=== PATIENT | female | born 1960 | race Caucasian/White ===

== ENCOUNTER 2017-12-10 09:51 | Outpatient (CLI) | payer MEDICAID ==
[~2017-12-10] VITALS: Ht 162.6 cm; Wt 101.4 kg
--- NOTE | ~2017-12-10 | OP ---
PATIENT NAME: OBI RODRÍGUEZ MEDICAL RECORD: [id number] :58 LOCATION:D.CAT ADMISSION DATE: SURGEON: AIDEN CASTILLO MD DATE OF OPERATION: 12/10/2017 PROCEDURE: DC cardioversion. INDICATION: Atrial fibrillation. PROCEDURE IN DETAIL: IV conscious sedation was performed per anesthesia. Continuous heart rate, O2 saturation, blood pressure monitoring all undertaken, all of which remained stable. She received 1 shock at 275 joules restoring sinus rhythm. OVERALL IMPRESSION: Successful DC cardioversion from atrial fibrillation to sinus rhythm. TRANSINT:[id number] Voice Confirmation ID: [id number] DOCUMENT ID: [id number] AIDEN CASTILLO MD at 1056 CC: [id number] DICTATION DATE: 12/10/17 1319 ENDODONTICS DENTIST: 12/10/17 1327 DEP CLI 12/10/[address] [address]
--- NOTE | ~2017-12-10 | HEMODYNAMI ---
PATIENT:OBI RODRÍGUEZ MEDICAL RECORD: [id number] : 58 LOCATION:DCHRISTAL ADMISSION DATE: 12/10/17 Generatedon:12/10/201713:22 Patient name: OBI RODRÍGUEZ Patient #: [id number] SSN: : 1960 Date of study: 12/10/2017 Page: Of Hemodynamic Procedure Report Patient Data Patient Demographics Procedure consent was obtained First Name: OBI Gender: Female Last Name: MARCOS : 1960 Middle Initial: OLIVIER Age: 57 year(s) Patient #: [id number] Race: Unknown Additional ID: [id number] Contact details [address]: [address] [place] [address] State: [place] City: [place] Zip code: [address] Past Medical History Allergies Allergen Reaction Date Comments Reported Codeine 12/10/2017 Amoxicillin 12/10/2017 Admission Admission Data Admission Date: 12/10/2017 Admission Time: 9:51 Procedure Procedure Types Cath Procedure Diagnostic Procedure Cardioversion External Procedure Description Procedure Date Procedure Date: 12/10/2017 Procedure Start Time: 13:14 Procedure End Time: 13:21 Procedure Staff Name Function Rocky Orr MD Performing Physician Keerthi Barcenas RT Monitor Florentino Fernandez RN Nurse Raymond Jang CRNA Additional personnel Procedure Medications Medication Administration Route Dosage 0.9% NaCl I.V. 100 ml/hr Oxygen etCO2 Nasal cannula 3 l/min Refer to Anesthesia Notes for Sedation Medications Hemodynamics Rest Pre Cath Intra NCS Post Cath Vital Signs Time Heart Resp SPO2 etCO2 NIBP (mmHg) Rhythm Pain Sedation Rate (ipm) (%) (mmHg) Status Level (bpm) 13:13:23 131 17 100 35 210/139(192) NSR 0 (11) 10(A) , No pain 13:18:41 91 23 93 38.8 165/99(135) NSR 0 (11) 8(A) , No pain 13:20:23 91 19 94 40.3 161/94(140) NSR 0 (11) 10(A) , No pain Medications Time Medication Route Dose Verified Delivered Reason Notes Effective ness by by 13:12:58 0.9% NaCl I.V. 100 Florentino Florentino Per ml/hr Jim Fernadnez physician RN RN 13:13:10 Oxygen etCO2 3 Florentino Florentino Per Nasal l/min Jim Fernandez physician cannula RN RN 13:13:21 Refer to Florentino Florentino for Anesthesia Jim Fernandez sedation Notes for RN RN Sedation Medications Procedure Log Time Note 12:59:40 Keerthi Counts RT(R) sent for patient. Start room use. 12:59:41 Time tracking: Regular hours 12:59:44 Plan of Care:Hemodynamics will remain stable., Cardiac rhythm will remain stable., Comfort level will be maintained., Respiratory function will remain adequate., Patient/ family verbilizes understanding of procedure., Procedure tolerated without complication., Recovers from procedure without complications.. 13:05:24 Patient received from Pre/Post Procedure Room to CCL 1 Alert and oriented. Tansferred to table in Supine position. 13:10:30 Warm blankets applied, and lian hugger turned on for patient comfort. 13:10:30 Correct patient and procedure confirmed by team. 13:10:31 Signed procedure consent form obtained from patient. 13:10:33 Vital chart was started 13:10:34 ECG and BP/O2 sat monitors applied to patient. 13:11:07 Rhythm: atrial fibrillation 13:11:08 Full Disclosure recording started 13:11:18 H&P Date Dictated: 12/02/2017 Within 30 days and on chart., H&P Addendum completed by physician on day of procedure. (MUST COMPLETE FOR ALL OUTPATIENTS). 13:11:19 Pre-procedure instructions explained to patient. 13:11:20 Pre-op teaching completed and patient verbalized understanding. 13:11:22 Family in waiting room. 13:11:23 Patient NPO since Midnight. 13:11:32 Patient allergic to Codeine 13:11:36 Patient allergic to Amoxicillin 13:11:55 Is patient on blood thinner?Yes 13:11:57 ACC The patient was administered the following blood thiners within the last 24 hours: Xarelto 13:12:00 Patient diabetic? No. 13:12:03 Previous problem with sedation/anesthesia? No ? 13:12:04 Snore? Yes 13:12:05 Sleep apnea? No 13:12:05 Deviated septum? No 13:12:06 Opens mouth fully? Yes 13:12:07 Sticks out tongue? Yes 13:12:09 Airway obstruction? No ? 13:12:18 Dentures? No No Teeth 13:12:35 IV patent on arrival in left forearm with 0.9% NaCl at [facility]. 13:12:38 Lab results completed and on chart. 13:12:41 Alarms reviewed by RLibra N. 13:12:42 Final Timeout: patient, procedure, and site verified with staff and physician. All members of the team are in agreement. 13:12:47 Physical assessment completed. ASA score P 2 - A patient with mild systemic disease as per Rocky Orr MD. 13:12:50 Sedation plan: TIVA Medication:Propofol 13:12:58 0.9% NaCl 100 ml/hr I.V. was administered by Florentino Fernandez RN; Per physician; 13:13:10 Oxygen 3 l/min etCO2 Nasal cannula was administered by Florentino Fernandez RN; Per physician; 13:13:18 Raymond Jang CRNA present and monitoring patient for TIVA. 13:13:19 Quick combo pads placed on patients chest and back. 13:13:21 Refer to Anesthesia Notes for Sedation Medications was administered by Florentino Fernandez RN; for sedation; 13:14:39 Procedure started. 13:15:43 Defibrillator synced and charged to 275 Joules. 13:15:45 Shock delivered. 13:15:54 Patient cardioverted to sinus rhythm . 13:16:01 Procedure ended.(Physican Out) 13:17:06 Post procedure rhythm: sinus rhythm 13:17:12 Post procedure instruction explained to patient.Patient verbalizes understanding. 13:17:12 Patient needs reinforcement of post procedure teaching. 13:17:21 Procedure and supply charges have been captured, reviewed, submitted and are correct. 13:17:26 See physician's report for complete and final results. 13:17:39 Quick Combo opened to sterile field. 13:20:45 Vital chart was stopped 13:20:47 Report given to Pre/Post Procedure Room. 13:20:49 Patient transfered to Pre/Post Procedure Room with Stretcher. 13:21:02 Procedure ended. 13:21:02 Full Disclosure recording stopped 13:21:04 End room use (Document Last) Device Usage Item Manufacture Quantity Catalog Hospital Part Current Minimal Lot# / Name Number Charge Number Stock Dianne teran# Code Cloudmeter 1 [id number] Combo Signature Audit Peel Stage Time Signature Unsigned Intra-Procedure 12/10/2017 Keerthi 1:22:27 PM Counts RT(R) Signatures Monitor : Keerthi Signature : Counts RT Date : Time : [address] [address]
[2017-12-10] MEDS ORDERED: FUROSEMIDE20 MG PO (11:12)
[2017-12-10] MEDS ORDERED: XARELTO20 MG PO (11:12)
[2017-12-10 11:13] VITALS: BP 186/133; Ht 162.6 cm; Wt 101.4 kg
[2017-12-10] MEDS ORDERED: ZANTAC300 MG PO (11:13)
[2017-12-10] MEDS ORDERED: PROPAFENONE HC150 MG PO (11:13)
[2017-12-10] MEDS ORDERED: LISINOPRIL10 MG PO (11:13)
[2017-12-10 11:19] LABS: BASOPHILS 0.5 % (0-2); HEMATOCRIT 44.1 % (36.0-48.0); HEMOGLOBIN 15.4 g/dL (12-16); IMMATURE GRANULOCYTES 0.2 % (0-5); LYMPHOCYTES 30.7 % (15-50); MCH 33.7 pg (26.0-34.0); MCHC 34.9 g/dL (31.0-37.0); MCV 96.5 fL (80.0-100.0); MEAN PLATELET VOLUME 11.4 fL (7.4-10.4); MONOCYTES 11.5 % (2-11); NEUTROPHILS 55.1 % (40-80); PLATELET COUNT 108 10x3/uL (130-400); RBC 4.57 10x6/uL (4.00-5.40); RDW 13.4 % (11.5-14.5); WBC 5.9 10x3/uL (4.8-10.8)
[2017-12-10 11:34] LABS: ANION GAP 12.3 mmol/L (8-16); CARBON DIOXIDE 28.9 mmol/L (21.0-32.0); CREATININE - SERUM 1.1 mg/dL (0.6-1.3); POTASSIUM - SERUM 4.2 mmol/L (3.5-5.1)
[2017-12-10 11:36] LABS: INR 1.89 (0.85-1.17); PROTIME 21.1 SECONDS (11.6-15.0)
== END 2017-12-10 14:48 | disposition home or self-care (01) ==
LOC: D.CATH 09:51
PROVIDERS: Internal Medicine Interventional Cardiology
DX: I48.91 Unspecified atrial fibrillation (principal); Z01.812 Encounter for preprocedural laboratory examination

== ENCOUNTER 2019-06-25 03:45 | Inpatient (IN) | payer MEDICAID ==
[~2019-06-25] VITALS: Ht 162.6 cm; Wt 109.0 kg
[~2019-06-25 03:45] MED LIST: FUROSEMIDE20 MG PO; LISINOPRIL10 MG PO; PROPAFENONE HC150 MG PO; XARELTO20 MG PO; ZANTAC300 MG PO
[2019-06-25] MEDS ORDERED: REXULTI1 MG PO (03:54)
[2019-06-25] MEDS ORDERED: CARDIZEM60 MG PO (03:55)
[2019-06-25] MEDS ORDERED: AMBIEN10 MG PO (03:55)
[2019-06-25] MEDS ORDERED: BETAPACE 120 M120 MG PO (03:55)
[2019-06-25 04:11] LABS: BASOPHILS 0.3 % (0-2); EOSINOPHILS 0.3 % (0-7); HEMATOCRIT 43.2 % (36.0-48.0); HEMOGLOBIN 14.7 g/dL (12-16); IMMATURE GRANULOCYTES 0.3 % (0-5); MCH 33.3 pg (26.0-34.0); MEAN PLATELET VOLUME 11.5 fL (7.4-10.4); MONOCYTES 7.9 % (2-11); NEUTROPHILS 74.2 % (40-80); PLATELET COUNT 162 10x3/uL (130-400); RBC 4.41 10x6/uL (4.00-5.40); WBC 11.8 10x3/uL (4.8-10.8)
[2019-06-25 04:23] LABS: APTT 28.5 SECONDS (22.8-39.4); CALC OSMOLALITY 260 mosm/kg (275-300); CALCIUM 9.1 mg/dL (8.5-10.1); CARBON DIOXIDE 27.4 mmol/L (21.0-32.0); CHLORIDE - SERUM 95 mmol/L (98-107); CREATININE - SERUM 1.1 mg/dL (0.6-1.3); GLUCOSE 117 mg/dL (74-106); INR 1.28 (0.85-1.17); POTASSIUM - SERUM 3.8 mmol/L (3.5-5.1); PROTIME 15.4 SECONDS (11.6-15.0); SODIUM 129 mmol/L (136-145); UREA NITROGEN 16 mg/dL (7-18); eGFR NON AFRICAN AMERICAN 54 mL/min (90-120)
[2019-06-25 04:24] LABS: D-DIMER-QUANTITATIVE 1.69 ug/mLFEU (0.20-0.54)
[2019-06-25 04:51] LABS: ALKALINE PHOSPHATASE 69 U/L (46-116); ALT (SGPT) 7 U/L (10-68); BILIRUBIN - TOTAL 1.36 mg/dL (0.2-1.3); CKMB 0.2 U/L (0.0-3.6); CREATINE KINASE 31 UL (21-215); PROTEIN - SERUM 9.2 g/dL (6.4-8.2); TROPONIN-I < 0.017 ng/mL (0.000-0.060); URIC ACID 9.7 mg/dL (2.6-7.2)
--- NOTE | 2019-06-25 05:16 | NUR ---
PT LEFT ED VIA STRETCHER FOR CT.
--- NOTE | 2019-06-25 05:41 | NUR ---
PT REMAINS IN RADIOLOGY FOR US.
--- NOTE | 2019-06-25 05:53 | NUR ---
PT RETURNED FROM RADIOLOGY VIA STRETCHER.
--- NOTE | 2019-06-25 06:30 | NUR ---
PT ASSISTED WITH BEDPAN. APPROX 100ML DARK YELLOW URINE NOTED.
--- NOTE | 2019-06-25 06:49 | NUR ---
RN CALLED AND UPDATED PT SPOUSE, PONCHO, PER PT REQUEST, ON PLAN OF CARE.
[2019-06-25 12:12] VITALS: BP 143/71; BMI 39.5
[2019-06-25 12:38] VITALS: BP 146/89
[2019-06-25 16:09] VITALS: BP 109/70
[2019-06-25 21:09] VITALS: BP 113/57
[2019-06-26 00:53] VITALS: BP 99/55
--- NOTE | 2019-06-26 05:41 | NUR ---
PT ANXIOUS AND CRYING. STATES PAIN TOO GREAT, CAN'T GET ANY SLEEP AND NEEDS SOMETHING "MORE". TRIED TO CALM PT DOWN. ELEVATED FEET ON PILLOWS. GAVE DEMEROL 50 MG AND ATIVAN 1 MG IV PUSH. PT STARTING TO RELAX. NO OTHER NEEDS. WILL CONTINUE TO MONITOR.
[2019-06-26 06:50] LABS: BASOPHILS 0.2 % (0-2); EOSINOPHILS 1.4 % (0-7); LYMPHOCYTES 21.5 % (15-50); MCHC 32.9 g/dL (31.0-37.0); MEAN PLATELET VOLUME 11.2 fL (7.4-10.4); MONOCYTES 8.5 % (2-11); NEUTROPHILS 68.4 % (40-80); RDW 13.3 % (11.5-14.5)
[2019-06-26 06:56] LABS: HEMOGLOBIN 11.5 g/dL (12-16); MCV 100.3 fL (80.0-100.0); PLATELET COUNT 117 10x3/uL (130-400); RBC 3.49 10x6/uL (4.00-5.40); WBC 6.2 10x3/uL (4.8-10.8)
[2019-06-26 07:34] LABS: ANION GAP 10.1 mmol/L (8-16); CALCIUM 8.2 mg/dL (8.5-10.1); CARBON DIOXIDE 29.4 mmol/L (21.0-32.0); CREATININE - SERUM 1.3 mg/dL (0.6-1.3); PHOSPHOROUS 3.2 mg/dL (2.5-4.9); POTASSIUM - SERUM 3.5 mmol/L (3.5-5.1)
--- NOTE | 2019-06-26 07:38 | NUR ---
PT RESTING IN BED. NO SIGNS OF DISTRESS. IV TO RIGHT WRIST PATENT NO REDNESS OR TENDERNESS. RIGHT FOOT SWOLLEN. ON TELEMETRY 80 SR. DENIES ANY FURTHER NEED AT THIS TIME. CALL LIGHT IN REACH. BED LOW POSITION. NO FAMILY AT BEDSIDE.
[2019-06-26 08:01] VITALS: BP 124/74
[2019-06-26 12:41] LABS: % SATURATION 11 % (15-55); IRON 22 ug/dl (35-150); TOTAL IRON BIND CAPACITY 195 ug/dl (260-445); UNSAT IRON BIND CAPACITY 173 ug/dl (150-375)
[2019-06-26 13:20] VITALS: BP 99/64
--- NOTE | 2019-06-26 13:46 | NUR ---
I have reviewed this patient and I concur with the Shift Assessment completed by the Licensed Practical Nurse today this shift.
[2019-06-26 16:47] VITALS: BP 126/68
[2019-06-26 20:50] VITALS: BP 146/50
--- NOTE | 2019-06-27 00:27 | NUR ---
REC'D DURING WALKING ROUNDS LYING ON RIGHT SIDE EYES CLOSED RESP; DEEP AND EVEN WILL CONTINUE TO MONITOR FOR ANY CHGES. AND FOLLOW CURRENT PLAN OF CARE
[2019-06-27 01:04] VITALS: BP 114/61
--- NOTE | 2019-06-27 03:57 | NUR ---
I have reviewed this patient and I concur with the Shift Assessment completed by the Licensed Practical Nurse today this shift.
[2019-06-27 04:42] VITALS: BP 135/72
[2019-06-27 06:08] LABS: BASOPHILS 0.1 % (0-2); HEMATOCRIT 35.1 % (36.0-48.0); HEMOGLOBIN 11.4 g/dL (12-16); IMMATURE GRANULOCYTES 0.1 % (0-5); LYMPHOCYTES 16.2 % (15-50); MCHC 32.5 g/dL (31.0-37.0); MCV 101.7 fL (80.0-100.0); MEAN PLATELET VOLUME 11.6 fL (7.4-10.4); MONOCYTES 10.6 % (2-11); PLATELET COUNT 120 10x3/uL (130-400); RBC 3.45 10x6/uL (4.00-5.40); RDW 13.4 % (11.5-14.5); WBC 6.9 10x3/uL (4.8-10.8)
[2019-06-27 06:44] LABS: ALBUMIN 2.5 g/dL (3.4-5.0); ANION GAP 9.5 mmol/L (8-16); BILIRUBIN - TOTAL 1.06 mg/dL (0.2-1.3); CALCIUM 8.5 mg/dL (8.5-10.1); CARBON DIOXIDE 28.4 mmol/L (21.0-32.0); CREATININE - SERUM 1.1 mg/dL (0.6-1.3); POTASSIUM - SERUM 3.9 mmol/L (3.5-5.1); PROTEIN - SERUM 7.2 g/dL (6.4-8.2)
--- NOTE | 2019-06-27 07:00 | NUR ---
PATIENT RECIEVED FROM PREVIOUS SHIFT. RESTING IN BED WITH EYES CLOSED. AROUSED EASILY, AWAKE ORIENTED, MILD REDNESS TO RIGHT FOOT WITH 2+ EDEMA NOTED. CL IN REACH
[2019-06-27 08:27] VITALS: BP 135/80
[2019-06-27 12:34] VITALS: BP 101/63
--- NOTE | 2019-06-27 14:06 | NUR ---
RIGHT FOOT PAIN NOT RELIEVED WITH TYLENOL. ORDER OBTAINED TO GIVE NORCO, WILL CONT TO MONITOR
[2019-06-27 16:06] LABS: APPEARANCE CLEAR (CLEAR); BILIRUBIN NEGATIVE (NEGATIVE); COLOR DK YELLOW (YELLOW); GLUCOSE NEGATIVE (NEGATIVE); KETONE NEGATIVE (NEGATIVE); NITRITE NEGATIVE (NEGATIVE); PROTEIN NEGATIVE (NEGATIVE); SPECIFIC GRAVITY 1.015 (1.005-1.020)
[2019-06-27 17:19] VITALS: BP 103/53
--- NOTE | 2019-06-27 20:00 | NUR ---
ALERT RESTING IN BED FLAT ON BACK, STATES BACK FEELS BETTER THIS WAY, RESP UNLABORED O2 IN USE AT 2L N/C, EDEMA NOTED TO BILATERAL FEET AND ANKLES, RIGHT WORSE WITH REDNESS NOTED, SEE SHIFT ASSESSMENT CALL LIGHT IN REACH
[2019-06-27 20:34] VITALS: BP 123/65
--- NOTE | 2019-06-28 00:15 | NUR ---
CALLED TO ROOM BY PT SITTING UP ON SIDE OF BED STATES I CANT BREATH,AND IM NAUSEATED O2 SAT CHECKED AT 87% ON 2 L, ENCOURAGED TO BREATH IN THROUGH NOSE AND OUT THROUGH MOUTH O2 CONTINUES AT 2 L N/C, O2 SAT REMAINING AT 86-89%, O2 INCREASED TO 3 L O2 SAT UP TO 90-91 %, RT NOTIFIED, NOW LYING BACK IN BED, REFUSED TO HAVE HOB ELEVATED, STATES FEELING BETTER
--- NOTE | 2019-06-28 00:45 | NUR ---
AGAIN CALLED TO ROOM APEARS SHORT OF BREATH WITH AUDIABLE WHEEZING NOTED, O2 SAT PER RT AT 88% INCREASED O2 TO 4L, Hunter PAUL ANP NOTIFIED OF ABOVE ORDERS RECIEVED, RT NOTIFIED OF ORDER FOR RT TX
[2019-06-28 01:19] VITALS: BP 130/74
[2019-06-28 05:03] VITALS: BP 143/88
[2019-06-28 05:55] LABS: BASOPHILS 0.2 % (0-2); EOSINOPHILS 0.5 % (0-7); HEMATOCRIT 32.7 % (36.0-48.0); HEMOGLOBIN 10.7 g/dL (12-16); IMMATURE GRANULOCYTES 0.3 % (0-5); LYMPHOCYTES 7.5 % (15-50); MCH 33.4 pg (26.0-34.0); MCHC 32.7 g/dL (31.0-37.0); MCV 102.2 fL (80.0-100.0); MEAN PLATELET VOLUME 12.1 fL (7.4-10.4); MONOCYTES 9.5 % (2-11); PLATELET COUNT 139 10x3/uL (130-400); RDW 13.2 % (11.5-14.5)
[2019-06-28 06:14] LABS: ALBUMIN 2.5 g/dL (3.4-5.0); ANION GAP 9.5 mmol/L (8-16); BILIRUBIN - TOTAL 0.9 mg/dL (0.2-1.3); CALCIUM 8.2 mg/dL (8.5-10.1); CARBON DIOXIDE 27.3 mmol/L (21.0-32.0); CREATININE - SERUM 1.1 mg/dL (0.6-1.3); POTASSIUM - SERUM 3.8 mmol/L (3.5-5.1); PROTEIN - SERUM 7.3 g/dL (6.4-8.2); VANCOMYCIN - TROUGH 17.8 ug/mL (10.0-20.0)
--- NOTE | 2019-06-28 07:25 | NUR ---
ALERT AND ORIENTED, RESTING IN BED. NO C/O PAIN. NO S/S OF ACUTE DISTRESS NOTED. IV OUT. RIGHT FOOT CELLULITIS, REDNESS AND SWELLING PRESENT. TELEMETRY 100 CONTROLLED AFIB. ON 4L O2, NC. PATIENT DENIES ANY NEEDS A THIS TIME. CALL LIGHT IN REACH. WILL CONTINUE TO MONITOR.
[2019-06-28 09:21] VITALS: BP 119/51
--- NOTE | 2019-06-28 11:31 | NUR ---
I have reviewed this patient and I concur with the Shift Assessment completed by the Licensed Practical Nurse today this shift.
--- NOTE | 2019-06-28 11:33 | NUR ---
Rehab Note- Acute Inpatient Rehab prescreen order received. The patient has [employer] Insurance and will require a PreAuth prior to an inpatient acute rehab stay. Has a pending OT Eval that will need to be done for PreAuth process. Will begin PreAuth process. Will follow at this time. Thank you for this referral! Teri Del Rio RN Clinical Liaison, [facility] Rehab
[2019-06-28 12:40] VITALS: BP 113/56
--- NOTE | 2019-06-28 12:41 | NUR ---
Rehab Note- SPoke with Mary Anne schafer/ July to verify benefits, spoke with Luz Elena with the care management team to initiate a PreAuth. Faxed clinicals to [phone]. Will await determination from Maiice. Will continue to follow at this time. Thank you for this referral! Teri Del Rio RN Clinical Liaison, [facility] Rehab
--- NOTE | 2019-06-28 13:01 | MORECARE ---
CASE MANAGEMENT DISCHARGE SUMMARY PATIENT: OBI RODRÍGUEZ UNIT: [id number] ADM DATE: 06/25/19 AGE: 59 : 58 SEX: F [facility] AUTHOR: CHIQUITA ISLAS PHYSICIAN: REFERRING PHYSICIAN: MIC ORR MD DATE OF SERVICE: 06/28/19 Discharge Plan Patient Name: OBI RODRÍGUEZ Facility: [facility]:[place] : 1960 Planned Disposition: Inpatient Rehab Anticipated Discharge Date: Discharge Date: Expected LOS: Initial Reviewer: [email or web address] Initial Review Date: 06/28/2019 Generated: 06/28/19 2:00 pm Patient Name: OBI RODRÍGUEZ Page [id number] at 1301 All edits/amendments must be made on the electronic document DICTATION DATE: 06/28/19 1300 HEAD OF MARKETING ADOMETRY: AUTUMN 06/28/19 1300 RPT#: [id number] DC DATE: STATUS: ADM IN [facility] [address] [place] [address] END OF REPORT
--- NOTE | 2019-06-28 13:13 | MORECARE ---
CASE MANAGEMENT DISCHARGE SUMMARY PATIENT: OBI LAST UNIT: [id number] ADM DATE: 06/25/19 AGE: 59 : 58 SEX: F ROOM/BED: D.2235 AUTHOR: JANEL,DOC PHYSICIAN: REFERRING PHYSICIAN: MIC ORR MD DATE OF SERVICE: 06/28/19 Discharge Plan Patient Name: OBI LAST Facility: [facility]:[place] : 1960 Planned Disposition: Inpatient Rehab Anticipated Discharge Date: Discharge Date: Expected LOS: Initial Reviewer: [email or web address] Initial Review Date: 06/28/2019 Generated: 06/28/19 2:12 pm Comments DCP- Discharge Planning Updated by [email or web address]: Amita Guerrier on 06/28/19 12:[address] Patient Name: OBI LAST Admission Status: Elective Accout number: [id number] Admission Date: 06-25-2019 : 1960 Admission Diagnosis: Attending: MIC ORR Current LOS: 3 Anticipated DC Date: Planned Disposition: Inpatient Rehab [facility] [place] [facility] [place] Discharge Planning Comments: CM met with patient to discuss discharge planning/needs. She states she is tired and to ask questions quickly. I offered to return later and she says "no". She states she lives with her . She states "he helps me with everything." I discussed the availability of inpatient rehab, SNF, home health and DME. She states "I don't know, I just want to go to sleep." I asked if I could order inpatient rehab screen, and she states yes. Rehab prescreen has been ordered as well as OT and PT consults. CM will continue to follow and assist with discharge planning/needs. Carpet Technician: Amita Guerrier DCPIA - Discharge Planning Initial Assessment Updated by [email or web address]: Amita Guerrier on 06/28/19 1:05 pm * Is the patient Alert and Oriented? Yes * How many steps to enter\\exit or inside your home? 0/0 * PCP Dr. Keane at [facility] * Pharmacy [facility] on [address] * Preadmission Environment Home with Family * ADLs Partial Dependent * Partial ADLs (Assistance needed) Ambulation Bathing Dressing Medication Management Toileting Transfers * Equipment Rolling Walker Wheelchair * List name and contact numbers for known caregivers / representatives who currently or will assist patient after discharge: Barrera Last - spouse - [phone] * Verbal permission to speak to the caregivers and representatives has been obtained from the patient. Yes * Community resources currently utilized None * Additional services required to return to the preadmission environment? Yes * Can the patient safely return to the preadmission environment? No * Has this patient been hospitalized within the prior 30 days at any hospital? No Last DP export: 06/28/19 12:01 Patient Name: OBI LAST Page [phone] at 1313 All edits/amendments must be made on the electronic document DICTATION DATE: 06/28/191311 PIANO CASE AND BENCH ASSEMBLER: AUTUMN 06/28/191311 RPT#: [id number] SD DATE: STATUS: ADM IN [facility] [address] [place] [address] END OF REPORT
[2019-06-28 13:20] VITALS: Ht 162.6 cm; Wt 109.0 kg
[2019-06-28 16:56] VITALS: BP 113/69
--- NOTE | 2019-06-28 17:23 | NUR ---
OT NOTE: PT EXHIBITS SELF LIMITING BEHAVIOR. PT COMPLETED BED MOB TASKS WITH MOD A. PT COMPLETED EOB SITTING WITH SBA. PT COMPLETED FACE/HAND WASH WITH SET UP. PT REQUIRED MAX VERBAL CUES FOR INCREASED PARTICIPATION. JESSICA GOMEZ COTA
--- NOTE | 2019-06-28 18:37 | NUR ---
ALERT AND ORIENTED, RESTING IN BED. C/O PAIN, GAVE NORCO FOR PAIN. NO S/S OF ACUTE DISTRESS NOTED. DENIES ANY NEEDS AT THIS TIME. CALL LIGHT IN REACH. WILL CONTINUE TO MONITOR.
--- NOTE | 2019-06-28 19:34 | NUR ---
IN BED WITH TELEVISION ON, IV TO LEFT HAND IS PATENT AT THIS TIME. MVI INFUSING PER ORDERS. TELEMETRY IN USE. DOES NOT WANT TO TAKE AMBIEN THIS EVENING, STATES SHE DOES NOT LIKE HOW IT MADE HER FEEL LAST DOSE. WILL NOTE ANY CHANGE.
[2019-06-28 20:39] VITALS: BP 158/72
--- NOTE | 2019-06-28 23:53 | NUR ---
PT IV WAS NO LONGER PATENT, 24G TO OUTER LEFT WRIST TIMES ONE STICK VIA CHARGE NURSE, FLUIDS RESUMED PER ORDERS. WILL NOTE ANY CHANGE.
--- NOTE | 2019-06-29 00:09 | NUR ---
REQUESTED MEDS FOR QUEASY STOMACH, GIVEN ZOFRAN PER ORDERS. ALSO USED BEDPAN WITH MINIMAL ASSIST.
[2019-06-29 01:22] VITALS: BP 154/70
--- NOTE | 2019-06-29 01:41 | NUR ---
I have reviewed this patient and I concur with the Shift Assessment completed by the Licensed Practical Nurse today this shift.
--- NOTE | 2019-06-29 03:49 | NUR ---
assisted on bedpan by this nurse times 3 this shift, did not want to put weight on feet for bedside commode.
--- NOTE | 2019-06-29 03:58 | NUR ---
HAS RESTED WELL THIS SHIFT, BUT WHEN THIS NURSE GOES TO CHECK ON PT, SHE WAKES UP AND SAYS SHES NOT HAVING A GOOD NIGHT, THIS NURSE REASSURES HER THAT SHE APPEARS TO BE RESTING AND HAS NO OBVIOUS DISTRESS AT THIS TIME.
[2019-06-29 05:03] VITALS: BP 120/66
[2019-06-29 06:13] LABS: BASOPHILS 0.2 % (0-2); EOSINOPHILS 1.6 % (0-7); HEMATOCRIT 32.2 % (36.0-48.0); HEMOGLOBIN 10.2 g/dL (12-16); IMMATURE GRANULOCYTES 0.3 % (0-5); LYMPHOCYTES 15.8 % (15-50); MCH 32.8 pg (26.0-34.0); MCHC 31.7 g/dL (31.0-37.0); MCV 103.5 fL (80.0-100.0); MEAN PLATELET VOLUME 12.5 fL (7.4-10.4); MONOCYTES 10.2 % (2-11); NEUTROPHILS 71.9 % (40-80); PLATELET COUNT 127 10x3/uL (130-400); RBC 3.11 10x6/uL (4.00-5.40); RDW 13.4 % (11.5-14.5)
[2019-06-29 06:43] LABS: ALBUMIN 2.3 g/dL (3.4-5.0); ANION GAP 9.1 mmol/L (8-16); BILIRUBIN - TOTAL 0.46 mg/dL (0.2-1.3); CALCIUM 8.8 mg/dL (8.5-10.1); CARBON DIOXIDE 26.7 mmol/L (21.0-32.0); CREATININE - SERUM 1.1 mg/dL (0.6-1.3); POTASSIUM - SERUM 3.8 mmol/L (3.5-5.1); PROTEIN - SERUM 7.6 g/dL (6.4-8.2)
[2019-06-29 06:58] LABS: WBC 6.1 10x3/uL (4.8-10.8)
--- NOTE | 2019-06-29 07:05 | NUR ---
ALERT AND ORIENTED, RESTING IN BED. NO C/O PAIN. NO S/S OF ACUTE DISTRESS NOTED. 4L 02, NC. TELEMETRY 75 CONTROLLED AFIB. IV TO LEFT HAND, MVI @ 125ML/HR. SITE PATENT WITHOUT REDNESS OR SWELLING. BLE SWELLING AND REDNESS TO RIGHT FOOT. DENIES ANY NEEDS AT THIS TIME. CALL LIGHT IN REACH. WILL CONTINUE TO MONITOR.
[2019-06-29 09:21] VITALS: BP 123/75
--- NOTE | 2019-06-29 11:33 | NUR ---
I have reviewed this patient and I concur with the Shift Assessment completed by the Licensed Practical Nurse today this shift.
[2019-06-29 13:10] VITALS: BP 116/72
--- NOTE | 2019-06-29 15:11 | NUR ---
OT NOTE: PT INITIALLY RESISTANT TO MOVING FROM BED. STATED THAT SHE NEEDED TO URINATE BUT DID NOT WANT TO USE BS COMMODE. STRONGLY ENCOURAGED PT TO PERFORM IF SHE WANTED TO IMPROVE AND RETURN HOME. BED MOB WITH MIN ASSIST AND EXT TIME; SIT TO STAND WITH MIN ASSIST AND USE OF WALKER; TRANSFERRED TO BS COMMODE WITH CONTINUOUS COMPLAINTS OF PAIN AND FREQ EPISODES OF CRYING. PT STATING THAT SHE CANT WIPE HERSELF SHE CANT REACH BETWEEN HER LEGS. HAD PT MAKE NUMEROUS ATTEMPTS TO PERFORM TOILET HYGIENE BEFORE ASSISTING HER. PT STRONGLY ENCOURAGED TO SIT UP IN CHAIR FOLLOWING TOILETING. PT VERY RESISTANT BUT DID AGREE TO SIT UP FOR A SHORT TIME. RECOMMENDED THAT PT SIT UP THROUGH LUNCH, HOWEVER, AFTER APPROX 30 MIN SHE REFUSED TO SIT UP ANY LONGER. ASSISTED PT BACK TO BED AND SHE BECAME VERBALLY INAPPROPRIATE WITH P.T. SENIOR ACCOUNT REPRESENTATIVE. EXPLAINED TO PT THAT THIS WAS NOT NECESSARTY TO SPEAK TO US THIS WAY AND THAT WE ARE TRYING TO HELP HER. PT HAD COMPLETE CHANGE OF ATTITUDE. PROFUSELY APPOLOGIZING AND AMAZINGLY TAKING STEPS WITHOUT C/O PAIN; GOT BACK INTO BED WITHOUT ASSIST AND NO COMPLAINTS. CONTINUED TO APPOLOGIZE. GHISLAINE OSMAN, OTR/L
--- NOTE | 2019-06-29 15:16 | NUR ---
I have reviewed this patient and I concur with the Shift Assessment completed by the Licensed Practical Nurse today this shift.
[2019-06-29 16:21] VITALS: BP 121/89
--- NOTE | 2019-06-29 17:12 | NUR ---
OT NOTE: PT COMPLETED BED MOB TASKS WITH MOD/MAX A. PT COMPLETED HYGIENE TASKS WITH MAX A. PT REQUIRED MAX VERBAL CUES FOR INCREASED PARTICIPATION. THANK YOU, TANIA VAZQUEZ
[2019-06-29 20:00] VITALS: BP 117/65
[2019-06-30] VITALS: BP 112/66
--- NOTE | 2019-06-30 01:37 | NUR ---
PATIENT IS ALERT AND ORENTED ABLE TO VOICE NEEDS AND WANTS TO STAFF. IV TO LEFT HAND SL , O2 AT 4L VIA N/C. CALL LIGHT AND FLUIDS IN REACH. NO S/S OF DESTRESS AT THIS TIME,
[2019-06-30 04:00] VITALS: BP 150/86
[2019-06-30 05:45] LABS: BASOPHILS 0.4 % (0-2); HEMATOCRIT 31.9 % (36.0-48.0); HEMOGLOBIN 10.1 g/dL (12-16); IMMATURE GRANULOCYTES 0.4 % (0-5); LYMPHOCYTES 16.8 % (15-50); MCHC 31.7 g/dL (31.0-37.0); MCV 104.2 fL (80.0-100.0); MEAN PLATELET VOLUME 12.2 fL (7.4-10.4); MONOCYTES 10.9 % (2-11); NEUTROPHILS 69.5 % (40-80); PLATELET COUNT 136 10x3/uL (130-400); RBC 3.06 10x6/uL (4.00-5.40); RDW 13.5 % (11.5-14.5); WBC 5.1 10x3/uL (4.8-10.8)
[2019-06-30 06:30] LABS: ALBUMIN 2.3 g/dL (3.4-5.0); ANION GAP 14.3 mmol/L (8-16); BILIRUBIN - TOTAL 0.43 mg/dL (0.2-1.3); CALCIUM 8.8 mg/dL (8.5-10.1); CARBON DIOXIDE 24.7 mmol/L (21.0-32.0); CREATININE - SERUM 1.1 mg/dL (0.6-1.3); PROTEIN - SERUM 6.8 g/dL (6.4-8.2)
--- NOTE | 2019-06-30 07:20 | NUR ---
ALERT AND ORIENTED, RESTING IN BED. C/O PAIN, TYLENOL GIVEN FOR PAIN. NO S/S OF ACUTE DISTRESS NOTED. ON 3L 02, NC. IV TO LEFT WRIST, SL. SITE PATENT WITHOUT REDNESS OR SWELLING. TELEMETRY 89 CONTROLLED AFIB. SWELLING TO BILATERAL FEET. PATIENT DENIES ANY NEEDS AT THIS TIME. CALL LIGHT IN REACH. WILL CONTINUE TO MONITOR.
[2019-06-30 09:50] VITALS: BP 141/81
--- NOTE | 2019-06-30 10:37 | NUR ---
OT NOTE: PT MORE COOPERATIVE TODAY. BED MOB TO INCLUDE ROLLING AND SUPINE TO SIT WITH MOD ASSIST. SITTING BALANCE GOOD ON EOB. MOD ASSIST TO GUICHO SOCKS; TOILET TRANSFER WITH WALKER AND MIN ASSIST; MAX ASSIST WITH TOILET HYGIENE; SIMPLE GROOMING TASKS WITH SET UP; ABLE TO TAKE A FEW STEPS FROM BS COMMODE TO CHAIR WITH MIN ASSIST. PT REQUIRED LESS ENCOURAGEMENT TODAY AND DID NOT ARGUE ABOUT GETTING UP FROM BED. ENCOURAGED TO SIT UP LONG POSSIBLE. GHISLAINE OSMAN, OTR/L
--- NOTE | 2019-06-30 11:40 | NUR ---
Rehab Note- VM received from Paty with [employer] that the patient was denied an inpatient acute rehab stay, but possibly a SNF or Home w/ HH would be approved if needed but did explain that the patient has 7 acute hospital days per agreement with her [employer] benefits that she may be ready for discharge home at that time. VM forwarded to both Jazmyn & EMIL Levi. THank you for this referral! Teri Del Rio RN Clinical Liaison, [facility] Rehab
--- NOTE | 2019-06-30 13:07 | MORECARE ---
CASE MANAGEMENT DISCHARGE SUMMARY PATIENT: OBI LAST UNIT: [id number] ADM DATE: 06/25/19 AGE: 59 : 58 SEX: F ROOM/BED: D.2235 AUTHOR: CHIQUITA ISLAS PHYSICIAN: REFERRING PHYSICIAN: MIC ORR MD DATE OF SERVICE: 06/30/19 Discharge Plan Patient Name: OBI LAST Facility: [facility]:[place] : 1960 Planned Disposition: Inpatient Rehab Anticipated Discharge Date: Discharge Date: Expected LOS: Initial Reviewer: [email or web address] Initial Review Date: 06/28/2019 Generated: 06/30/19 2:07 pm Comments DCP- Discharge Planning Updated by [email or web address]: Amita Guerrier on 06/30/19 12:[address] Patient's insurance has denied inpatient rehab. I attempted to meet with patient to discuss SNF vs Home health and she asks me to come back at a later time. She states she is trying to sleep. CM will continue to follow and assist with discharge planning/needs. DCP- Discharge Planning Updated by [email or web address]: Amita Guerrier on 06/28/19 12:[address] Patient Name: OBI LAST Admission Status: Elective Accout number: [id number] Admission Date: 06-25-2019 : 1960 Admission Diagnosis: Attending: MIC ORR Current LOS: 3 Anticipated DC Date: Planned Disposition: Inpatient Rehab [facility] Discharge Planning Comments: CM met with patient to discuss discharge planning/needs. She states she is tired and to ask questions quickly. I offered to return later and she says "no". She states she lives with her . She states "he helps me with everything." I discussed the availability of inpatient rehab, SNF, home health and DME. She states "I don't know, I just want to go to sleep." I asked if I could order inpatient rehab screen, and she states yes. Rehab prescreen has been ordered as well as OT and PT consults. CM will continue to follow and assist with discharge planning/needs. Employment Specialist: Amita Guerrier DCPIA - Discharge Planning Initial Assessment Updated by [email or web address]: Amita Chey on 06/28/19 1:05 pm * Is the patient Alert and Oriented? Yes * How many steps to enter\\exit or inside your home? 0/0 * PCP Dr. Keane at * Pharmacy [facility] on [address] * Preadmission Environment Home with Family * ADLs Partial Dependent * Partial ADLs (Assistance needed) Ambulation Bathing Dressing Medication Management Toileting Transfers * Equipment Rolling Walker Wheelchair * List name and contact numbers for known caregivers / representatives who currently or will assist patient after discharge: Barrera Last - spouse - [phone] * Verbal permission to speak to the caregivers and representatives has been obtained from the patient. Yes * Community resources currently utilized None * Additional services required to return to the preadmission environment? Yes * Can the patient safely return to the preadmission environment? No * Has this patient been hospitalized within the prior 30 days at any hospital? No Last DP export: 06/28/19 12:12 Patient Name: OBI LAST Page [id number] at 1307 All edits/amendments must be made on the electronic document DICTATION DATE: 06/30/191306 LIFTER/DRIVER: AUTUMN 06/30/191306 RPT#: [id number] DC DATE: STATUS: ADM IN [facility] [address] [place] [address] END OF REPORT
--- NOTE | 2019-06-30 13:43 | NUR ---
NUTRITION F/U CHART REVIEWED, PT VISIT. TOLERATING AHA DIET BUT PO INTAKE REMAINS POOR. PT DOES REPORT THAT HER APPETITE IS IMPROVING. WILL CONTINUE TO PROVIDE DIET, MONITOR PO INTAKE. RD FOLLOWING
--- NOTE | 2019-06-30 13:46 | NUR ---
UNABLE TO PERFORM 6 MINUTE WALK TEST WITH PATIENT. PATIENT UNABLE TO AMBULATE, ONLY ABLE TO TRANSFER FROM BED TO CHAIR OR TO BEDSIDE COMMODE. PHYSICAL THERAPY WORKING WITH PATIENT DAILY.
--- NOTE | 2019-06-30 16:43 | MORECARE ---
CASE MANAGEMENT DISCHARGE SUMMARY PATIENT: OBI LAST UNIT: [id number] ADM DATE: 06/25/19 AGE: 59 : 58 SEX: F ROOM/BED: D.2235 AUTHOR: CHIQUITA ISLAS PHYSICIAN: REFERRING PHYSICIAN: MIC ORR MD DATE OF SERVICE: 06/30/19 Discharge Plan Patient Name: OBI LAST Facility: [facility]:[place] : 1960 Planned Disposition: Inpatient Rehab Anticipated Discharge Date: Discharge Date: Expected LOS: Initial Reviewer: [email or web address] Initial Review Date: 06/28/2019 Generated: 06/30/19 5:43 pm Comments DCP- Discharge Planning Updated by [id number]: Amita Guerrier on 06/30/19 12:[address] Patient's insurance has denied inpatient rehab. I attempted to meet with patient to discuss SNF vs Home health and she asks me to come back at a later time. She states she is trying to sleep. CM will continue to follow and assist with discharge planning/needs. DCP- Discharge Planning Updated by [id number]: Amita Guerrier on 06/28/19 12:[address] Patient Name: OBI LAST Admission Status: Elective Accout number: [id number] Admission Date: 06-25-2019 : 1960 Admission Diagnosis: Attending: MIC ORR Current LOS: 3 Anticipated DC Date: Planned Disposition: Inpatient Rehab [facility] Discharge Planning Comments: CM met with patient to discuss discharge planning/needs. She states she is tired and to ask questions quickly. I offered to return later and she says "no". She states she lives with her . She states "he helps me with everything." I discussed the availability of inpatient rehab, SNF, home health and DME. She states "I don't know, I just want to go to sleep." I asked if I could order inpatient rehab screen, and she states yes. Rehab prescreen has been ordered as well as OT and PT consults. CM will continue to follow and assist with discharge planning/needs. Production Assembly Operator: Amita Guerrier DCPIA - Discharge Planning Initial Assessment Updated by [email or web address]: Amita Chey on 06/28/19 1:05 pm * Is the patient Alert and Oriented? Yes * How many steps to enter\\exit or inside your home? 0/0 * PCP Dr. Keane at [facility] * Pharmacy [facility] on [address] * Preadmission Environment Home with Family * ADLs Partial Dependent * Partial ADLs (Assistance needed) Ambulation Bathing Dressing Medication Management Toileting Transfers * Equipment Rolling Walker Wheelchair * List name and contact numbers for known caregivers / representatives who currently or will assist patient after discharge: Barrera Last - [facility] [place] - [phone] * Verbal permission to speak to the caregivers and representatives has been obtained from the patient. Yes * Community resources currently utilized None * Additional services required to return to the preadmission environment? Yes * Can the patient safely return to the preadmission environment? No * Has this patient been hospitalized within the prior 30 days at any hospital? No External Providers External Provider: Rahel Del Rio Contact Date: Service Request Date: Service Type: Resolution: Reviewer: Comments: Last DP export: 06/30/19 12:07 Patient Name: OBI LAST Page [phone] at 1643 All edits/amendments must be made on the electronic document DICTATION DATE: 06/30/191642 BREAK UP WORKER: AUTUMN 06/30/191642 RPT#: [id number] DC DATE: STATUS: ADM IN [facility] [address] [place] [address] END OF REPORT
--- NOTE | 2019-06-30 16:52 | MORECARE ---
CASE MANAGEMENT DISCHARGE SUMMARY PATIENT: OBI RODRÍGUEZ UNIT: [id number] ADM DATE: 06/25/19 AGE: 59 : 58 SEX: F ROOM/BED: D.2235 AUTHOR: CHIQUITA ISLAS PHYSICIAN: REFERRING PHYSICIAN: MIC ORR MD DATE OF SERVICE: 06/30/19 Discharge Plan Patient Name: OBI RODRÍGUEZ Facility: [facility]:[place] : 1960 Planned Disposition: Inpatient Rehab Anticipated Discharge Date: Discharge Date: Expected LOS: Initial Reviewer: [email or web address] Initial Review Date: 06/28/2019 Generated: 06/30/19 5:51 pm Comments DCP- Discharge Planning Updated by [id number]: Amita Guerrier on 06/30/19 3:[address] OXYGEN SATURATION ON ROOM AIR IS 88% WHICH QUALIFIES HER FOR HOME OXYGEN IF DISCHARGED IN THE NEXT 48 HOURS. [facility] NOTIFIED AND CLINICAL SENT. THEY WILL BRING PORTABLE OXYGEN IN THE EVENT SHE IS DISCHARGED OVER THE WEEKEND. CM WILL CONTINUE TO FOLLOW AND ASSIST WITH DISCHARGE PLANNING/NEEDS. DCP- Discharge Planning Updated by [id number]: Amita Guerrier on 06/30/19 12:[address] Patient's insurance has denied inpatient rehab. I attempted to meet with patient to discuss SNF vs Home health and she asks me to come back at a later time. She states she is trying to sleep. CM will continue to follow and assist with discharge planning/needs. DCP- Discharge Planning Updated by [id number]: Amita Guerrier on 06/28/19 12:[address] Patient Name: OBI RODRÍGUEZ Admission Status: Elective Accout number: [id number] Admission Date: 06-25-2019 : 1960 Admission Diagnosis: Attending: MIC ORR Current LOS: 3 Anticipated DC Date: Planned Disposition: Inpatient Rehab [facility] Discharge Planning Comments: CM met with patient to discuss discharge planning/needs. She states she is tired and to ask questions quickly. I offered to return later and she says "no". She states she lives with her . She states "he helps me with everything." I discussed the availability of inpatient rehab, SNF, home health and DME. She states "I don't know, I just want to go to sleep." I asked if I could order inpatient rehab screen, and she states yes. Rehab prescreen has been ordered as well as OT and PT consults. CM will continue to follow and assist with discharge planning/needs. Information Security: Amita Guerrier DCPIA - Discharge Planning Initial Assessment Updated by [id number]: Amita Guerrier on 06/28/19 1:05 pm * Is the patient Alert and Oriented? Yes * How many steps to enter\\exit or inside your home? 0/0 * PCP Dr. Keane at [facility] * Pharmacy [facility] on [address] * Preadmission Environment Home with Family * ADLs Partial Dependent * Partial ADLs (Assistance needed) Ambulation Bathing Dressing Medication Management Toileting Transfers * Equipment Rolling Walker Wheelchair * List name and contact numbers for known caregivers / representatives who currently or will assist patient after discharge: Barrera Berhane - [facility] - [phone] * Verbal permission to speak to the caregivers and representatives has been obtained from the patient. Yes * Community resources currently utilized None * Additional services required to return to the preadmission environment? Yes * Can the patient safely return to the preadmission environment? No * Has this patient been hospitalized within the prior 30 days at any hospital? No Coverage Notice Reviewer: [id number] - Amita Chey Notice Issued Date-Time: 06/30/2019 16:46 Notice Type: Patient Choice Letter Notice Delivered To: Patient Relationship to Patient: Self Scoreboard Operator Name: Delivery Method: HAND - Hand Delivered Kayce Days: Prior Verbal Notification: Recipient Understood Notice: Yes Recipient Signature: Yes Med Rec Note Co-signed by Attending: Coverage Notice Comment: POLINA FOR CARIDAD Cabrera DP export: 06/30/19 3:43 Patient Name: OBI RODRÍGUEZ Page [phone] at 1652 All edits/amendments must be made on the electronic document DICTATION DATE: 06/30/191650 SNACK BAR ATTENDANT: AUTUMN 06/30/191650 RPT#: [id number] DC DATE: STATUS: ADM IN [facility] [address] [place] [address] END OF REPORT
--- NOTE | 2019-06-30 16:56 | NUR ---
I have reviewed this patient and I concur with the Shift Assessment completed by the Licensed Practical Nurse today this shift.
[2019-06-30 17:07] VITALS: BP 158/78
--- NOTE | 2019-06-30 17:08 | MORECARE ---
CASE MANAGEMENT DISCHARGE SUMMARY PATIENT: OBI LAST UNIT: [id number] ADM DATE: 06/25/19 AGE: 59 : 58 SEX: F ROOM/BED: D.2235 AUTHOR: CHIQUITA ISLAS PHYSICIAN: REFERRING PHYSICIAN: MIC ORR MD DATE OF SERVICE: 06/30/19 Discharge Plan Patient Name: OBI LAST Facility: [facility]:[place] : 1960 Planned Disposition: Inpatient Rehab Anticipated Discharge Date: Discharge Date: Expected LOS: Initial Reviewer: [email or web address] Initial Review Date: 06/28/2019 Generated: 06/30/19 6:08 pm Comments DCP- Discharge Planning Updated by [email or web address]: Amita Ayalahali on 06/30/19 4:[address] I ALSO SPOKE TO THE PATIENT AND INFORMED THAT INSURANCE HAD DENIED INPATIENT REHAB. I DISCUSSED THE AVAILABILITY OF SNF AND HOME HEALTH AND SHE DECLINES BOTH AT THIS TIME. SHE STATES MY AND MY DAUGHTER TAKE CARE OF ME. CM WILL CONTINUE TO FOLLOW AND ASSIST WITH DISCHARGE PLANNING/NEEDS. DCP- Discharge Planning Updated by [id number]: Amita Guerrier on 06/30/19 3:[address] OXYGEN SATURATION ON ROOM AIR IS 88% WHICH QUALIFIES HER FOR HOME OXYGEN IF DISCHARGED IN THE NEXT 48 HOURS. [facility] NOTIFIED AND CLINICAL SENT. THEY WILL BRING PORTABLE OXYGEN IN THE EVENT SHE IS DISCHARGED OVER THE WEEKEND. CM WILL CONTINUE TO FOLLOW AND ASSIST WITH DISCHARGE PLANNING/NEEDS. DCP- Discharge Planning Updated by [id number]: Amita Chey on 06/30/19 12:[address] Patient's insurance has denied inpatient rehab. I attempted to meet with patient to discuss SNF vs Home health and she asks me to come back at a later time. She states she is trying to sleep. CM will continue to follow and assist with discharge planning/needs. DCP- Discharge Planning Updated by [id number]: Amita Ayalahali on 06/28/19 12:[address] Patient Name: OBI LAST Admission Status: Elective Accout number: [id number] Admission Date: 06-25-2019 : 1960 Admission Diagnosis: Attending: MIC ORR Current LOS: 3 Anticipated DC Date: Planned Disposition: Inpatient Rehab [facility] Discharge Planning Comments: CM met with patient to discuss discharge planning/needs. She states she is tired and to ask questions quickly. I offered to return later and she says "no". She states she lives with her . She states "he helps me with everything." I discussed the availability of inpatient rehab, SNF, home health and DME. She states "I don't know, I just want to go to sleep." I asked if I could order inpatient rehab screen, and she states yes. Rehab prescreen has been ordered as well as OT and PT consults. CM will continue to follow and assist with discharge planning/needs. College Specialist: Amita Guerrier DCPIA - Discharge Planning Initial Assessment Updated by [id number]: Amita Guerrier on 06/28/19 1:05 pm * Is the patient Alert and Oriented? Yes * How many steps to enter\\exit or inside your home? 0/0 * PCP Dr. Keane at [facility] * Pharmacy [facility] on [address] * Preadmission Environment Home with Family * ADLs Partial Dependent * Partial ADLs (Assistance needed) Ambulation Bathing Dressing Medication Management Toileting Transfers * Equipment Rolling Walker Wheelchair * List name and contact numbers for known caregivers / representatives who currently or will assist patient after discharge: Barrera Last - spouse - [phone] * Verbal permission to speak to the caregivers and representatives has been obtained from the patient. Yes * Community resources currently utilized None * Additional services required to return to the preadmission environment? Yes * Can the patient safely return to the preadmission environment? No * Has this patient been hospitalized within the prior 30 days at any hospital? No Coverage Notice Reviewer: [id number] - Amita Guerrier Notice Issued Date-Time: 06/30/2019 16:46 Notice Type: Patient Choice Letter Notice Delivered To: Patient Relationship to Patient: Self Block Breaker Name: Delivery Method: HAND - Hand Delivered Kayce Days: Prior Verbal Notification: Recipient Understood Notice: Yes Recipient Signature: Yes Med Rec Note Co-signed by Attending: Coverage Notice Comment: POLINA FOR CARIDAD Cabrera DP export: 06/30/19 3:52 Patient Name: OBI LAST Page [phone] at 1708 All edits/amendments must be made on the electronic document DICTATION DATE: 06/30/191707 DOCTOR OF MEDICINE: AUTUMN 06/30/191707 RPT#: [id number] DC DATE: STATUS: ADM IN [facility] [address] [place] [address] END OF REPORT
--- NOTE | 2019-06-30 18:54 | NUR ---
ALERT AND ORIENTED, RESTING IN BED. NO C/O PAIN. NO S/S OF ACUTE DISTRESS NOTED. DENIES ANY NEEDS AT THIS TIME. CALL LIGHT IN REACH.
[2019-06-30 20:00] VITALS: BP 140/81
--- NOTE | 2019-06-30 20:00 | NUR ---
A/O WITH NO SIGNS OF DISTRESS. COMPLAINING OF BURNING AND LEAKING AT IV SITE IN THE LT WRIST. D/C IV WITH CATH INTACT. RESITED IV TO THE RT FOREARM. NC @3L AND LEONOR WRAP TO HANSEL FEET WTIH SOME SWELLING NOTED. REMOVED LEONOR WRAP PER PT REQUEST. HELD AMBIEN DUE TO PT AND STAFF STATING THAT MEDICATION HAS ADVERSE EFFECTS. DENIES NO OTHER NEEDS AT THIS TIME. CONTINUE PLAN OF CARE.
[2019-07-01 04:00] VITALS: BP 137/56
[2019-07-01 06:15] LABS: BASOPHILS 0.2 % (0-2); HEMATOCRIT 33.5 % (36.0-48.0); HEMOGLOBIN 10.7 g/dL (12-16); IMMATURE GRANULOCYTES 0.5 % (0-5); LYMPHOCYTES 19.8 % (15-50); MCH 33.1 pg (26.0-34.0); MCHC 31.9 g/dL (31.0-37.0); MCV 103.7 fL (80.0-100.0); MEAN PLATELET VOLUME 11.5 fL (7.4-10.4); MONOCYTES 11.1 % (2-11); NEUTROPHILS 66.4 % (40-80); PLATELET COUNT 147 10x3/uL (130-400); RBC 3.23 10x6/uL (4.00-5.40); RDW 13.2 % (11.5-14.5); WBC 4.4 10x3/uL (4.8-10.8)
[2019-07-01 06:53] LABS: ALBUMIN 2.3 g/dL (3.4-5.0); ANION GAP 10.4 mmol/L (8-16); BILIRUBIN - TOTAL 0.46 mg/dL (0.2-1.3); CALCIUM 9.1 mg/dL (8.5-10.1); CARBON DIOXIDE 27.5 mmol/L (21.0-32.0); POTASSIUM - SERUM 3.9 mmol/L (3.5-5.1); PROTEIN - SERUM 7.4 g/dL (6.4-8.2)
--- NOTE | 2019-07-01 08:00 | NUR ---
ALERT AND ORIENTED X4. 3+ EDEMA NOTED TO BLE WITH PEDAL PULSES NOTED WITH NO WARMTH NOTED ON PALPATION. GOOD ROM NOTED ADN ENCOURAGED TO AMBULATE TO INCREASE CIRCULATION. ACEWRAPS APPLIED PRIOR TO GETTING UP. LUNGS DIMINISHED TO BLQ POSTERIOR. ENCOURAGED OT USE CALL LIGHT FOR ASSSIT.
[2019-07-01 08:08] VITALS: BP 157/73
[2019-07-01 13:32] VITALS: BP 139/85
[2019-07-01 14:21] VITALS: BP 139/85
[2019-07-01 16:30] VITALS: BP 166/94
[2019-07-01 20:00] VITALS: BP 132/78
--- NOTE | 2019-07-01 23:56 | NUR ---
PT C/O NAUSEA. GAVE ZOFRAN 4 MG IV PUSH. ASSISTED PT UP TO BEDSIDE COMMODE. PT HAD DIFFICULTY EVACUATING HARD STOOL. ASSISTED BY DIGITALLY REMOVING SOME OF THE STOOL. PT WAS ABLE TO FINISH HAVING BM. NO OTHER NEEDS. WILL CONTINUE TO MONITOR.
[2019-07-02] VITALS: BP 102/75
--- NOTE | 2019-07-02 01:30 | NUR ---
RIGHT WRIST IV LEAKING AND BLEEDING. REMOVED CATHETER INTACT. PT REFUSED TO HAVE RESITED AT THIS TIME. STATES SHE WANTS TO "GIVE IT A REST FOR A WHILE". LEFT IV OUT FOR NOW PER PT REQUEST.
[2019-07-02 04:00] VITALS: BP 158/84
[2019-07-02 07:04] LABS: BASOPHILS 0.5 % (0-2); EOSINOPHILS 2.4 % (0-7); HEMATOCRIT 33.3 % (36.0-48.0); HEMOGLOBIN 10.6 g/dL (12-16); IMMATURE GRANULOCYTES 0.5 % (0-5); LYMPHOCYTES 18.7 % (15-50); MCH 32.9 pg (26.0-34.0); MCHC 31.8 g/dL (31.0-37.0); MCV 103.4 fL (80.0-100.0); MEAN PLATELET VOLUME 11.1 fL (7.4-10.4); MONOCYTES 12.2 % (2-11); NEUTROPHILS 65.7 % (40-80); PLATELET COUNT 155 10x3/uL (130-400); RBC 3.22 10x6/uL (4.00-5.40); RDW 13.4 % (11.5-14.5); WBC 4.1 10x3/uL (4.8-10.8)
[2019-07-02 07:16] LABS: ANION GAP 8.5 mmol/L (8-16); CALCIUM 9.2 mg/dL (8.5-10.1); CARBON DIOXIDE 29.2 mmol/L (21.0-32.0); POTASSIUM - SERUM 3.7 mmol/L (3.5-5.1)
[2019-07-02 08:25] VITALS: BP 144/88
--- NOTE | 2019-07-02 09:00 | NUR ---
ALERT AND ORIENTED X4 WITH EDEMA 2+ NOTED TO BLE. EXPIRATORY WHEEZES NOTED TO BLQ POSTERIOR WITH O2 3L N/C. ENCOURAGED TO SIT UP IN SEMIFOWLER POSTIONDN USE INCENTIVE SPOROMETER.TONY ANY PAIN OR DISCOMFRT AT THIS TIME TEMEMTRY INTACT. ACEWRAPS APPLIED TO BLE PRIOR TO GETTING OOB. ENCOURAGED TO USE CALL LIGHT FOR ASSSIT
[2019-07-02 12:07] VITALS: BP 143/71
[2019-07-02 16:56] VITALS: BP 146/90
[2019-07-02 20:00] VITALS: BP 145/95
[2019-07-03] VITALS (17 sets, daily range): BP systolic 97–163; BP diastolic 56–95
--- NOTE | 2019-07-03 04:19 | NUR ---
PT C/O BACK AND FOOT PAIN 04/15. GAVE DILAUDID 1MG IV PUSH. ASSISTED PT TO BEDSIDE COMMODE TO VOID AND BACK TO BED. NO OTHER NEEDS. WILL CONTINUE TO MONITOR.
[2019-07-03 06:29] LABS: BASOPHILS 0.2 % (0-2); EOSINOPHILS 2.2 % (0-7); HEMOGLOBIN 11.4 g/dL (12-16); IMMATURE GRANULOCYTES 0.5 % (0-5); LYMPHOCYTES 15.8 % (15-50); MCH 32.7 pg (26.0-34.0); MCHC 30.8 g/dL (31.0-37.0); MONOCYTES 12.5 % (2-11); NEUTROPHILS 68.8 % (40-80); RBC 3.49 10x6/uL (4.00-5.40); RDW 13.8 % (11.5-14.5)
[2019-07-03 06:33] LABS: PLATELET COUNT 283 10x3/uL (130-400)
[2019-07-03 06:39] LABS: CALCIUM 9.2 mg/dL (8.5-10.1); CARBON DIOXIDE 28.9 mmol/L (21.0-32.0); CREATININE - SERUM 1.1 mg/dL (0.6-1.3)
[2019-07-03 06:43] LABS: POTASSIUM - SERUM 4.9 mmol/L (3.5-5.1)
--- NOTE | 2019-07-03 07:35 | NUR ---
CALLED TO ROOM PATIENT NON RESPONSIVE AND SKIN DUSKY BLUE. RAPID RESPONCE CALLED, SEE RAPID SHEET.
--- NOTE | 2019-07-03 07:45 | NUR ---
PAGE TO FILLING MACHINE TENDER TO INFORM OF RAPID RESPONCE
--- NOTE | 2019-07-03 07:55 | NUR ---
ANUP DUMONT RN CALLED REPORT TO ICU.PT IS BEING MOVED TO ICU.FAMILY CALLED PONCHO,[phone]
--- NOTE | 2019-07-03 08:26 | NUR ---
CALL BACK FROM . CALL TRANSFERRED TO ICU
--- NOTE | 2019-07-03 09:00 | NUR ---
REC'D PT FROM FLOOR AFTER RAPID RESPONSE WAS CALLED, PT ASSISTED INTO ICU BED, MONITORS ON AND WORKING, PT AWAKE AND ALERT AT THIS TIME, PT PLACED ON BIPAP AT 100% AT THIS TIME. WILL CONTINUE TO OBSERVE.
--- NOTE | 2019-07-03 09:10 | NUR ---
SILVER COLORED RING WITH CLEAR STONE, SILVER COLORED RING AND SILVER COLORED NECKLACE GIVEN TO PATENT
--- NOTE | 2019-07-03 09:27 | NUR ---
Nutrition follow-up: Pt now in ICU 2/ code blue Diet: low sodium PO intake 50-75% of meals Labs reviewed BIPAP in place RDN following.
[2019-07-03 10:37] LABS: INR 1.22 (0.85-1.17); PROTIME 14.9 SECONDS (11.6-15.0)
[2019-07-03 10:38] LABS: APTT 33.8 SECONDS (22.8-39.4)
--- NOTE | 2019-07-03 11:00 | NUR ---
PT RESTING IN BED, MONITORS ON AND WORKING, VITALS STABLE, PT AWAKE AND ALERT, NO SIGNS/SYMPTOMS OF PAIN OR DISCOMFORT NOTED AT THIS TIME, FAMILY AT BEDSIDE, UPDATE PROVIDED, NO SIGNS/SYMPTOMS OF PAIN OR DISCOMFORT NOTED. CALL LIGHT WITHIN REACH, SEE FLOW SHEET FOR FURTHER DETAILS. WILL CONTINUE TO OBSERVE.
[2019-07-03 11:14] LABS: ERYTHROCYTE SEDIMENTATION RATE 80 mm/hr (0-30)
--- NOTE | 2019-07-03 13:00 | NUR ---
PT ON NC, TOLERATING WELL. PT MUCH MORE AWAKE AND ALERT, PT DENIES ANY COMPLAINT OF PAIN OR DISCOMFORT NOTED AT THIS TIME. FAMILY AT BEDSIDE, UPDATE PROVIDED. CALL LIGHT WITHIN REACH, WILL CONTINUE TO OBSERVE.
--- NOTE | 2019-07-03 15:00 | NUR ---
NO CHANGES, PT CHANGED AND REPOSITIONED FOR COMFORT, NO SIGNS/SYMPTOMS OF PAIN OR DISCOMFORT NOTED. SEE FLOW SHEET FOR FURTHER DETAILS. WILL CONTINUE TO OBSERVE.
--- NOTE | 2019-07-03 17:00 | NUR ---
PT SITTING UP IN BED EATING DINNER, MONITORS ON AND WORKING, VITALS STABLE, FAMILY AT BEDSIDE, UPDATE PROVIDED, NO SIGNS/SYMPTOMS OF PAIN OR DISCOMFORT NOTED AT THIS TIME, CALL LIGHT WITHIN REACH WILL CONTINUE TO OBSERVE.
--- NOTE | 2019-07-03 19:00 | NUR ---
PT ASSESSMENT COMPLETED AT THIS TIME, NO CHANGES FROM NURSING REPORT, VSS
--- NOTE | 2019-07-03 21:00 | NUR ---
PT GIVEN PO MED NO PROBLEMS NOTED, VSS, WILL MONITOR FOR CHANGES
--- NOTE | 2019-07-03 23:00 | NUR ---
PT REASSESSMENT COMPLETED AT THIS TIME, NO CHANGES NOTED, VSS, WILL MONITOR FOR CHANGES
[2019-07-04] VITALS (28 sets, daily range): BP systolic 104–148; BP diastolic 53–98
[2019-07-04 05:18] LABS: CALCIUM 9.2 mg/dL (8.5-10.1); CARBON DIOXIDE 33.4 mmol/L (21.0-32.0); CHLORIDE - SERUM 102 mmol/L (98-107); GLUCOSE 132 mg/dL (74-106); MAGNESIUM - SERUM 1.5 mg/dL (1.8-2.4); PHOSPHOROUS 3.4 mg/dL (2.5-4.9); PRO BNP 10673 pg/mL (0-125); SODIUM 141 mmol/L (136-145)
[2019-07-04 05:19] LABS: HEMATOCRIT 34.4 % (36.0-48.0); HEMOGLOBIN 10.9 g/dL (12-16); MCH 32.3 pg (26.0-34.0); MCHC 31.7 g/dL (31.0-37.0); MEAN PLATELET VOLUME 11.4 fL (7.4-10.4); RBC 3.37 10x6/uL (4.00-5.40); RDW 13.4 % (11.5-14.5); WBC 8.3 10x3/uL (4.8-10.8)
[2019-07-04 05:21] LABS: MCV 102.1 fL (80.0-100.0); PLATELET COUNT 190 10x3/uL (130-400)
[2019-07-04 05:25] LABS: CALC OSMOLALITY 284 mosm/kg (275-300); CREATININE - SERUM 1.5 mg/dL (0.6-1.3); POTASSIUM - SERUM 3.6 mmol/L (3.5-5.1); TROPONIN-I < 0.017 ng/mL (0.000-0.060); UREA NITROGEN 17 mg/dL (7-18); eGFR NON AFRICAN AMERICAN 37 mL/min (90-120)
[2019-07-04 06:30] LABS: EOSINOPHILS 1 % (0-7); LYMPHOCYTES 8 % (15-50); MONOCYTES 3 % (2-11); NEUTROPHILS 87 % (40-80); PLATELET ESTIMATE NORMAL
--- NOTE | 2019-07-04 06:31 | NUR ---
0100 PT RESTING WITH EYES CLOSED, RESP EVEN NON LABORED, VSS 0300 PT REASSESSMENT COMPLETED AT THIS TIME, NO CHANGES NOTED 0500 PT I&O COMPLETED, PT GIVEN HCG BATH WITH LINEN CHANGED
--- NOTE | 2019-07-04 07:00 | NUR ---
BEDSIDE REPORT RECEIVED. ASSESSMENT COMPLETED PER FLOWSHEET, SEE FLOWSHEET FOR INFORMATION. PT STATED "I'M WORRIED ABOUT THIS SURGERY, I'VE HAD SO MANY SURGERIES I'M TIRED OF THEM." REASSURED PT. PT IN BED WATCHING TV WITH BIPAP ON, NO NEEDS AT THIS TIME. VSS. WILL CONT TO MONITOR.
--- NOTE | 2019-07-04 09:00 | NUR ---
0900 MEDICATIONS GIVEN. PT C/O BACK PAIN AND ASKS FOR TYLENOL, TYLENOL GIVEN PER EMAR. VSS. WILL CONT TO MONITOR.
--- NOTE | 2019-07-04 09:50 | NUR ---
AT BEDSIDE. NEW ORDERS. VSS. WILL CONT TO MONITOR.
--- NOTE | 2019-07-04 10:52 | NUR ---
AT BEDSIDE. NEW ORDERS. VSS. WILL CONT TO MONITOR.
--- NOTE | 2019-07-04 11:00 | NUR ---
PT IN BED RESTING WITH EYES CLOSED. RT AT BEDSIDE. NO NEEDS OR DISTRESS NOTED AT THIS TIME. VSS. WILL CONT TO MONITOR.
--- NOTE | 2019-07-04 12:00 | NUR ---
PROCEDING ON WITH SURGERY. SPOKE WITH SPECS AGAIN. SPOKE WITH PT AND GAVE HER A PHONE IN ROOM TO CALL HER . VSS. NO NEEDS OR DISTRESS NOTED AT THIS TIME. WILL CONT TO MONITOR.
--- NOTE | 2019-07-04 13:00 | NUR ---
ADJUSTED EXTERNAL CATHETER, CATHETER WAS NOT IN CORRECT PLACEMENT. CHANGED LINEN AND CLEANED PT. NO NEEDS OR DISTRESS NOTED AT THIS TIME. VSS. WILL CONT TO MONITOR.
--- NOTE | 2019-07-04 15:00 | NUR ---
REASSESSMENT COMPLETED PER FLOWSHEET. VSS. WILL CONT TO MONITOR.
--- NOTE | 2019-07-04 15:11 | NUR ---
PREOP AT BEDSIDE, DID NOT GET CALL FROM PREOP. PREOP MEDICATIONS GIVEN NOW.
--- NOTE | 2019-07-04 15:12 | NUR ---
PT TAKEN TO OR BY STAFF.
--- NOTE | 2019-07-04 16:19 | NUR ---
PT RETURNED FROM OR VIA BED ESCORTED BY STAFF WITH A SMALL DRESSING TO THE RIGHT LOWER HIP. VSS. NO NEEDS OR DISTRESS NOTED AT THIS TIME. WILL CONT TO MONITOR.
--- NOTE | 2019-07-04 16:49 | NUR ---
OT NOTE: PT COMPLETED BED MOB TASKS WITH MIN/MOD A. PT COMPLETED SIT TO STAND WITH MIN A. PT COMPLETED BED TO BSC TSF WITH CGA. PT COMPLETED HYGIENE TASKS WITH MOD A SECONDARY TO INSUFFICIENT UE ROM. THANK YOU, TANIA VAZQUEZ
--- NOTE | 2019-07-04 17:00 | NUR ---
PT SITTING UP IN BED REQUESTING FOOD. ST COMPLETED SWALLOW STUDY, PT REQUESTING FOOD. SANDWICH GIVEN. NO NEEDS OR DISTRESS NOTED AT THIS TIME. VSS. WILL CONT TO MONITOR.
--- NOTE | 2019-07-04 19:00 | NUR ---
BEDSIDE REPORT AND SHIFT ASSESSMENT COMPLETE. VSS, NO SIGNS OF ACUTE DISTRESS NOTED. PT CONFUSED, UNABLE TO SAY WHAT DAY OR TIME IT IS. L HAND PIV WNL, ABX INFUSING. CALL LIGHT IN REACH, WILL CONTINUE TO MONITOR.
--- NOTE | 2019-07-04 21:00 | NUR ---
CHG BATH AND LINEN CHANGE COMPLETE. VSS, NO SIGNS OF ACUTE DISTRESS NOTED. MEDS GIVEN PER NOV. PT REQUESTING CHIPS, WILL CHECK DIET AND GIVE SNACK. CALL LIGHT IN REACH, WILL MONITOR.
--- NOTE | 2019-07-04 23:00 | NUR ---
REASSESSMENT COMPLETE, SEE FLOWSHEET. VSS, NO SIGNS OF ACUTE DISTRESS NOTED. PT REQUESTING BLANKET, DENIES OTHER NEEDS. CALL LIGHT IN REACH.
[2019-07-05] VITALS (13 sets, daily range): BP systolic 135–158; BP diastolic 68–101
--- NOTE | 2019-07-05 01:00 | NUR ---
PT SLEEPING. VSS, NO SIGNS OF ACUTE DISTRESS NOTED. CALL LIGHT IN REACH, WILL CONTINUE TO MONITOR.
--- NOTE | 2019-07-05 03:00 | NUR ---
REASSESSMENT COMPLETE, SEE FLOWSHEET. PT KEEPS PULLING BIPAP OFF FACE AND STATES "I DON'T KNOW WHAT HAPPENED I AM JUST LAYING HERE" WHEN I COME IN THE ROOM TO PUT IT BACK ON. I ASKED HER TO TELL ME WHERE SHE IS AND SHE WAS UNABLE. CONFUSION NOTED. CALL LIGHT IN REACH, WILL CONTINUE TO MONITOR.
[2019-07-05 04:32] LABS: BASOPHILS 0.1 % (0-2); EOSINOPHILS 0 % (0-7); HEMATOCRIT 34.2 % (36.0-48.0); HEMOGLOBIN 10.9 g/dL (12-16); IMMATURE GRANULOCYTES 0.5 % (0-5); LYMPHOCYTES 7.1 % (15-50); MCH 32.2 pg (26.0-34.0); MCHC 31.9 g/dL (31.0-37.0); MCV 100.9 fL (80.0-100.0); MEAN PLATELET VOLUME 11.6 fL (7.4-10.4); MONOCYTES 2.7 % (2-11); NEUTROPHILS 89.6 % (40-80); PLATELET COUNT 219 10x3/uL (130-400); RBC 3.39 10x6/uL (4.00-5.40); RDW 13.4 % (11.5-14.5); WBC 8.1 10x3/uL (4.8-10.8)
--- NOTE | 2019-07-05 05:00 | NUR ---
MEDS GIVEN PER MAR. SWARTZ AT BEDSIDE TO DRAW AM LABS. CALL LIGHT IN REACH, WILL MONITOR.
[2019-07-05 05:50] LABS: ANION GAP 10.2 mmol/L (8-16); CALCIUM 8.7 mg/dL (8.5-10.1); CARBON DIOXIDE 31.9 mmol/L (21.0-32.0); CREATININE - SERUM 1.4 mg/dL (0.6-1.3); PHOSPHOROUS 3.4 mg/dL (2.5-4.9); POTASSIUM - SERUM 3.1 mmol/L (3.5-5.1)
[2019-07-05 05:51] LABS: MAGNESIUM - SERUM 1.9 mg/dL (1.8-2.4)
--- NOTE | 2019-07-05 07:20 | NUR ---
PT RESTING IN BED, SHIFT ASSESSMENT PERFORMED. VSS AND WNL. DENIES ANY NEEDS AT THIS TIME, WILL CONT TO FOLLOW POC
--- NOTE | 2019-07-05 08:00 | NUR ---
PT SITTING UP IN CHAIR AT BEDSIDE EATING BREAKFAST. DENIES ANY CURRENT NEEDS AT THIS TIME, WILL CONT TO FOLLOW POC
--- NOTE | 2019-07-05 08:30 | NUR ---
ASSISTED PT TO BEDSIDE COMMODE AND BACK INTO CHAIR. DENIES ANY NEEDS AT THIS TIME, WILL CONT TO FOLLOW POC
--- NOTE | 2019-07-05 09:00 | NUR ---
PT SITTING IN CHAIR AT BEDSIDE, FAMILY PRESENT. DENIES ANY NEEDS AT THIS TIME, CALL LIGHT WITHIN REACH, WILL CONT TO FOLLOW POC
--- NOTE | 2019-07-05 11:30 | NUR ---
PT SITTING IN CHAIR AT BEDSIDE. TRAY SET UP PROVIDED, DENIES ANY NEEDS AT THIS TIME, WILL CONT TO FOLLOW POC
--- NOTE | 2019-07-05 12:06 | NUR ---
OT NOTE: PT DOING MUCH BETTER. STATES THAT SHE REALLY WANTS TO GO HOME. PT UP IN CHAIR. SET UP WITH GROOMING TASKS AND MIN ASSIST WITH SOCKS; CGA FOR TOILET TRANSFER AND MOD ASSIST WITH HYGIENE. PERFORMED SIT TO STAND WITH MIN ASSIST; AMBU GREATER THAN 150 FT WITH USE OF WALKER, MIN ASSIST, AND ASSIST WITH 02. PT FATIGUED FOLLOWING AMBULATION, HOWEVER, 02 SATS WERE GOOD AT 99%; HEART RATE WAS 89, AND BP WAS 138/91. PT WAS IN GOOD HUMOR AND HAS TOLERATED SITTING UP IN CHAIR ALL MORNING. GHISLAINE OSMAN, OTR/L
--- NOTE | 2019-07-05 12:59 | NUR ---
Nutrition follow-up: Diet: Regular as tolerated Pt ate 75% of lunch today Labs reviewed Wt: 240# RDN following.
--- NOTE | 2019-07-05 16:30 | NUR ---
RCVED PT VIA WHEELCHAIR AND ICU STAFF. PT IS ALERT AND ORIENTED WITH NO S/S OF DISTRESS NOTED AT THIS TIME. IV LOCATED TO LEFT WRIST CURRENTLY SL. CURRENTLY RCVING 3L VIA NC. LEONOR WRAPS AND SCDS APPLIED TO BOTH LOWER EXT. V/S STABLE. DENIES NEEDS AT THIS TIME, WILL CONT TO MONITOR.
--- NOTE | 2019-07-05 20:00 | NUR ---
ASSESSMENT SSPER FLOWSHEET. IV PATENT LEFT WRIST SALINE LOCKED. O2 ON 3L/M PER NC. NO RESP. DISTRESS.TELM. SHOWS CAF HR 92. SMALL DRSG TO LOWER BACK BX SITE C/D/I. REQUESTING SCD'S BE REMOVED. WRAPS TO BOTH LEGS REMOVED.
--- NOTE | 2019-07-05 21:00 | NUR ---
MEDS PER MAR.
[2019-07-06] VITALS: BP 136/56
--- NOTE | 2019-07-06 03:41 | NUR ---
EYES CLOSED RESPIRATIONS WITH EASE AND UNLABORED. PT HAS BEEN USING BSC TO URINATE.
[2019-07-06 04:00] VITALS: BP 140/60
[2019-07-06 06:34] LABS: BASOPHILS 0 % (0-2); EOSINOPHILS 0 % (0-7); HEMATOCRIT 33.5 % (36.0-48.0); HEMOGLOBIN 10.8 g/dL (12-16); IMMATURE GRANULOCYTES 0.6 % (0-5); LYMPHOCYTES 7.5 % (15-50); MCH 32.6 pg (26.0-34.0); MCHC 32.2 g/dL (31.0-37.0); MCV 101.2 fL (80.0-100.0); MEAN PLATELET VOLUME 11.3 fL (7.4-10.4); MONOCYTES 3.4 % (2-11); NEUTROPHILS 88.5 % (40-80); PLATELET COUNT 205 10x3/uL (130-400); RBC 3.31 10x6/uL (4.00-5.40); RDW 13.5 % (11.5-14.5); WBC 6.8 10x3/uL (4.8-10.8)
[2019-07-06 07:23] LABS: ANION GAP 14.4 mmol/L (8-16); CALCIUM 8.7 mg/dL (8.5-10.1); CARBON DIOXIDE 29.2 mmol/L (21.0-32.0); CREATININE - SERUM 1.4 mg/dL (0.6-1.3); POTASSIUM - SERUM 3.6 mmol/L (3.5-5.1)
--- NOTE | 2019-07-06 07:35 | NUR ---
PT RESTING. RR EVEN AND UNLABORED. SLIGHT EDEMA NOTED TO BILATERAL LOWER EXTREMITIES. PT STATES SWELLING IS BETTER THAN IT HAS BEEN. ON 3L NC. DENIES NEEDS OR PAIN AT THIS TIME. BED IN LOWEST POSITION. CALLL LIGHT WITHIN REACH. WILL CONTINUE TO MONITOR.
[2019-07-06 08:24] VITALS: BP 171/96
--- NOTE | 2019-07-06 11:45 | NUR ---
STANDBY ASSISTANCE FOR PT ON BEDSIDE COMMODE. VOID X1
[2019-07-06 11:51] VITALS: BP 155/96
--- NOTE | 2019-07-06 14:27 | NUR ---
OT NOTE: PT DOING MUCH BETTER. IN ROOM AMBULATION WITH WALKER AND CGA. TOILET TRANSFERS AND FUNCTIONAL TRANSFERS TO CHAIR AND BED WITH CGA. TOILETING AND GROOMING WITH SBA. STATES THAT SHE FEELS MUCH BETTER AND IS READY TO GO HOME. GHISLAINE OSMAN, OTR/L
[2019-07-06 16:29] VITALS: BP 157/98
[2019-07-06 21:27] VITALS: BP 140/85
--- NOTE | 2019-07-06 23:04 | NUR ---
A/O WITH NO SIGNS OF DISTRESS. IV TO THE LT WRIST WITH NO REDNESS OR SWELLING. WAS ABLE TO GIVE IV BUMEX BEFORE IV STARTED TO LEAK AND PT VERBALIZING BURNING ON INFUSION. DC IV WITH CATH INTACT. 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 WILL PASS ON IN REPORT ABOUT SITUATION AND PUT IN A VASULAR ACCESS CONSULT. NC AT 3L AND SWELLING NOTED TO THE HANSEL FEET. DRESSING NOTED TO THE BACK INTACT. DENIES NO OTHER NEEDS AT THIS TIME. CONTINUE PLAN OF CARE.
[2019-07-07 00:42] VITALS: BP 128/72
[2019-07-07 05:26] VITALS: BP 151/80
[2019-07-07 06:25] LABS: BASOPHILS 0 % (0-2); EOSINOPHILS 0.2 % (0-7); HEMATOCRIT 33.2 % (36.0-48.0); HEMOGLOBIN 10.8 g/dL (12-16); IMMATURE GRANULOCYTES 1.7 % (0-5); LYMPHOCYTES 6.6 % (15-50); MCH 32.8 pg (26.0-34.0); MCHC 32.5 g/dL (31.0-37.0); MCV 100.9 fL (80.0-100.0); MEAN PLATELET VOLUME 10.7 fL (7.4-10.4); MONOCYTES 5.6 % (2-11); NEUTROPHILS 85.9 % (40-80); PLATELET COUNT 203 10x3/uL (130-400); RBC 3.29 10x6/uL (4.00-5.40); RDW 13.4 % (11.5-14.5); WBC 6.1 10x3/uL (4.8-10.8)
[2019-07-07 06:36] LABS: ANION GAP 7.2 mmol/L (8-16); CALCIUM 8.4 mg/dL (8.5-10.1); CARBON DIOXIDE 35.2 mmol/L (21.0-32.0); CREATININE - SERUM 1.3 mg/dL (0.6-1.3); POTASSIUM - SERUM 3.4 mmol/L (3.5-5.1)
[2019-07-07 08:34] VITALS: BP 175/93
--- NOTE | 2019-07-07 10:18 | NUR ---
OT NOTE: PT SITTING UP ON EOB. REPORTED INCREASED BACK PAIN WHEN MOVING FROM TABLE AFTER PROCEDURE(MRI OR CT?)...PT WANTED TO AMBULATE. PERFORMED IN ROOM AMBULATION WITH GOOD SAFETY. WALKER MGMT AND MANEUVERABILITY WAS GOOD. AMB INTO HALLWAY WITH RW AND 02 AND SBA X 120 FT. FATIGUED A LITTLE MORE QUICKLY TODAY. TOILETING WITH SPV; TOILET HYGIENE WITH SPV; ABLE TO GUICHO SOCKS WITH SET UP; GROOMING TASKS AT SINK WITH SBA. SPV WITH BED MOB. GHISLAINE OSMAN, OTR/L
[2019-07-07 12:52] VITALS: BP 146/77
--- NOTE | 2019-07-07 13:47 | MORECARE ---
CASE MANAGEMENT DISCHARGE SUMMARY PATIENT: OBI LAST UNIT: [id number] ADM DATE: 06/25/19 AGE: 59 : 58 SEX: F ROOM/BED: D.2236 AUTHOR: CHIQUITA ISLAS PHYSICIAN: REFERRING PHYSICIAN: MIC ORR MD DATE OF SERVICE: 07/07/19 Discharge Plan Patient Name: OBI LAST Facility: [facility]:[place] : 1960 Planned Disposition: Inpatient Rehab Anticipated Discharge Date: Discharge Date: Expected LOS: Initial Reviewer: [email or web address] Initial Review Date: 06/28/2019 Generated: 07/07/19 2:47 pm DCP- Discharge Planning Updated by [id number]: Amita Chey on 06/30/19 4:[address] I ALSO SPOKE TO THE PATIENT AND INFORMED THAT INSURANCE HAD DENIED INPATIENT REHAB. I DISCUSSED THE AVAILABILITY OF SNF AND HOME HEALTH AND SHE DECLINES BOTH AT THIS TIME. SHE STATES MY AND MY DAUGHTER TAKE CARE OF ME. CM WILL CONTINUE TO FOLLOW AND ASSIST WITH DISCHARGE PLANNING/NEEDS. DCP- Discharge Planning Updated by [id number]: Amita Chey on 06/30/19 3:[address] OXYGEN SATURATION ON ROOM AIR IS 88% WHICH QUALIFIES HER FOR HOME OXYGEN IF DISCHARGED IN THE NEXT 48 HOURS. [facility] NOTIFIED AND CLINICAL SENT. THEY WILL BRING PORTABLE OXYGEN IN THE EVENT SHE IS DISCHARGED OVER THE WEEKEND. CM WILL CONTINUE TO FOLLOW AND ASSIST WITH DISCHARGE PLANNING/NEEDS. DCP- Discharge Planning Updated by [id number]: Amita Guerrier on 06/30/19 12:[address] Patient's insurance has denied inpatient rehab. I attempted to meet with patient to discuss SNF vs Home health and she asks me to come back at a later time. She states she is trying to sleep. CM will continue to follow and assist with discharge planning/needs. DCP- Discharge Planning Updated by [id number]: Amita Chey on 06/28/19 12:[address] Patient Name: OBI LAST Admission Status: Elective Accout number: [id number] Admission Date: 06-25-2019 : 1960 Admission Diagnosis: Attending: MIC ORR Current LOS: 3 Anticipated DC Date: Planned Disposition: Inpatient Rehab [facility] Discharge Planning Comments: CM met with patient to discuss discharge planning/needs. She states she is tired and to ask questions quickly. I offered to return later and she says "no". She states she lives with her . She states "he helps me with everything." I discussed the availability of inpatient rehab, SNF, home health and DME. She states "I don't know, I just want to go to sleep." I asked if I could order inpatient rehab screen, and she states yes. Rehab prescreen has been ordered as well as OT and PT consults. CM will continue to follow and assist with discharge planning/needs. Rolled Oats Mill Operator: Amita Guerrier DCPIA - Discharge Planning Initial Assessment Updated by [email or web address]: Amita Guerrier on 06/28/19 1:05 pm * Is the patient Alert and Oriented? Yes * How many steps to enter\\exit or inside your home? 0/0 * PCP Dr. Keane at [facility] * Pharmacy [facility] on [address] * Preadmission Environment Home with Family * ADLs Partial Dependent * Partial ADLs (Assistance needed) Ambulation Bathing Dressing Medication Management Toileting Transfers * Equipment Rolling Walker Wheelchair * List name and contact numbers for known caregivers / representatives who currently or will assist patient after discharge: Barrera Last - spouse - [phone] * Verbal permission to speak to the caregivers and representatives has been obtained from the patient. Yes * Community resources currently utilized None * Additional services required to return to the preadmission environment? Yes * Can the patient safely return to the preadmission environment? No * Has this patient been hospitalized within the prior 30 days at any hospital? No External Providers External Provider: [facility] Next Contact Date: Service Request Date: Service Type: Resolution: Reviewer: Comments: Coverage Notice Reviewer: [id number] - Amita Guerrier Notice Issued Date-Time: 06/30/2019 16:46 Notice Type: Patient Choice Letter Notice Delivered To: Patient Relationship to Patient: Self Personal Clothing Laundry Aide Name: Delivery Method: HAND - Hand Delivered Kayce Days: Prior Verbal Notification: Recipient Understood Notice: Yes Recipient Signature: Yes Med Rec Note Co-signed by Attending: Coverage Notice Comment: POLINA FOR [facility] POZO export: 06/30/19 4:08 Patient Name: OBI LAST Page 33842 at 1347 All edits/amendments must be made on the electronic document DICTATION DATE: 07/07/19 134 REGISTRY NURSE: AUTUMN 07/07/197 RPT#: [id number] DC DATE: STATUS: ADM IN [facility] [address] [place] [address] END OF REPORT
[2019-07-07 16:19] VITALS: BP 148/84
--- NOTE | 2019-07-07 16:20 | MORECARE ---
CASE MANAGEMENT DISCHARGE SUMMARY PATIENT: OBI LAST UNIT: [id number] ADM DATE: 06/25/19 AGE: 59 : 58 SEX: F ROOM/BED: D.2236 AUTHOR: CHIQUITA ISLAS PHYSICIAN: REFERRING PHYSICIAN: MIC ORR MD DATE OF SERVICE: 07/07/19 Discharge Plan Patient Name: OBI LAST Facility: [facility]:[place] : 1960 Planned Disposition: Inpatient Rehab Anticipated Discharge Date: Discharge Date: Expected LOS: Initial Reviewer: [id number] Initial Review Date: 06/28/2019 Generated: 07/07/19 5:20 pm DCP- Discharge Planning Updated by [email or web address]: Amita Chey on 06/30/19 4:[address] I ALSO SPOKE TO THE PATIENT AND INFORMED THAT INSURANCE HAD DENIED INPATIENT REHAB. I DISCUSSED THE AVAILABILITY OF SNF AND HOME HEALTH AND SHE DECLINES BOTH AT THIS TIME. SHE STATES MY AND MY DAUGHTER TAKE CARE OF ME. CM WILL CONTINUE TO FOLLOW AND ASSIST WITH DISCHARGE PLANNING/NEEDS. DCP- Discharge Planning Updated by [email or web address]: Amita Chey on 06/30/19 3:[address] OXYGEN SATURATION ON ROOM AIR IS 88% WHICH QUALIFIES HER FOR HOME OXYGEN IF DISCHARGED IN THE NEXT 48 HOURS. [facility] NOTIFIED AND CLINICAL SENT. THEY WILL BRING PORTABLE OXYGEN IN THE EVENT SHE IS DISCHARGED OVER THE WEEKEND. CM WILL CONTINUE TO FOLLOW AND ASSIST WITH DISCHARGE PLANNING/NEEDS. DCP- Discharge Planning Updated by [email or web address]: Amita Guerrier on 06/30/19 12:[address] Patient's insurance has denied inpatient rehab. I attempted to meet with patient to discuss SNF vs Home health and she asks me to come back at a later time. She states she is trying to sleep. CM will continue to follow and assist with discharge planning/needs. DCP- Discharge Planning Updated by [id number]: Amita Chey on 06/28/19 12:[address] Patient Name: OBI LAST Admission Status: Elective Accout number: [id number] Admission Date: 06-25-2019 : 1960 Admission Diagnosis: Attending: MIC ORR Current LOS: 3 Anticipated DC Date: Planned Disposition: Inpatient Rehab [facility] Discharge Planning Comments: CM met with patient to discuss discharge planning/needs. She states she is tired and to ask questions quickly. I offered to return later and she says "no". She states she lives with her . She states "he helps me with everything." I discussed the availability of inpatient rehab, SNF, home health and DME. She states "I don't know, I just want to go to sleep." I asked if I could order inpatient rehab screen, and she states yes. Rehab prescreen has been ordered as well as OT and PT consults. CM will continue to follow and assist with discharge planning/needs. Pumper Gauger Apprentice: Amita Guerrier DCPIA - Discharge Planning Initial Assessment Updated by [id number]: Amita Guerrier on 06/28/19 1:05 pm * Is the patient Alert and Oriented? Yes * How many steps to enter\\exit or inside your home? 0/0 * PCP Dr. Keane at [facility] * Pharmacy [facility] on [address] * Preadmission Environment Home with Family * ADLs Partial Dependent * Partial ADLs (Assistance needed) Ambulation Bathing Dressing Medication Management Toileting Transfers * Equipment Rolling Walker Wheelchair * List name and contact numbers for known caregivers / representatives who currently or will assist patient after discharge: Barrera Last - [facility] - [phone] * Verbal permission to speak to the caregivers and representatives has been obtained from the patient. Yes * Community resources currently utilized None * Additional services required to return to the preadmission environment? Yes * Can the patient safely return to the preadmission environment? No * Has this patient been hospitalized within the prior 30 days at any hospital? No External Providers [facility] Next Contact Date: Service Request Date: Service Type: Resolution: Reviewer: Comments: External Provider: [facility] Next Contact Date: Service Request Date: Service Type: Resolution: Reviewer: Comments: Coverage Notice Reviewer: [id number] - Amita Guerrier Notice Issued Date-Time: 06/30/2019 16:46 Notice Type: Patient Choice Letter Notice Delivered To: Patient Relationship to Patient: Self Pattern Grader Name: Delivery Method: HAND - Hand Delivered Kayce Days: Prior Verbal Notification: Recipient Understood Notice: Yes Recipient Signature: Yes Med Rec Note Co-signed by Attending: Coverage Notice Comment: POLINA FOR CARIDAD Cabrera DP export: 07/07/19 12:47 p Patient Name: OBI LAST Page 18686 at 1620 All edits/amendments must be made on the electronic document DICTATION DATE: 07/07/191619 CONSTRUCTION TRENCH DIGGER: AUTUMN 07/07/19 1620 RPT#: [id number] DC DATE: STATUS: ADM IN [facility] [address] [place] [address] END OF REPORT
--- NOTE | 2019-07-07 16:39 | MORECARE ---
CASE MANAGEMENT DISCHARGE SUMMARY PATIENT: OBI LAST UNIT: [id number] ADM DATE: 06/25/19 AGE: 59 : 58 SEX: F ROOM/BED: D.2236 AUTHOR: CHIQUITA ISLAS PHYSICIAN: REFERRING PHYSICIAN: MIC ORR MD DATE OF SERVICE: 07/07/19 Discharge Plan Patient Name: OBI LAST Facility: [facility]:[place] : 1960 Planned Disposition: Inpatient Rehab Anticipated Discharge Date: Discharge Date: Expected LOS: Initial Reviewer: [id number] Initial Review Date: 06/28/2019 Generated: 07/07/19 5:39 pm Comments DCP- Discharge Planning Updated by [id number]: Amita Guerrier on 07/07/19 3:[address] I discussed inpatient rehab vs SNF with patient today and she states she wants to go home. Asks "why can't I get the antibiotics at home." I informed her that there may be a copay amount for IV antibiotics at home, but I can peoples different companies and they can set up a payment plan if needed. She states she wants to go home. I gave her a POLINA form for home health and she asks me to call her . I called her and he states whoever will take their insurance. He states [facility] for first choice after I reviewed the home health available in the area. He states that he is a teachable patient centered care specialist for antibiotics. I spoke with Yamil with [facility] and they are in network. Her PCP is Jeannette Keane at [facility]. I spoke with Celsa Jackson with [place] and Andrade with [facility] to peoples antibiotics and faxed face sheet with order. Clinical faxed to [facility]. CM will continue to follow and assist with discharge planning/needs. DCP- Discharge Planning Updated by [id number]: Amita Guerrier on 06/30/19 4:[address] I ALSO SPOKE TO THE PATIENT AND INFORMED THAT INSURANCE HAD DENIED INPATIENT REHAB. I DISCUSSED THE AVAILABILITY OF SNF AND HOME HEALTH AND SHE DECLINES BOTH AT THIS TIME. SHE STATES MY AND MY DAUGHTER TAKE CARE OF ME. CM WILL CONTINUE TO FOLLOW AND ASSIST WITH DISCHARGE PLANNING/NEEDS. DCP- Discharge Planning Updated by [id number]: Amita Guerrier on 06/30/19 3:[address] OXYGEN SATURATION ON ROOM AIR IS 88% WHICH QUALIFIES HER FOR HOME OXYGEN IF DISCHARGED IN THE NEXT 48 HOURS. [facility] NOTIFIED AND CLINICAL SENT. THEY WILL BRING PORTABLE OXYGEN IN THE EVENT SHE IS DISCHARGED OVER THE WEEKEND. CM WILL CONTINUE TO FOLLOW AND ASSIST WITH DISCHARGE PLANNING/NEEDS. DCP- Discharge Planning Updated by [id number]: Amita Guerrier on 06/30/19 12:[address] Patient's insurance has denied inpatient rehab. I attempted to meet with patient to discuss SNF vs Home health and she asks me to come back at a later time. She states she is trying to sleep. CM will continue to follow and assist with discharge planning/needs. DCP- Discharge Planning Updated by [id number]: Amita Guerrier on 06/28/19 12:[address] Patient Name: OBI LAST Admission Status: Elective Accout number: [id number] Admission Date: 06-25-2019 : 1960 Admission Diagnosis: Attending: MIC ORR Current LOS: 3 Anticipated DC Date: Planned Disposition: Inpatient Rehab [facility] Discharge Planning Comments: CM met with patient to discuss discharge planning/needs. She states she is tired and to ask questions quickly. I offered to return later and she says "no". She states she lives with her . She states "he helps me with everything." I discussed the availability of inpatient rehab, SNF, home health and DME. She states "I don't know, I just want to go to sleep." I asked if I could order inpatient rehab screen, and she states yes. Rehab prescreen has been ordered as well as OT and PT consults. CM will continue to follow and assist with discharge planning/needs. Build And Release Manager: Amita Guerrier DCPIA - Discharge Planning Initial Assessment Updated by [id number]: Amita Guerrier on 06/28/19 1:05 pm * Is the patient Alert and Oriented? Yes * How many steps to enter\\exit or inside your home? 0/0 * PCP Dr. Keane at [facility] * Pharmacy [facility] on [address] * Preadmission Environment Home with Family * ADLs Partial Dependent * Partial ADLs (Assistance needed) Ambulation Bathing Dressing Medication Management Toileting Transfers * Equipment Rolling Walker Wheelchair * List name and contact numbers for known caregivers / representatives who currently or will assist patient after discharge: Barrera Last - spouse - [phone] * Verbal permission to speak to the caregivers and representatives has been obtained from the patient. Yes * Community resources currently utilized None * Additional services required to return to the preadmission environment? Yes * Can the patient safely return to the preadmission environment? No * Has this patient been hospitalized within the prior 30 days at any hospital? No Coverage Notice Reviewer: [id number] Tori Guerrier Notice Issued Date-Time: 06/30/2019 16:46 Notice Type: Patient Choice Letter Notice Delivered To: Patient Relationship to Patient: Self Investor Relations Coordinator Name: Delivery Method: HAND - Hand Delivered Kayce Days: Prior Verbal Notification: Recipient Understood Notice: Yes Recipient Signature: Yes Med Rec Note Co-signed by Attending: Coverage Notice Comment: POLINA FOR [facility] Last DP export: 07/07/19 3:20 p Patient Name: OBI LAST Page [id number] at 1639 All edits/amendments must be made on the electronic document DICTATION DATE: 07/07/191638 EQUIPMENT SPECIALIST: AUTUMN 07/07/191638 RPT#: [id number] DC DATE: STATUS: ADM IN [facility] [address] [place] [address] END OF REPORT
--- NOTE | 2019-07-07 17:09 | MORECARE ---
CASE MANAGEMENT DISCHARGE SUMMARY PATIENT: OBI LAST UNIT: [id number] ADM DATE: 06/25/19 AGE: 59 : 58 SEX: F ROOM/BED: D.2236 AUTHOR: CHIQUITA ISLAS PHYSICIAN: REFERRING PHYSICIAN: MIC ORR MD DATE OF SERVICE: 07/07/19 Discharge Plan Patient Name: OBI LAST Facility: [facility]:[place] : 1960 Planned Disposition: Inpatient Rehab Anticipated Discharge Date: Discharge Date: Expected LOS: Initial Reviewer: [id number] Initial Review Date: 06/28/2019 Generated: 07/07/19 6:08 pm Comments DCP- Discharge Planning Updated by [email or web address]: Amita Guerrier on 07/07/19 4:[address] I received a call back from [facility] and her antibiotics and supplies are covered at 100%. She would like to use [facility]. Clinical faxed to [facility]. Tentative plan for discharge on Wednesday evening with [address] health start of care on Wednesday. CM will continue to follow and assist with discharge planning/needs. DCP- Discharge Planning Updated by [email or web address]: Amita Guerrier on 07/07/19 3:[address] I discussed inpatient rehab vs SNF with patient today and she states she wants to go home. Asks "why can't I get the antibiotics at home." I informed her that there may be a copay amount for IV antibiotics at home, but I can peoples different companies and they can set up a payment plan if needed. She states she wants to go home. I gave her a POLINA form for home health and she asks me to call her . I called her and he states whoever will take their insurance. He states [facility] for first choice after I reviewed the home health available in the area. He states that he is a teachable managed care specialist for antibiotics. I spoke with Yamil with [facility] and they are in network. Her PCP is Jeannette Keane at [facility]. I spoke with Celsa Jackson with [facility] with [facility] to peoples antibiotics and faxed face sheet with order. Clinical faxed to [facility]. CM will continue to follow and assist with discharge planning/needs. DCP- Discharge Planning Updated by [id number]: Amita Guerrier on 06/30/19 4:[address] I ALSO SPOKE TO THE PATIENT AND INFORMED THAT INSURANCE HAD DENIED INPATIENT REHAB. I DISCUSSED THE AVAILABILITY OF SNF AND HOME HEALTH AND SHE DECLINES BOTH AT THIS TIME. SHE STATES MY AND MY DAUGHTER TAKE CARE OF ME. CM WILL CONTINUE TO FOLLOW AND ASSIST WITH DISCHARGE PLANNING/NEEDS. DCP- Discharge Planning Updated by [id number]: Amita Guerrier on 06/30/19 3:[address] OXYGEN SATURATION ON ROOM AIR IS 88% WHICH QUALIFIES HER FOR HOME OXYGEN IF DISCHARGED IN THE NEXT 48 HOURS. [facility] NOTIFIED AND CLINICAL SENT. THEY WILL BRING PORTABLE OXYGEN IN THE EVENT SHE IS DISCHARGED OVER THE WEEKEND. CM WILL CONTINUE TO FOLLOW AND ASSIST WITH DISCHARGE PLANNING/NEEDS. DCP- Discharge Planning Updated by [id number]: Amita Guerrier on 06/30/19 12:[address] Patient's insurance has denied inpatient rehab. I attempted to meet with patient to discuss SNF vs Home health and she asks me to come back at a later time. She states she is trying to sleep. CM will continue to follow and assist with discharge planning/needs. DCP- Discharge Planning Updated by [id number]: Amita Guerrier on 06/28/19 12:[address] Patient Name: OBI LAST Admission Status: Elective Accout number: [id number] Admission Date: 06-25-2019 : 1960 Admission Diagnosis: Attending: MIC ORR Current LOS: 3 Anticipated DC Date: Planned Disposition: Inpatient Rehab [facility] Discharge Planning Comments: CM met with patient to discuss discharge planning/needs. She states she is tired and to ask questions quickly. I offered to return later and she says "no". She states she lives with her . She states "he helps me with everything." I discussed the availability of inpatient rehab, SNF, home health and DME. She states "I don't know, I just want to go to sleep." I asked if I could order inpatient rehab screen, and she states yes. Rehab prescreen has been ordered as well as OT and PT consults. CM will continue to follow and assist with discharge planning/needs. [employer] Coxswain: Amita Guerrier DCPIA - Discharge Planning Initial Assessment Updated by [id number]: Amita Guerrier on 06/28/19 1:05 pm * Is the patient Alert and Oriented? Yes * How many steps to enter\\exit or inside your home? 0/0 * PCP Dr. Keane at [facility] * Pharmacy [facility] on [address] * Preadmission Environment Home with Family * ADLs Partial Dependent * Partial ADLs (Assistance needed) Ambulation Bathing Dressing Medication Management Toileting Transfers * Equipment Rolling Walker Wheelchair * List name and contact numbers for known caregivers / representatives who currently or will assist patient after discharge: Barrera Last - [facility] - [phone] * Verbal permission to speak to the caregivers and representatives has been obtained from the patient. Yes * Community resources currently utilized None * Additional services required to return to the preadmission environment? Yes * Can the patient safely return to the preadmission environment? No * Has this patient been hospitalized within the prior 30 days at any hospital? No Coverage Notice Reviewer: [id number] Tori Guerrier Notice Issued Date-Time: 06/30/2019 16:46 Notice Type: Patient Choice Letter Notice Delivered To: Patient Relationship to Patient: Self Costumed Character Entertainer Name: Delivery Method: HAND - Hand Delivered Kayce Days: Prior Verbal Notification: Recipient Understood Notice: Yes Recipient Signature: Yes Med Rec Note Co-signed by Attending: Coverage Notice Comment: POLINA FOR MARYKIRBY Reviewer: [id number] Tori Guerrier Notice Issued Date-Time: 07/07/2019 16:41 Notice Type: Patient Choice Letter Notice Delivered To: Patient Relationship to Patient: Self Costumed Character Entertainer Name: Delivery Method: HAND - Hand Delivered Kayce Days: Prior Verbal Notification: Recipient Understood Notice: Yes Recipient Signature: Yes Med Rec Note Co-signed by Attending: Coverage Notice Comment: [facility] FOR [facility] [place] [facility] [place] Last DP export: 07/07/19 3:39 p Patient Name: OBI LAST Page 37914 at 1709 All edits/amendments must be made on the electronic document DICTATION DATE: 07/07/191707 FINANCIAL ADVISOR TRAINEE: AUTUMN 07/07/191707 RPT#: [id number] DC DATE: STATUS: ADM IN [facility] [address] [place] [address] END OF REPORT
[2019-07-07 21:36] VITALS: BP 130/68
--- NOTE | 2019-07-07 22:50 | NUR ---
A/O WITH NO SIGNS OF ACUTE DISTRESS. IV TO THE LT WRIST WTIH NO REDNESS OR SWELLING. DRESSING TO THE BACK, CDI. NC ON @3L. DENIES NO OTHER NEEDS AT THIS TIME. CONTINUE PLAN OF CARE.
[2019-07-08 01:05] VITALS: BP 145/81
[2019-07-08 05:16] VITALS: BP 186/95
[2019-07-08 06:13] LABS: BASOPHILS 0.1 % (0-2); EOSINOPHILS 0.4 % (0-7); LYMPHOCYTES 5.7 % (15-50); MCH 32.9 pg (26.0-34.0); MCHC 32.6 g/dL (31.0-37.0); MEAN PLATELET VOLUME 10.9 fL (7.4-10.4); MONOCYTES 4.1 % (2-11); NEUTROPHILS 87.7 % (40-80); RDW 13.5 % (11.5-14.5)
[2019-07-08 06:16] LABS: ANION GAP 14.5 mmol/L (8-16); CALCIUM 8.4 mg/dL (8.5-10.1); CARBON DIOXIDE 28.9 mmol/L (21.0-32.0); CREATININE - SERUM 1.5 mg/dL (0.6-1.3); HEMATOCRIT 41.4 % (36.0-48.0); HEMOGLOBIN 13.5 g/dL (12-16); PLATELET COUNT 266 10x3/uL (130-400); WBC 19.5 10x3/uL (4.8-10.8)
[2019-07-08 06:18] LABS: POTASSIUM - SERUM 3.4 mmol/L (3.5-5.1)
[2019-07-08 07:56] VITALS: BP 123/74
[2019-07-08 19:30] VITALS: BP 120/62
--- NOTE | 2019-07-08 20:10 | NUR ---
SITTING UP IN BED EATING A SANDWICH. ALERT AND ORIENTED X4. RESP EVEN AND NONLABORED. TELEMETRY SHOWS SR WITH RATE OF 67. BRUISES NOTED TO BUE. PT DOES NOT HAVE AN IV DUE TO LOSING IV SITE TODAY. CONSULT NOTED FOR ACCESS NURSE. PT STATES SHE HAS BEEN STUCK MULTIPLE TIMES AND FEELS LIKE A PIN CUSHION. REDNESS NOTED TO RT FOOT. PT RATES PAIN A 7 IN RT FOOT. MEDICATED WITH [facility]CO AT SHIFT CHANGE. HANDS ARE SWOLLEN. 2+ EDEMA NOTED TO BLE. AMBULATORY. YEAST/REDNESS NOTED UNDER BILAT BREASTS AND GROIN. SR ELEVATED X2. CL IN REACH.
[2019-07-09 00:30] VITALS: BP 142/78
--- NOTE | 2019-07-09 00:48 | NUR ---
HAS RESTED WELL SO FAR THIS SHIFT. LYING IN BED WITH EYES CLOSED. RESP EVEN AND NONLABORED. CL IN REACH. NO DISTRESS.
--- NOTE | 2019-07-09 01:40 | NUR ---
SITTING UP IN BED WATCHING TV. MEDICATED WITH [facility]CO FOR C/O CHRONIC BACK PAIN RATING 6. CL IN REACH. NO DISTRESS.
[2019-07-09 04:30] VITALS: BP 157/93
[2019-07-09 05:50] LABS: ANION GAP 9.1 mmol/L (8-16); CALCIUM 8.3 mg/dL (8.5-10.1); CARBON DIOXIDE 33.4 mmol/L (21.0-32.0); CREATININE - SERUM 1.3 mg/dL (0.6-1.3)
[2019-07-09 05:52] LABS: POTASSIUM - SERUM 3.5 mmol/L (3.5-5.1)
[2019-07-09 05:55] LABS: BASOPHILS 0.1 % (0-2); HEMATOCRIT 34.2 % (36.0-48.0); HEMOGLOBIN 10.8 g/dL (12-16); IMMATURE GRANULOCYTES 1.2 % (0-5); LYMPHOCYTES 9.6 % (15-50); MCH 32.1 pg (26.0-34.0); MCHC 31.6 g/dL (31.0-37.0); MCV 101.8 fL (80.0-100.0); MEAN PLATELET VOLUME 10.9 fL (7.4-10.4); NEUTROPHILS 81.1 % (40-80); RBC 3.36 10x6/uL (4.00-5.40); RDW 13.5 % (11.5-14.5)
[2019-07-09 06:03] LABS: PLATELET COUNT 194 10x3/uL (130-400); WBC 8.3 10x3/uL (4.8-10.8)
[2019-07-09 08:10] VITALS: BP 174/88
--- NOTE | 2019-07-09 09:48 | NUR ---
PT ALERT X 4. BREATH SOUNDS CLEAR BILAT. TELEMETRY IN PLACE. NO IV ACCESS AT THIS TIME. PT REPORTING PAIN OF 7/10 TO BACK, MEDICATED PER ORDERS, WILL MONITOR. +1 EDEMA TO BLE. BED LOW, CALL LIGHT IN REACH. NO OTHER NEEDS AT THIS TIME.
[2019-07-09 12:11] VITALS: BP 170/87
[2019-07-09 19:30] VITALS: BP 117/54
--- NOTE | 2019-07-09 20:00 | NUR ---
A/O WITH NO SIGNS OF ACUTE DISTRESS. COULD NOT GIVE IV MEDS DUE TO NO IV. WILL BE GOING TOMORROW FOR PICC LINE PLACEMENT. NC @3L. DENIES NO NEEDS AT THIS TIME. CONTINUE PLAN OF CARE.
[2019-07-10 00:30] VITALS: BP 136/81
[2019-07-10 04:00] VITALS: BP 171/92
[2019-07-10 06:55] LABS: ANION GAP 9.8 mmol/L (8-16); CALCIUM 8.4 mg/dL (8.5-10.1); CARBON DIOXIDE 32.3 mmol/L (21.0-32.0); CREATININE - SERUM 1.2 mg/dL (0.6-1.3)
[2019-07-10 06:56] LABS: POTASSIUM - SERUM 4.1 mmol/L (3.5-5.1)
--- NOTE | 2019-07-10 07:00 | NUR ---
PT RESTING IN BED WITH EYES CLOSED, EASILY AROUSED TO SPEECH, ALERT AND ORIENTED. NO IV PRESENT. NO S/S OF DISTRESS AT THIS TIME AND DENIES ANY NEEDS. WILL CONT TO MONITOR.
[2019-07-10 07:32] LABS: BASOPHILS 0 % (0-2); EOSINOPHILS 0.8 % (0-7); HEMOGLOBIN 11.6 g/dL (12-16); IMMATURE GRANULOCYTES 1.2 % (0-5); LYMPHOCYTES 8.8 % (15-50); MCHC 31.4 g/dL (31.0-37.0); MCV 102.2 fL (80.0-100.0); MEAN PLATELET VOLUME 11.6 fL (7.4-10.4); MONOCYTES 6.6 % (2-11); NEUTROPHILS 82.6 % (40-80); PLATELET COUNT 180 10x3/uL (130-400); RBC 3.62 10x6/uL (4.00-5.40); RDW 13.5 % (11.5-14.5); WBC 9.1 10x3/uL (4.8-10.8)
[2019-07-10 08:29] VITALS: BP 179/116
--- NOTE | 2019-07-10 12:17 | NUR ---
Rehab Note- New Acute Inpatient REhab prescreen order received. The patient has private insurance of [employer] and has been denied previous acute rehab stay during this acute hospitalization. THe patient is doing well with therapy when she doesn't refuse. The patient is too functional for inpatient acute rehab at this time. Thank you for this referral! Teri Del Rio RN Clinical Liaison, [facility] Rehab
--- NOTE | 2019-07-10 12:51 | NUR ---
UP WALKING AROUND NURSING STATION WITH PT.
[2019-07-10 13:00] VITALS: BP 143/83
[2019-07-10 15:45] VITALS: BP 122/67
[2019-07-10] MEDS ORDERED: ZYLOPRIM300 MG PO (16:04)
[2019-07-10] MEDS ORDERED: PREDNISONE10 MG PO (16:05)
[2019-07-10] MEDS ORDERED: VANCOMYCIN 1.5 GM/NS IV (16:06)
[2019-07-10] MEDS ORDERED: ROCEPHIN 2 GM/D5W 50 IV (16:06)
[2019-07-10] MEDS ORDERED: IPRAT-ALBUT 0.5-3 ML UPD (16:11)
[2019-07-10] MEDS ORDERED: BUMETANIDE0.5 MG PO (16:11)
--- NOTE | 2019-07-10 16:53 | NUR ---
OT NOTE: PT COMPLETED BED MOB TASKS WITH SBA. PT COMPLETED SUPINE TO SIT WITH SBA. PT COMPLETED SIDE STEPPING WITH SBA. PT COMPLETED TOILETING WITH SBA. THANK YOU, TANIA VAZQUEZ
--- NOTE | 2019-07-10 16:53 | MORECARE ---
CASE MANAGEMENT DISCHARGE SUMMARY PATIENT: OBI RODRÍGUEZ UNIT: [id number] ADM DATE: 06/25/19 AGE: 59 : 58 SEX: F ROOM/BED: D.2236 AUTHOR: CHIQUITA ISLAS PHYSICIAN: REFERRING PHYSICIAN: MIC ORR MD DATE OF SERVICE: 07/10/19 Discharge Plan Patient Name: OBI RODRÍGUEZ Facility: [facility]:[place] : 1960 Planned Disposition: Inpatient Rehab Anticipated Discharge Date: Discharge Date: Expected LOS: Initial Reviewer: [email or web address] Initial Review Date: 06/28/2019 Generated: 07/10/19 5:53 pm Comments DCP- Discharge Planning Updated by [email or web address]: Amita Guerrier on 07/10/19 3:[address] Discharge orders received. I called El at [facility], they will start care in the morning. I called Jazmyn with [facility], they are delivering the IV antibiotic to the home or to the hospital (Jazmyn states they will call the to work that out depending on where they are when the heavy truck driver gets here). I informed the patient and she states they have already called and will meet them at the house. CM will continue to follow and assist with discharge planning/needs. Home today with home health and [facility] infusion [facility]. DCP- Discharge Planning Updated by [email or web address]: Amita Chey on 07/07/19 5:[address] I received a call back from [facility] and her antibiotics and supplies are covered at 100%. She would like to use [facility]. Clinical faxed to [facility]. Tentative plan for discharge on Wednesday evening with [address] health start of care on Wednesday morning. CM will continue to follow and assist with discharge planning/needs. DCP- Discharge Planning Updated by [email or web address]: Amita Chey on 07/07/19 4:[address] I discussed inpatient rehab vs SNF with patient today and she states she wants to go home. Asks "why can't I get the antibiotics at home." I informed her that there may be a copay amount for IV antibiotics at home, but I can peoples different companies and they can set up a payment plan if needed. She states she wants to go home. I gave her a [employer]INA form for home health and she asks me to call her . I called her and he states whoever will take their insurance. He states [facility] for first choice after I reviewed the home health available in the area. He states that he is a teachable career development manager for antibiotics. I spoke with Yamil with [facility] and they are in network. Her PCP is Jeannette Keane at [facility]. I spoke with Celsa Jackson with [facility] and Andrade with [facility] to peoples antibiotics and faxed face sheet with order. Clinical faxed to [facility]. CM will continue to follow and assist with discharge planning/needs. DCP- Discharge Planning Updated by [id number]: Amita Guerrier on 06/30/19 5:[address] I ALSO SPOKE TO THE PATIENT AND INFORMED THAT INSURANCE HAD DENIED INPATIENT REHAB. I DISCUSSED THE AVAILABILITY OF SNF AND HOME HEALTH AND SHE DECLINES BOTH AT THIS TIME. SHE STATES MY AND MY DAUGHTER TAKE CARE OF ME. CM WILL CONTINUE TO FOLLOW AND ASSIST WITH DISCHARGE PLANNING/NEEDS. DCP- Discharge Planning Updated by [id number]: Amita Guerrier on 06/30/19 4:[address] OXYGEN SATURATION ON ROOM AIR IS 88% WHICH QUALIFIES HER FOR HOME OXYGEN IF DISCHARGED IN THE NEXT 48 HOURS. [facility] NOTIFIED AND CLINICAL SENT. THEY WILL BRING PORTABLE OXYGEN IN THE EVENT SHE IS DISCHARGED OVER THE WEEKEND. CM WILL CONTINUE TO FOLLOW AND ASSIST WITH DISCHARGE PLANNING/NEEDS. DCP- Discharge Planning Updated by [id number]: Amita Guerrier on 06/30/19 1:[address] Patient's insurance has denied inpatient rehab. I attempted to meet with patient to discuss SNF vs Home health and she asks me to come back at a later time. She states she is trying to sleep. CM will continue to follow and assist with discharge planning/needs. DCP- Discharge Planning Updated by [email or web address]: Amita Guerrier on 06/28/19 1:[address] Patient Name: OBI RODRÍGUEZ Admission Status: Elective Accout number: [id number] Admission Date: 06-25-2019 : 1960 Admission Diagnosis: Attending: MIC ORR Current LOS: 3 Anticipated DC Date: Planned Disposition: Inpatient Rehab Primary Insurance: [employer] MARCELLE Discharge Planning Comments: CM met with patient to discuss discharge planning/needs. She states she is tired and to ask questions quickly. I offered to return later and she says "no". She states she lives with her . She states "he helps me with everything." I discussed the availability of inpatient rehab, SNF, home health and DME. She states "I don't know, I just want to go to sleep." I asked if I could order inpatient rehab screen, and she states yes. Rehab prescreen has been ordered as well as OT and PT consults. CM will continue to follow and assist with discharge planning/needs. Oracle Sql Developer: Amita Guerrier DCPIA - Discharge Planning Initial Assessment Updated by [email or web address]: Amita Guerrier on 06/28/19 1:05 pm * Is the patient Alert and Oriented? Yes * How many steps to enter\\exit or inside your home? 0/0 * PCP Dr. Keane at [facility] * Pharmacy [facility] on [address] * Preadmission Environment Home with Family * ADLs Partial Dependent * Partial ADLs (Assistance needed) Ambulation Bathing Dressing Medication Management Toileting Transfers * Equipment Rolling Walker Wheelchair * List name and contact numbers for known caregivers / representatives who currently or will assist patient after discharge: Barrera Mccartysarah - [facility] - [phone] * Verbal permission to speak to the caregivers and representatives has been obtained from the patient. Yes * Community resources currently utilized None * Additional services required to return to the preadmission environment? Yes * Can the patient safely return to the preadmission environment? No * Has this patient been hospitalized within the prior 30 days at any hospital? No Coverage Notice Reviewer: [email or web address] Tori Guerrier Notice Issued Date-Time: 06/30/2019 16:46 Notice Type: Patient Choice Letter Notice Delivered To: Patient Relationship to Patient: Self Carpenter Labor Supervisor Name: Delivery Method: HAND - Hand Delivered Kayce Days: Prior Verbal Notification: Recipient Understood Notice: Yes Recipient Signature: Yes Med Rec Note Co-signed by Attending: Coverage Notice Comment: POLINA MCLEAN Reviewer: [id number] Tori Guerrier Notice Issued Date-Time: 07/07/2019 16:41 Notice Type: Patient Choice Letter Notice Delivered To: Patient Relationship to Patient: Self Carpenter Labor Supervisor Name: Delivery Method: HAND - Hand Delivered Kayce Days: Prior Verbal Notification: Recipient Understood Notice: Yes Recipient Signature: Yes Med Rec Note Co-signed by Attending: Coverage Notice Comment: [facility] FOR [facility] [place] [facility] Last DP export: 07/07/19 5:09 p Patient Name: OBI RODRÍGUEZ Page [id number] at 1653 All edits/amendments must be made on the electronic document DICTATION DATE: 07/10/191652 ELECTRICAL MACHINIST: AUTUMN 07/10/191652 RPT#: [id number] DC DATE: STATUS: ADM IN [facility] [address] [place] [address] END OF REPORT
--- NOTE | 2019-07-10 21:25 | NUR ---
1999) PAPERS DC INSTRUCTIONS ALREADY GIVEN PER PREVIOUS SHIFT. AWAITING IV ABX TO FINISH TO BE DISCHARGED.2034) PICC LINE FLUSHED DRESSING CHGED.DC'D. HOME WITH VIA WHEELCHAIR.
--- NOTE | 2019-07-13 09:35 | MORECARE ---
CASE MANAGEMENT DISCHARGE SUMMARY PATIENT: OBI LAST UNIT: [id number] ADM DATE: 06/25/19 AGE: 59 : 58 SEX: F ROOM/BED: D.2236 AUTHOR: CHIQUITA ISLAS PHYSICIAN: REFERRING PHYSICIAN: MIC ORR MD DATE OF SERVICE: 07/13/19 Discharge Plan Patient Name: OBI LAST Facility: [facility]:[place] : 1960 Planned Disposition: Inpatient Rehab Anticipated Discharge Date: Discharge Date: 07/10/2019 Expected LOS: 0 Initial Reviewer: [email or web address] Initial Review Date: 06/28/2019 Generated: 07/13/19 10:35 am Comments DCP- Discharge Planning Updated by [email or web address]: Amita Guerrier on 07/10/19 3:[address] Discharge orders received. I called El at [facility], they will start care in the morning. I called Jazmyn with [email or web address], they are delivering the IV antibiotic to the home or to the hospital (Jazmyn states they will call the to work that out depending on where they are when the driver manager gets here). I informed the patient and she states they have already called and will meet them at the house. CM will continue to follow and assist with discharge planning/needs. Home today with [facility]. DCP- Discharge Planning Updated by [email or web address]: Amita Chey on 07/07/19 5:[address] I received a call back from [email or web address] and her antibiotics and supplies are covered at 100%. She would like to use [email or web address]. Clinical faxed to [email or web address]. Tentative plan for discharge on Wednesday evening with [address] health start of care on Wednesday morning. CM will continue to follow and assist with discharge planning/needs. DCP- Discharge Planning Updated by [id number]: Amita Chey on 07/07/19 4:[address] I discussed inpatient rehab vs SNF with patient today and she states she wants to go home. Asks "why can't I get the antibiotics at home." I informed her that there may be a copay amount for IV antibiotics at home, but I can peoples different companies and they can set up a payment plan if needed. She states she wants to go home. I gave her a [employer] form for home health and she asks me to call her . I called her and he states whoever will take their insurance. He states [facility] for first choice after I reviewed the home health available in the area. He states that he is a teachable critical care nurse for antibiotics. I spoke with Yamil with [facility] and they are in network. Her PCP is Jeannette Keane at [facility]. I spoke with Celsa Jackson with [facility] and Andrade with [employer] to peoples antibiotics and faxed face sheet with order. Clinical faxed to [facility]. CM will continue to follow and assist with discharge planning/needs. DCP- Discharge Planning Updated by [id number]: Amita Guerrier on 06/30/19 5:[address] I ALSO SPOKE TO THE PATIENT AND INFORMED THAT INSURANCE HAD DENIED INPATIENT REHAB. I DISCUSSED THE AVAILABILITY OF SNF AND HOME HEALTH AND SHE DECLINES BOTH AT THIS TIME. SHE STATES MY AND MY DAUGHTER TAKE CARE OF ME. CM WILL CONTINUE TO FOLLOW AND ASSIST WITH DISCHARGE PLANNING/NEEDS. DCP- Discharge Planning Updated by [id number]: Amita Guerrier on 06/30/19 4:[address] OXYGEN SATURATION ON ROOM AIR IS 88% WHICH QUALIFIES HER FOR HOME OXYGEN IF DISCHARGED IN THE NEXT 48 HOURS. [facility] NOTIFIED AND CLINICAL SENT. THEY WILL BRING PORTABLE OXYGEN IN THE EVENT SHE IS DISCHARGED OVER THE WEEKEND. CM WILL CONTINUE TO FOLLOW AND ASSIST WITH DISCHARGE PLANNING/NEEDS. DCP- Discharge Planning Updated by [id number]: Amita Ayalahali on 06/30/19 1:[address] Patient's insurance has denied inpatient rehab. I attempted to meet with patient to discuss SNF vs Home health and she asks me to come back at a later time. She states she is trying to sleep. CM will continue to follow and assist with discharge planning/needs. DCP- Discharge Planning Updated by [id number]: Amita Guerrier on 06/28/19 1:[address] Patient Name: OBI LAST Admission Status: Elective Accout number: [id number] Admission Date: 06-25-2019 : 1960 Admission Diagnosis: Attending: MIC ORR Current LOS: 3 Anticipated DC Date: Planned Disposition: Inpatient Rehab Primary Insurance: [employer] MARCELLE Discharge Planning Comments: CM met with patient to discuss discharge planning/needs. She states she is tired and to ask questions quickly. I offered to return later and she says "no". She states she lives with her . She states "he helps me with everything." I discussed the availability of inpatient rehab, SNF, home health and DME. She states "I don't know, I just want to go to sleep." I asked if I could order inpatient rehab screen, and she states yes. Rehab prescreen has been ordered as well as OT and PT consults. CM will continue to follow and assist with discharge planning/needs. Wood Technologist: Amita Guerrier DCPIA - Discharge Planning Initial Assessment Updated by [id number]: Amita Guerrier on 06/28/19 1:05 pm * Is the patient Alert and Oriented? Yes * How many steps to enter\\exit or inside your home? 0/0 * PCP Dr. Keane at [facility] * Pharmacy [facility] on [address] * Preadmission Environment Home with Family * ADLs Partial Dependent * Partial ADLs (Assistance needed) Ambulation Bathing Dressing Medication Management Toileting Transfers * Equipment Rolling Walker Wheelchair * List name and contact numbers for known caregivers / representatives who currently or will assist patient after discharge: Barrera Last - [facility] - [phone] * Verbal permission to speak to the caregivers and representatives has been obtained from the patient. Yes * Community resources currently utilized None * Additional services required to return to the preadmission environment? Yes * Can the patient safely return to the preadmission environment? No * Has this patient been hospitalized within the prior 30 days at any hospital? No Coverage Notice Reviewer: [email or web address] Tori Guerrier Notice Issued Date-Time: 06/30/2019 16:46 Notice Type: Patient Choice Letter Notice Delivered To: Patient Relationship to Patient: Self Finishing Room Operator Name: Delivery Method: HAND - Hand Delivered Kayce Days: Prior Verbal Notification: Recipient Understood Notice: Yes Recipient Signature: Yes Med Rec Note Co-signed by Attending: Coverage Notice Comment: POLINA MCLEAN Reviewer: [id number] Tori Guerrier Notice Issued Date-Time: 07/07/2019 16:41 Notice Type: Patient Choice Letter Notice Delivered To: Patient Relationship to Patient: Self Finishing Room Operator Name: Delivery Method: HAND - Hand Delivered Kayce Days: Prior Verbal Notification: Recipient Understood Notice: Yes Recipient Signature: Yes Med Rec Note Co-signed by Attending: Coverage Notice Comment: [facility] FOR [facility] Last DP export: 07/10/19 3:53 p Patient Name: OBI LAST Page 45475 at 0935 All edits/amendments must be made on the electronic document DICTATION DATE: 07/13/19933 SOLE LAYER HAND: AUTUMN 07/13/19933 RPT#: [id number] DC DATE:07/10/19 STATUS: DIS IN [facility] [address] [place] [address] END OF REPORT
== END 2019-07-10 21:32 | disposition home health service (06) | DRG 602 ==
LOC: D.ER 03:45 → D.MS 06:20 → D.ICU 06:20 → D.SDCHOLD 06-29 17:06 → D.MS 06-29 17:07 → D.ICU 07-03 08:01 → D.MS 07-05 16:09
PROVIDERS: Family Medicine; General Practice; Internal Medicine Nephrology; Radiology Diagnostic Radiology; ADMIT Family Medicine; ATTEND Family Medicine
PROC: 0SB Lower Joints, Excision (ICD-10-PCS; principal; 2019-07-04 15:44)
PROC: 05HY33Z Insertion of Infusion Device into Upper Vein, Percutaneous Approach (ICD-10-PCS; 2019-07-10)
DX: L03.115 Cellulitis of right lower limb (principal); J18.1 Lobar pneumonia, unspecified organism; J96.02 Acute respiratory failure with hypercapnia; J96.01 Acute respiratory failure with hypoxia; I50.31 Acute diastolic (congestive) heart failure; E87.1 Hypo-osmolality and hyponatremia; J44.1 Chronic obstructive pulmonary disease with (acute) exacerbation; J81.1 Chronic pulmonary edema; M10.9 Gout, unspecified; K75.9 Inflammatory liver disease, unspecified; J44.9 Chronic obstructive pulmonary disease, unspecified; E66.9 Obesity, unspecified; Z68.39 Body mass index [BMI] 39.0-39.9, adult; N95.9 Unspecified menopausal and perimenopausal disorder; Z72.89 Other problems related to lifestyle; D53.9 Nutritional anemia, unspecified; D50.9 Iron deficiency anemia, unspecified; M46.46 Discitis, unspecified, lumbar region; R53.81 Other malaise; I11.0 Hypertensive heart disease with heart failure

== ENCOUNTER → 2019-07-13 12:02 | Outpatient (CLI) | payer MEDICAID ==
[2019-06-28 13:20] VITALS: BMI 39.5
[~2019-07-13 12:02] MED LIST changes: +AMBIEN10 MG PO; +BETAPACE 120 M120 MG PO; +BUMETANIDE0.5 MG PO; +CARDIZEM60 MG PO; +IPRAT-ALBUT 0.5-3 ML UPD; +PREDNISONE10 MG PO; +REXULTI1 MG PO; +ROCEPHIN 2 GM/D5W 50 IV; +VANCOMYCIN 1.5 GM/NS IV; +ZYLOPRIM300 MG PO
[2019-07-13 12:27] LABS: BASOPHILS 0.1 % (0-2); EOSINOPHILS 0.8 % (0-7); HEMATOCRIT 37.7 % (36.0-48.0); IMMATURE GRANULOCYTES 0.9 % (0-5); LYMPHOCYTES 7.9 % (15-50); MCH 32.4 pg (26.0-34.0); MCHC 31.8 g/dL (31.0-37.0); MCV 101.9 fL (80.0-100.0); MEAN PLATELET VOLUME 12.2 fL (7.4-10.4); MONOCYTES 5.9 % (2-11); NEUTROPHILS 84.4 % (40-80); PLATELET COUNT 157 10x3/uL (130-400); WBC 10.6 10x3/uL (4.8-10.8)
[2019-07-13 12:36] LABS: CREATININE - SERUM 1.2 mg/dL (0.6-1.3); VANCOMYCIN - TROUGH 15.1 ug/mL (10.0-20.0)
== END | disposition home or self-care (01) ==
LOC: D.LABREF 12:02
PROVIDERS: ATTEND Internal Medicine Nephrology
DX: Z51.81 Encounter for therapeutic drug level monitoring (principal)

== ENCOUNTER → 2019-07-17 11:14 | Outpatient (CLI) | payer MEDICAID ==
[2019-06-28 13:20] VITALS: BMI 39.5
[2019-07-17 12:25] LABS: CREATININE - SERUM 1.1 mg/dL (0.6-1.3); UREA NITROGEN 21 mg/dL (7-18); VANCOMYCIN - TROUGH 17.1 ug/mL (10.0-20.0)
[2019-07-17 12:26] LABS: C-REACTIVE PROTEIN < 0.2 mg/dL (0.0-0.9)
[2019-07-17 13:54] LABS: ERYTHROCYTE SEDIMENTATION RATE 17 mm/hr (0-30)
[2019-07-17 13:59] LABS: BASOPHILS 0.3 % (0-2); EOSINOPHILS 1.2 % (0-7); HEMATOCRIT 37.7 % (36.0-48.0); HEMOGLOBIN 12.1 g/dL (12-16); IMMATURE GRANULOCYTES 0.2 % (0-5); LYMPHOCYTES 14.2 % (15-50); MCH 32.2 pg (26.0-34.0); MCHC 32.1 g/dL (31.0-37.0); MCV 100.3 fL (80.0-100.0); MEAN PLATELET VOLUME 12.2 fL (7.4-10.4); MONOCYTES 7.6 % (2-11); NEUTROPHILS 76.5 % (40-80); PLATELET COUNT 162 10x3/uL (130-400); RBC 3.76 10x6/uL (4.00-5.40); WBC 9.7 10x3/uL (4.8-10.8)
== END | disposition home or self-care (01) ==
LOC: D.LABREF 11:14
PROVIDERS: ATTEND Neurological Surgery
DX: L03.115 Cellulitis of right lower limb (principal)

== ENCOUNTER → 2019-07-24 10:27 | Outpatient (CLI) | payer MEDICAID ==
[2019-06-28 13:20] VITALS: BMI 39.5
[2019-07-24 11:06] LABS: BASOPHILS 0.1 % (0-2); EOSINOPHILS 1.6 % (0-7); HEMATOCRIT 35.9 % (36.0-48.0); HEMOGLOBIN 11.6 g/dL (12-16); IMMATURE GRANULOCYTES 0.1 % (0-5); LYMPHOCYTES 11.5 % (15-50); MCH 32.3 pg (26.0-34.0); MCHC 32.3 g/dL (31.0-37.0); MEAN PLATELET VOLUME 12.9 fL (7.4-10.4); NEUTROPHILS 80.7 % (40-80); RBC 3.59 10x6/uL (4.00-5.40); RDW 14.2 % (11.5-14.5); WBC 7.5 10x3/uL (4.8-10.8)
[2019-07-24 11:09] LABS: PLATELET COUNT 88 10x3/uL (130-400)
[2019-07-24 12:01] LABS: ERYTHROCYTE SEDIMENTATION RATE 21 mm/hr (0-30)
[2019-07-24 13:07] LABS: PLATELET ESTIMATE DECREASED
[2019-07-24 13:10] LABS: ROULEAUX OCC
== END | disposition home or self-care (01) ==
LOC: D.LABREF 10:27
PROVIDERS: ATTEND Neurological Surgery
DX: L03.115 Cellulitis of right lower limb (principal)

== ENCOUNTER → 2019-07-31 10:56 | Outpatient (CLI) | payer MEDICAID ==
[2019-06-28 13:20] VITALS: BMI 39.5
[2019-07-31 11:11] LABS: BASOPHILS 0.2 % (0-2); EOSINOPHILS 4.8 % (0-7); HEMATOCRIT 36.9 % (36.0-48.0); HEMOGLOBIN 11.8 g/dL (12-16); IMMATURE GRANULOCYTES 0.2 % (0-5); LYMPHOCYTES 15.6 % (15-50); MCH 32.2 pg (26.0-34.0); MCV 100.5 fL (80.0-100.0); MONOCYTES 11.9 % (2-11); NEUTROPHILS 67.3 % (40-80); RBC 3.67 10x6/uL (4.00-5.40); RDW 14.8 % (11.5-14.5); WBC 5.1 10x3/uL (4.8-10.8)
[2019-07-31 11:27] LABS: PLATELET COUNT 139 10x3/uL (130-400)
[2019-07-31 11:32] LABS: C-REACTIVE PROTEIN 0.8 mg/dL (0.0-0.9); CREATININE - SERUM 1.6 mg/dL (0.6-1.3); VANCOMYCIN - TROUGH 16.5 ug/mL (10.0-20.0)
[2019-07-31 13:03] LABS: ERYTHROCYTE SEDIMENTATION RATE 15 mm/hr (0-30)
== END | disposition home or self-care (01) ==
LOC: D.LABREF 10:56
PROVIDERS: ATTEND Family Medicine
DX: L03.115 Cellulitis of right lower limb (principal); J44.9 Chronic obstructive pulmonary disease, unspecified

== ENCOUNTER → 2019-08-07 09:49 | Outpatient (CLI) | payer MEDICAID ==
[2019-06-28 13:20] VITALS: BMI 39.5
[2019-08-07 10:36] LABS: BASOPHILS 0.2 % (0-2); EOSINOPHILS 2.2 % (0-7); HEMATOCRIT 36.5 % (36.0-48.0); HEMOGLOBIN 11.8 g/dL (12-16); IMMATURE GRANULOCYTES 0.2 % (0-5); LYMPHOCYTES 21.3 % (15-50); MCH 32.9 pg (26.0-34.0); MCHC 32.3 g/dL (31.0-37.0); MCV 101.7 fL (80.0-100.0); MEAN PLATELET VOLUME 12.4 fL (7.4-10.4); MONOCYTES 15.5 % (2-11); NEUTROPHILS 60.6 % (40-80); PLATELET COUNT 139 10x3/uL (130-400); RBC 3.59 10x6/uL (4.00-5.40); RDW 15.5 % (11.5-14.5); WBC 5.4 10x3/uL (4.8-10.8)
[2019-08-07 11:03] LABS: C-REACTIVE PROTEIN 2.9 mg/dL (0.0-0.9); CREATININE - SERUM 1.3 mg/dL (0.6-1.3); VANCOMYCIN - TROUGH 21.1 ug/mL (10.0-20.0)
[2019-08-07 11:56] LABS: ERYTHROCYTE SEDIMENTATION RATE 18 mm/hr (0-30)
== END | disposition home or self-care (01) ==
LOC: D.LABREF 09:49
PROVIDERS: ATTEND Emergency Medicine
DX: L03.115 Cellulitis of right lower limb (principal)

== ENCOUNTER → 2019-08-14 11:57 | Outpatient (CLI) | payer MEDICAID ==
[2019-06-28 13:20] VITALS: BMI 39.5
[2019-08-14 12:13] LABS: BASOPHILS 0.2 % (0-2); EOSINOPHILS 2.8 % (0-7); HEMATOCRIT 36.9 % (36.0-48.0); HEMOGLOBIN 12.2 g/dL (12-16); IMMATURE GRANULOCYTES 0.2 % (0-5); MCH 32.3 pg (26.0-34.0); MCHC 33.1 g/dL (31.0-37.0); MCV 97.6 fL (80.0-100.0); MEAN PLATELET VOLUME 12.3 fL (7.4-10.4); MONOCYTES 13.2 % (2-11); NEUTROPHILS 63.6 % (40-80); PLATELET COUNT 166 10x3/uL (130-400); RBC 3.78 10x6/uL (4.00-5.40); RDW 14.4 % (11.5-14.5)
[2019-08-14 12:33] LABS: C-REACTIVE PROTEIN 0.7 mg/dL (0.0-0.9); CREATININE - SERUM 1.5 mg/dL (0.6-1.3); VANCOMYCIN - TROUGH 24.2 ug/mL (10.0-20.0)
[2019-08-14 13:19] LABS: ERYTHROCYTE SEDIMENTATION RATE 14 mm/hr (0-30)
== END | disposition home or self-care (01) ==
LOC: D.LABREF 11:57
PROVIDERS: ATTEND Neurological Surgery
DX: L03.115 Cellulitis of right lower limb (principal)

== ENCOUNTER → 2019-08-18 10:29 | Outpatient (CLI) | payer MEDICAID ==
[2019-06-28 13:20] VITALS: BMI 39.5
[2019-08-18 10:45] LABS: BASOPHILS 0.4 % (0-2); EOSINOPHILS 2.4 % (0-7); HEMATOCRIT 38.8 % (36.0-48.0); HEMOGLOBIN 13.1 g/dL (12-16); IMMATURE GRANULOCYTES 0.2 % (0-5); LYMPHOCYTES 16.9 % (15-50); MCH 32.8 pg (26.0-34.0); MCHC 33.8 g/dL (31.0-37.0); MCV 97.2 fL (80.0-100.0); MEAN PLATELET VOLUME 12.3 fL (7.4-10.4); MONOCYTES 11.5 % (2-11); NEUTROPHILS 68.6 % (40-80); PLATELET COUNT 198 10x3/uL (130-400); RBC 3.99 10x6/uL (4.00-5.40); RDW 14.7 % (11.5-14.5); WBC 5.4 10x3/uL (4.8-10.8)
[2019-08-18 11:08] LABS: C-REACTIVE PROTEIN 0.4 mg/dL (0.0-0.9); CREATININE - SERUM 1.4 mg/dL (0.6-1.3); VANCOMYCIN - TROUGH 24.8 ug/mL (10.0-20.0)
[2019-08-18 12:44] LABS: ERYTHROCYTE SEDIMENTATION RATE 5 mm/hr (0-30)
== END | disposition home or self-care (01) ==
LOC: D.LABREF 10:29
PROVIDERS: ATTEND Neurological Surgery
DX: L03.115 Cellulitis of right lower limb (principal)

== ENCOUNTER → 2019-08-21 11:11 | Outpatient (CLI) | payer MEDICAID ==
[2019-06-28 13:20] VITALS: BMI 39.5
[2019-08-21 11:47] LABS: BASOPHILS 0.5 % (0-2); EOSINOPHILS 3.2 % (0-7); HEMATOCRIT 39.4 % (36.0-48.0); HEMOGLOBIN 13.2 g/dL (12-16); IMMATURE GRANULOCYTES 0.2 % (0-5); LYMPHOCYTES 19.2 % (15-50); MCH 33.5 pg (26.0-34.0); MCHC 33.5 g/dL (31.0-37.0); MEAN PLATELET VOLUME 12.1 fL (7.4-10.4); MONOCYTES 12.5 % (2-11); NEUTROPHILS 64.4 % (40-80); PLATELET COUNT 184 10x3/uL (130-400); RBC 3.94 10x6/uL (4.00-5.40); RDW 15.3 % (11.5-14.5); WBC 5.7 10x3/uL (4.8-10.8)
[2019-08-21 12:20] LABS: CREATININE - SERUM 1.4 mg/dL (0.6-1.3); VANCOMYCIN - TROUGH 18.3 ug/mL (10.0-20.0)
[2019-08-21 12:21] LABS: C-REACTIVE PROTEIN 0.2 mg/dL (0.0-0.9)
[2019-08-21 13:15] LABS: ERYTHROCYTE SEDIMENTATION RATE 7 mm/hr (0-30)
== END | disposition home or self-care (01) ==
LOC: D.LABREF 11:11
PROVIDERS: ATTEND Neurological Surgery
DX: L03.115 Cellulitis of right lower limb (principal)

== ENCOUNTER → 2019-08-28 12:10 | Outpatient (CLI) | payer MEDICAID ==
[2019-06-28 13:20] VITALS: BMI 39.5
[2019-08-28 12:41] LABS: C-REACTIVE PROTEIN 2.1 mg/dL (0.0-0.9); CREATININE - SERUM 1.4 mg/dL (0.6-1.3); VANCOMYCIN - TROUGH 18.8 ug/mL (10.0-20.0)
[2019-08-28 13:40] LABS: ERYTHROCYTE SEDIMENTATION RATE 9 mm/hr (0-30)
[2019-08-28 13:43] LABS: BASOPHILS 0.3 % (0-2); EOSINOPHILS 3.6 % (0-7); HEMATOCRIT 37.7 % (36.0-48.0); HEMOGLOBIN 12.5 g/dL (12-16); IMMATURE GRANULOCYTES 0.2 % (0-5); LYMPHOCYTES 15.8 % (15-50); MCH 33.3 pg (26.0-34.0); MCHC 33.2 g/dL (31.0-37.0); MCV 100.5 fL (80.0-100.0); MEAN PLATELET VOLUME 12.4 fL (7.4-10.4); MONOCYTES 10.7 % (2-11); NEUTROPHILS 69.4 % (40-80); RBC 3.75 10x6/uL (4.00-5.40); RDW 16.1 % (11.5-14.5); WBC 6.7 10x3/uL (4.8-10.8)
[2019-08-28 13:46] LABS: PLATELET COUNT 116 10x3/uL (130-400)
== END | disposition home or self-care (01) ==
LOC: D.LABREF 12:10
PROVIDERS: ATTEND Neurological Surgery
DX: L03.115 Cellulitis of right lower limb (principal)

== ENCOUNTER → 2019-09-22 08:21 | Outpatient (CLI) | payer OTHER ==
[2019-06-28 13:20] VITALS: BMI 39.5
== END | disposition home or self-care (01) ==
LOC: D.MRI 08:21
PROVIDERS: ATTEND Neurological Surgery
DX: M46.46 Discitis, unspecified, lumbar region (principal)

== ENCOUNTER 2019-10-18 10:23 | Inpatient (IN) | payer OTHER ==
[~2019-10-18] VITALS: Ht 162.6 cm; Wt 111.5 kg
[~2019-10-18 10:23] MED LIST changes: +ALBUTEROL SULF8.5 GM INH; +COLCRYS0.6 MG PO; +LEVOFLOXACIN500 MG PO; +MUCINEX600 MG PO; +PHENERGAN25 M1 PO
--- NOTE | 2019-10-18 10:40 | NUR ---
PATIENT PLACED ON BI-PAP PER DR. PRECIADO
[2019-10-18 10:47] LABS: BASOPHILS 0 % (0-2); EOSINOPHILS 0.6 % (0-7); HEMATOCRIT 46.5 % (36.0-48.0); HEMOGLOBIN 15.4 g/dL (12-16); IMMATURE GRANULOCYTES 0.4 % (0-5); LYMPHOCYTES 20.9 % (15-50); MCHC 33.1 g/dL (31.0-37.0); MCV 99.6 fL (80.0-100.0); MEAN PLATELET VOLUME 11.5 fL (7.4-10.4); MONOCYTES 15.5 % (2-11); NEUTROPHILS 62.6 % (40-80); PLATELET COUNT 67 10x3/uL (130-400); RBC 4.67 10x6/uL (4.00-5.40); RDW 13.4 % (11.5-14.5); WBC 4.8 10x3/uL (4.8-10.8)
[2019-10-18 10:50] LABS: APTT 21.8 SECONDS (22.8-39.4); INR 1.05 (0.85-1.17); PROTIME 13.6 SECONDS (11.6-15.0)
[2019-10-18 10:52] LABS: CALC OSMOLALITY 288 mosm/kg (275-300); CALCIUM 8.3 mg/dL (8.5-10.1); CARBON DIOXIDE 29.5 mmol/L (21.0-32.0); CHLORIDE - SERUM 106 mmol/L (98-107); CREATININE - SERUM 1.3 mg/dL (0.6-1.3); SODIUM 142 mmol/L (136-145); UREA NITROGEN 28 mg/dL (7-18); eGFR NON AFRICAN AMERICAN 44 mL/min (90-120)
[2019-10-18 10:55] LABS: GLUCOSE 92 mg/dL (74-106)
[2019-10-18] MEDS ORDERED: LEVOFLOXACIN500 MG PO (10:56)
[2019-10-18 11:04] LABS: ALBUMIN 2.9 g/dL (3.4-5.0); ALKALINE PHOSPHATASE 71 U/L (30-120); ALT (SGPT) 93 U/L (10-68); BILIRUBIN - TOTAL 0.29 mg/dL (0.2-1.3); CKMB 0.7 U/L (0.0-3.6); CREATINE KINASE 91 UL (21-215); PRO BNP 8378 pg/mL (0-125); PROTEIN - SERUM 6.4 g/dL (6.4-8.2)
[2019-10-18 11:07] LABS: TROPONIN-I < 0.017 ng/mL (0.000-0.060)
--- NOTE | 2019-10-18 11:30 | NUR ---
PATIENT HEART RATE IN 40s, DR. SANCHEZ NOTIFIED, NO CHANGES OR ORDERS
[2019-10-18 12:00] VITALS: BP 107/63
--- NOTE | 2019-10-18 12:35 | NUR ---
R/T AT BEDSIDE FOR REPEAT ABG, PATIENT TAKEN OFF BI-PAP PER DR. PRECIADO
[2019-10-18 13:10] LABS: PLATELET ESTIMATE DECREASED
[2019-10-18 13:12] LABS: ROULEAUX OCC
[2019-10-18 14:00] VITALS: BP 114/76
[2019-10-18 16:00] VITALS: BP 130/74
[2019-10-18 18:00] VITALS: BP 145/87
--- NOTE | 2019-10-18 20:19 | NUR ---
PT ASSISTED UP TO BEDSIDE COMMODE, TOLERATED WELL.
[2019-10-18 21:00] VITALS: BP 166/95
--- NOTE | 2019-10-18 21:20 | NUR ---
RT AT PT'S BEDSIDE TO ADMINISTER DUONEB TREATMENT.
--- NOTE | 2019-10-18 23:10 | NUR ---
PT GIVEN CRACKERS AND ICE CHIPS. CALL LIGHT WITHIN REACH, WILL CONTINUE TO MONITOR.
[2019-10-18 23:20] VITALS: BP 164/93
--- NOTE | 2019-10-19 01:25 | NUR ---
PT AMBULATED TO RESTROOM WITH NURSE ASSISTANCE.
[2019-10-19 01:49] LABS: CKMB 0.7 U/L (0.0-3.6); CREATINE KINASE 46 UL (21-215); TROPONIN-I < 0.017 ng/mL (0.000-0.060)
--- NOTE | 2019-10-19 05:05 | NUR ---
RECEIVED PATIENT TO ICU BED 2304 ACCOMPANIED BY ED RN. MONITORS CONNECTED TO PATIENT WITH ALARMS SET. VSS. ASSESSMENT COMPLETED PER FLOW SHEET WITH NO ACUTE DISTRESS OBSERVED. ORIENTED TO UNIT. CALL LIGHT PLACED IN REACH AND ABLE TO UTILIZE TO MAKE NEEDS KNOWN.
[2019-10-19 05:42] VITALS: BP 204/105; BMI 42.3
[2019-10-19 06:00] VITALS: BP 195/129
[2019-10-19 07:00] VITALS: BP 190/122
--- NOTE | 2019-10-19 07:30 | NUR ---
REPORT RECIEVED. PT SITTING UP IN BED. RR EVEN AND UNLABORED ON 2.5 L NC. PT HAS A L FA PIV INFUSING A BANANA BAG @ 125. BED LOCKED AND IN LOWEST POSITION, CALL LIGHT WITHIN REACH. WILL CTM
--- NOTE | 2019-10-19 07:32 | NUR ---
DR. BENITEZ PAGED AT THIS TIME TO INFORM OF CONSULT.
[2019-10-19 08:01] LABS: CKMB 0.6 U/L (0.0-3.6); CREATINE KINASE 171 UL (21-215); TROPONIN-I < 0.017 ng/mL (0.000-0.060)
[2019-10-19 09:30] VITALS: Ht 162.6 cm; Wt 111.5 kg
--- NOTE | 2019-10-19 10:48 | MORECARE ---
CASE MANAGEMENT DISCHARGE SUMMARY PATIENT: OBI LAST UNIT: [id number] ADM DATE: 10/18/19 AGE: 59 : 58 SEX: F ROOM/BED: D.2304 AUTHOR: JANEL,DOC PHYSICIAN: REFERRING PHYSICIAN: PALOMO COHN MD DATE OF SERVICE: 10/19/19 Discharge Plan Patient Name: OBI LAST Facility: [facility]:[place] : 1960 Planned Disposition: Anticipated Discharge Date: Discharge Date: Expected LOS: Initial Reviewer: [email or web address] Initial Review Date: 10/19/2019 Generated: 10/19/19 11:48 am Comments DCP- Discharge Planning Updated by [email or web address]: Jeanne Noguera on 10/18/19 12:[address] CM met with patient to discuss initial discharge planning. Patient is in agreement to proceed with the assessment. Patient reports that she lives at home partially dependent with her spouse. Patient is alert/oriented. Stairs/steps: 0. PCP: Dr. Cornelius Arreola. Pharmacy: [facility]. Patient states she has been able to obtain all of her prescribed medications. HHS: [facility]. DME: Home O2, UD, RE, BSC. DME provider: [facility]. Patient gives permission to speak with family members/care givers. Emergency contact: Barrera Last (spouse) [phone]. Patient is Partial with all ADL's. Medication management per . CM discussed the availability of HH, Rehab, DME services. Patient denies the need for additional services at this time and feels safe returning to previous environment. Patient was hospitalized within the past 30 days. 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 Transportation at time of discharge: [facility]. CM will require an order to resume HHS upon discharge. CM will assist PRN with further DC plans/needs. DCPIA - Discharge Planning Initial Assessment Updated by [email or web address]: Jeanne Noguera on 10/19/19 10:48 am * Is the patient Alert and Oriented? Yes * How many steps to enter\exit or inside your home? * PCP Dr. Cornelius Arreola * Pharmacy [facility] * Preadmission Environment Home with Family * ADLs Partial Dependent * Partial ADLs (Assistance needed) Bathing Medication Management * Equipment Bedside Commode Oxygen Rolling Walker * Other Equipment NA * List name and contact numbers for known caregivers / representatives who currently or will assist patient after discharge: [facility]ee * Verbal permission to speak to the caregivers and representatives has been obtained from the patient. Yes * Community resources currently utilized Home Health * Please name any agencies selected above. [facility] * Additional services required to return to the preadmission environment? Yes * Can the patient safely return to the preadmission environment? Yes * Has this patient been hospitalized within the prior 30 days at any hospital? Yes Patient Name: OBI LAST Page [id number] at 1048 All edits/amendments must be made on the electronic document DICTATION DATE: 10/19/198 U.S. SENATOR: AUTUMN 10/19/19 1048 RPT#: [id number] DC DATE: STATUS: ADM IN [facility] [address] [place] [address] END OF REPORT
[2019-10-19 11:00] VITALS: BP 166/104
[2019-10-19 15:00] VITALS: BP 164/100
[2019-10-19 15:31] LABS: CKMB 1.2 U/L (0.0-3.6); CREATINE KINASE 42 UL (21-215)
[2019-10-19 15:32] LABS: TROPONIN-I < 0.017 ng/mL (0.000-0.060)
--- NOTE | 2019-10-19 19:00 | NUR ---
BEDSIDE REPORT RECEIVED, PT CARE ASSUMED. INTRODUCED SELF AND WROTE NAME ON BOARD. PT SITTING UP IN BED, WATCHING TV, AAOX4. AFVSS. DENIES ANY NEEDS AT THIS TIME. BED IN LOWEST POSITION, SR X2, CALL LIGHT WITHIN REACH. WILL CONTINUE TO MONITOR.
[2019-10-19 23:00] VITALS: BP 178/118
[2019-10-20 03:00] VITALS: BP 160/108
[2019-10-20 04:25] LABS: BASOPHILS 0 % (0-2); EOSINOPHILS 0 % (0-7); HEMATOCRIT 43.2 % (36.0-48.0); HEMOGLOBIN 14.7 g/dL (12-16); IMMATURE GRANULOCYTES 0.5 % (0-5); LYMPHOCYTES 6.5 % (15-50); MCH 32.7 pg (26.0-34.0); MCV 96.2 fL (80.0-100.0); MEAN PLATELET VOLUME 11.8 fL (7.4-10.4); MONOCYTES 7.2 % (2-11); NEUTROPHILS 85.8 % (40-80); PLATELET COUNT 73 10x3/uL (130-400); RBC 4.49 10x6/uL (4.00-5.40); WBC 6.1 10x3/uL (4.8-10.8)
[2019-10-20 04:26] LABS: PLATELET ESTIMATE DECREASED
[2019-10-20 04:29] LABS: ANION GAP 8.3 mmol/L (8-16); BILIRUBIN - TOTAL 0.3 mg/dL (0.2-1.3); CALCIUM 8.4 mg/dL (8.5-10.1); CARBON DIOXIDE 31.4 mmol/L (21.0-32.0); CREATININE - SERUM 1.6 mg/dL (0.6-1.3); MAGNESIUM - SERUM 2.4 mg/dL (1.8-2.4); POTASSIUM - SERUM 3.7 mmol/L (3.5-5.1); PROTEIN - SERUM 6.7 g/dL (6.4-8.2)
[2019-10-20 07:00] VITALS: BP 148/105
--- NOTE | 2019-10-20 07:00 | NUR ---
BEDSIDE REPORT RECEIVED. PT ASKED FOR ME TO TIE HER GOWN IN THE BACK, INFORMED PT THAT I WOULD DO THAT AFTER I ASSESSED HER AND THEN PT REACHED BEHIND HER HEAD AND TIED THE GOWN BY HERSELF. ENCOURAGED PT TO TRY DO TO THINGS HERSELF, PT VERABILZED UNDERSTANDING. WILL CONT TO MONITOR.
--- NOTE | 2019-10-20 09:00 | NUR ---
0900 MEDICATIONS GIVEN. NO ACUTE NEEDS OR DISTRESS NOTED AT THIS TIME. WILL CONT TO MONITOR.
[2019-10-20 11:00] VITALS: BP 165/101
--- NOTE | 2019-10-20 11:00 | NUR ---
REASSESSMENT COMPLETED PER FLOWSHEET, SEE FLOWSHEET FOR INFORMATION. SPOKE WITH NEW ORDERS RECEIVED. WILL CONT TO MONITOR.
--- NOTE | 2019-10-20 13:00 | NUR ---
NEW ORDERS RECEIVED. INFORMED PT. NO ACUTE NEEDS OR DISTRESS NOTED AT THIS TIME. WILL CONT TO MONITOR.
--- NOTE | 2019-10-20 14:36 | EC ---
PATIENT:OBI RODRÍGUEZ DATE OF SERVICE: 10/18/19 SEX: F MEDICAL RECORD: [id number] DATE OF : 58 LOCATION:[facility] AGE OF PATIENT: 59 ADMISSION DATE: 10/18/19 REFERRING PHYSICIAN: INTERPRETING PHYSICIAN: AIDEN ORR MD ECHOCARDIOGRAM REPORT ECHO CHARGES 4 ECHO COMPLETE Date: 10/18/19 CLINICAL DIAGNOSIS: CHF ECHOCARDIOGRAPHIC MEASUREMENTS (adult normal given) AC root (d.<3.7cm) 2.5 cm LV Septum d (<1.2 cm> 1.1 cm Valve Excursion 0.9 cm LV Septum (systole) 1.8 cm Left Atria (s.<4.0cm> 5.0 cm LVPW d(<1.2cm) 1.1 cm RV (d.<2.3cm) 3.2 cm LVPW (sytole) 1.7 cm LV diastole(<5.6CM) 3.9 cm MV E-F(>70mm/sec) cm LV systole 2.2 cm LVOT Diameter 1.7 cm MV exc.(>10mm) cm Est.ejection fraction (50-75%) % DOPPLER: LVIT cm/sec A cm/sec E 132 cm/sec LA cm/sec RVSP 25.0 mmHg LVOT 103 cm/sec AOP1/2T m/s Asc. Ao 138 cm/sec RVOT 74.0 cm/sec RA cm/sec PA 68.0 cm/sec AV Gradient Peak 7.6 mmHg AV Mean 3.9 mmHg AV Area 1.6 cm MV Gradient Peak 7.6 mmHg MV Mean 2.5 mmHg MV Area cm COMMENTS: Author Agent: Ramses STARROE Rehabilitation Liaison: 1 Dr. Orr TAPE# PACS Pericardial Effusion N DATE OF SERVICE: 10/18/2019 PROCEDURE: Echocardiogram. FINDINGS: 1. Left ventricular chamber size is within normal limits. Left ventricular systolic function is normal at 55%. 2. Left atrium is enlarged at 5.0 cm. Right atrium and right ventricular chamber sizes are as well mildly dilated. 3. Valvular structures have normal structure and motion. ECHOCARDIOGRAM REPORT [id number] OBI RODRÍGUEZ 4. Doppler interrogation reveals mild mitral regurgitation, trace tricuspid regurgitation, no other valvular insufficiency or stenosis. Pulmonary systolic pressure estimated at 25 mmHg. 5. No evidence of pericardial effusion or left ventricular thrombus. TRANSINT:[id number] Voice Confirmation ID: [id number] DOCUMENT ID: [id number] AIDEN ORR MD at 1436 CC: [id number] DICTATION DATE: 10/18/19 1542 HOSPITAL SUPERVISOR: 10/18/19 1653 ADM IN [facility] [address] [place] [id number]
[2019-10-20 15:00] VITALS: BP 144/81
--- NOTE | 2019-10-20 18:00 | NUR ---
REPORT CALLED TO MED SURG. TRANSFERRING TO ROOM 2232, WILL GO BY WHEEL CHAIR. WILL CONT TO MONITOR.L
[2019-10-20 20:00] VITALS: BP 180/102
--- NOTE | 2019-10-20 20:00 | NUR ---
PATIENT SITTING UP IN BED AND WATCHING TV. NO S/S OF ACUTE DISTRESS. NO C/O AT THIS TIME. PATIENT HAS A RIGHT UPPER ARM MIDLINE WITH BANANA BAG. MIDLINE DRESSING IS INTACT ON PATIENT'S SKIN. PATIENT IS ON THE WAIT LIST FOR TELEMETRY. PATIENT IS ON 2L OF 02. PATIENT IS ON DROPLET PRECAUTIONS FOR FLU TYPE A. CALL LIGHT IN PLACE. WILL CONTINUE TO MONITOR.
--- NOTE | 2019-10-20 20:12 | MORECARE ---
CASE MANAGEMENT DISCHARGE SUMMARY PATIENT: OBI LAST UNIT: [id number] ADM DATE: 10/18/19 AGE: 59 : 58 SEX: F ROOM/BED: D.2232 AUTHOR: JANEL,DOC PHYSICIAN: REFERRING PHYSICIAN: PALOMO COHN MD DATE OF SERVICE: 10/20/19 Discharge Plan Patient Name: OBI LAST Facility: [facility]:[place] : 1960 Planned Disposition: Anticipated Discharge Date: Discharge Date: Expected LOS: Initial Reviewer: [email or web address] Initial Review Date: 10/19/2019 Generated: 10/20/19 9:11 pm DCP- Discharge Planning Updated by [email or web address]: Jeanne Noguera on 10/18/19 12:[address] CM met with patient to discuss initial discharge planning. Patient is in agreement to proceed with the assessment. Patient reports that she lives at home partially dependent with her spouse. Patient is alert/oriented. Stairs/steps: 0. PCP: Dr. Cornelius Arreola. [facility]acy: [facility]. Patient states she has been able to obtain all of her prescribed medications. HHS: [facility]. DME: Home O2, UD, RE, BSC. DME provider: Mee. Patient gives permission to speak with family members/care givers. Emergency contact: Barrera Last (spouse) [phone]. Patient is Partial with all ADL's. Medication management per . CM discussed the availability of HH, Rehab, DME services. Patient denies the need for additional services at this time and feels safe returning to previous environment. Patient was hospitalized within the past 30 days. 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 Transportation at time of discharge: [place] Last. CM will require an order to resume HHS upon discharge. CM will assist PRN with further DC plans/needs. DCPIA - Discharge Planning Initial Assessment Updated by [id number]: Jeanne Noguera on 10/19/19 10:48 am * Is the patient Alert and Oriented? Yes * How many steps to enter\exit or inside your home? * PCP Dr. Cornelius Arreola * Pharmacy [facility] * Preadmission Environment Home with Family * ADLs Partial Dependent * Partial ADLs (Assistance needed) Bathing Medication Management * Equipment Bedside Commode Oxygen Rolling Walker * Other Equipment NA * List name and contact numbers for known caregivers / representatives who currently or will assist patient after discharge: Mee * Verbal permission to speak to the caregivers and representatives has been obtained from the patient. Yes * Community resources currently utilized Home Health * Please name any agencies selected above. [facility] * Additional services required to return to the preadmission environment? Yes * Can the patient safely return to the preadmission environment? Yes * Has this patient been hospitalized within the prior 30 days at any hospital? Yes Coverage Notice Reviewer: [email or web address] Tori Yeager Notice Issued Date-Time: 10/20/2019 11:34 Notice Type: Patient Choice Letter Notice Delivered To: Patient Relationship to Patient: Self Wild Animal Caretaker Name: Delivery Method: - Kayce Days: Prior Verbal Notification: Recipient Understood Notice: Recipient Signature: Med Rec Note Co-signed by Attending: Coverage Notice Comment: Last DP export: 10/19/19 9:48 a Patient Name: OBI LAST Page [id number] at 2012 All edits/amendments must be made on the electronic document DICTATION DATE: 10/20/192010 RESPIRATORY THERAPY INSTRUCTOR: AUTUMN 10/20/192010 RPT#: [id number] DC DATE: STATUS: ADM IN [facility] [address] [place] [address] END OF REPORT
--- NOTE | 2019-10-20 20:19 | MORECARE ---
CASE MANAGEMENT DISCHARGE SUMMARY PATIENT: OBI LAST UNIT: [id number] ADM DATE: 10/18/19 AGE: 59 : 58 SEX: F ROOM/BED: D.2232 AUTHOR: JANELDOC PHYSICIAN: REFERRING PHYSICIAN: PALOMO COHN MD DATE OF SERVICE: 10/20/19 Discharge Plan Patient Name: OBI LAST Facility: [facility]:[place] : 1960 Planned Disposition: Home with Home Health Anticipated Discharge Date: Discharge Date: Expected LOS: Initial Reviewer: [email or web address] Initial Review Date: 10/19/2019 Generated: 10/20/19 9:19 pm DCP- Discharge Planning Updated by [id number]: Jeanne Noguera on 10/18/19 12:[address] CM met with patient to discuss initial discharge planning. Patient is in agreement to proceed with the assessment. Patient reports that she lives at home partially dependent with her spouse. Patient is alert/oriented. Stairs/steps: 0. PCP: Dr. Cornelius Arreola. Pharmacy: [facility]. Patient states she has been able to obtain all of her prescribed medications. HHS: [facility]. DME: Home O2, UD, RE, BSC. DME provider: Mee. Patient gives permission to speak with family members/care givers. Emergency contact: Barrera Last (spouse) [phone]. Patient is Partial with all ADL's. Medication management per . CM discussed the availability of HH, Rehab, DME services. Patient denies the need for additional services at this time and feels safe returning to previous environment. Patient was hospitalized within the past 30 days. 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 Transportation at time of discharge: [facility]ob[place] Last. CM will require an order to resume HHS upon discharge. CM will assist PRN with further DC plans/needs. DCPIA - Discharge Planning Initial Assessment Updated by [email or web address]: Jeanne Noguera on 10/19/19 10:48 am * Is the patient Alert and Oriented? Yes * How many steps to enter\exit or inside your home? * PCP Dr. Cornelius Arreola * Pharmacy [facility] * Preadmission Environment Home with Family * ADLs Partial Dependent * Partial ADLs (Assistance needed) Bathing Medication Management * Equipment Bedside Commode Oxygen Rolling Walker * Other Equipment NA * List name and contact numbers for known caregivers / representatives who currently or will assist patient after discharge: Mee * Verbal permission to speak to the caregivers and representatives has been obtained from the patient. Yes * Community resources currently utilized Home Health * Please name any agencies selected above. [facility] * Additional services required to return to the preadmission environment? Yes * Can the patient safely return to the preadmission environment? Yes * Has this patient been hospitalized within the prior 30 days at any hospital? Yes Coverage Notice Reviewer: [id number] - Sarah Yeager Notice Issued Date-Time: 10/20/2019 11:34 Notice Type: Patient Choice Letter Notice Delivered To: Patient Relationship to Patient: Self Environmental Aid Name: Delivery Method: HAND - Hand Delivered Kayce Days: Prior Verbal Notification: Recipient Understood Notice: Yes Recipient Signature: Yes Med Rec Note Co-signed by Attending: Coverage Notice Comment: resume care with [facility] Last DP export: 10/20/19 7:12 p Patient Name: OBI LAST Page [id number] at 2019 All edits/amendments must be made on the electronic document DICTATION DATE: 10/20/192018 CAGE CASHIER: AUTUMN 10/20/19 2019 RPT#: [id number] DC DATE: STATUS: ADM IN [facility] [address] [place] [address] END OF REPORT
--- NOTE | 2019-10-21 01:58 | NUR ---
I have reviewed this patient and I concur with the Shift Assessment completed by the Licensed Practical Nurse today this shift.
[2019-10-21 06:11] LABS: BASOPHILS 0 % (0-2); EOSINOPHILS 0 % (0-7); HEMATOCRIT 41.2 % (36.0-48.0); HEMOGLOBIN 13.5 g/dL (12-16); IMMATURE GRANULOCYTES 1.1 % (0-5); LYMPHOCYTES 8.2 % (15-50); MCH 32.1 pg (26.0-34.0); MCHC 32.8 g/dL (31.0-37.0); MCV 98.1 fL (80.0-100.0); MEAN PLATELET VOLUME 11.4 fL (7.4-10.4); MONOCYTES 4.1 % (2-11); NEUTROPHILS 86.6 % (40-80); PLATELET COUNT 87 10x3/uL (130-400); RDW 13.3 % (11.5-14.5); WBC 4.6 10x3/uL (4.8-10.8)
[2019-10-21 06:31] LABS: ALBUMIN 2.9 g/dL (3.4-5.0); ANION GAP 11.2 mmol/L (8-16); BILIRUBIN - TOTAL 0.31 mg/dL (0.2-1.3); CALCIUM 8.2 mg/dL (8.5-10.1); CARBON DIOXIDE 28.3 mmol/L (21.0-32.0); CREATININE - SERUM 1.6 mg/dL (0.6-1.3); MAGNESIUM - SERUM 2.5 mg/dL (1.8-2.4); POTASSIUM - SERUM 3.5 mmol/L (3.5-5.1); PROTEIN - SERUM 6.4 g/dL (6.4-8.2)
[2019-10-21 07:19] LABS: PLATELET ESTIMATE DECREASED
[2019-10-21 08:45] VITALS: BP 161/82
[2019-10-21 12:45] VITALS: BP 159/97
[2019-10-21 16:45] VITALS: BP 150/93
[2019-10-21 20:00] VITALS: BP 172/100
--- NOTE | 2019-10-21 20:00 | NUR ---
PATIENT RESTING IN BED WITH EYES CLOSED. NO S/S OF ACUTE DISTRESS. NO C/O AT THIS TIME. PATIENT IS ON 3L OO2. PATIENT HAS A RIGHT UPPER MIDLINE IV WITH NVI @ 125 ML/HR. PATIENT IS ORDERED TO HAVE TELEMETRY, AND IS CURRENTLY ON THE WAIT LIST. PATIENT IS ON DROPLET ISOLATION FOR THE FLU. CALL LIGHT IN PLACE. WILL CONTINUE TO MONITOR.
[2019-10-22] VITALS: BP 110/56
--- NOTE | 2019-10-22 01:48 | NUR ---
I have reviewed this patient and I concur with the Shift Assessment completed by the Licensed Practical Nurse today this shift.
[2019-10-22 04:00] VITALS: BP 137/70
[2019-10-22 06:18] LABS: BASOPHILS 0 % (0-2); EOSINOPHILS 0 % (0-7); HEMATOCRIT 41.6 % (36.0-48.0); HEMOGLOBIN 13.6 g/dL (12-16); IMMATURE GRANULOCYTES 2.1 % (0-5); LYMPHOCYTES 5.4 % (15-50); MCH 32.5 pg (26.0-34.0); MCHC 32.7 g/dL (31.0-37.0); MCV 99.3 fL (80.0-100.0); MEAN PLATELET VOLUME 11.1 fL (7.4-10.4); MONOCYTES 7.1 % (2-11); NEUTROPHILS 85.4 % (40-80); PLATELET COUNT 101 10x3/uL (130-400); RBC 4.19 10x6/uL (4.00-5.40); RDW 13.4 % (11.5-14.5); WBC 5.2 10x3/uL (4.8-10.8)
[2019-10-22 06:35] LABS: ALBUMIN 3.1 g/dL (3.4-5.0); BILIRUBIN - TOTAL 0.27 mg/dL (0.2-1.3); CREATININE - SERUM 1.3 mg/dL (0.6-1.3); MAGNESIUM - SERUM 2.9 mg/dL (1.8-2.4); PROTEIN - SERUM 6.3 g/dL (6.4-8.2)
[2019-10-22 06:37] LABS: ANION GAP 11.3 mmol/L (8-16); POTASSIUM - SERUM 4.3 mmol/L (3.5-5.1)
[2019-10-22 08:37] VITALS: BP 105/60
--- NOTE | 2019-10-22 09:00 | NUR ---
MIDLINE DRESSING CHANGED. OLD ONE WAS SATURATED IN DRIED BLOOD. STERILE TECHNIQUE MAINTAINED. TOLERATED WELL. BED IN LOW POSITION. CL IN REACH. PROVIDED FRESH WATER AND SWEET IN LOW REQUESTED. WCTM
[2019-10-22 13:09] VITALS: BP 136/69
--- NOTE | 2019-10-22 16:35 | NUR ---
TRIED TO GET PATIENT TO GET INTO SHOWER. SHE REFUSED. STATES SHE DOESN'T WANT TO DO THAT RIGHT NOW. WIPED THE OLD NYSTATIN POWDER OFF AND PAT DRIED THE AREA WITH A WASH CLOTH TO APPLY THE NEW. CL IN REACH. WCTM
[2019-10-22 17:09] VITALS: BP 127/61
[2019-10-22 17:49] LABS: BILIRUBIN NEGATIVE (NEGATIVE); GLUCOSE NEGATIVE (NEGATIVE); KETONE NEGATIVE (NEGATIVE); NITRITE NEGATIVE (NEGATIVE); UROBILINOGEN NORMAL (NORMAL)
--- NOTE | 2019-10-22 20:00 | NUR ---
ALERT SITTING UP IN BED AUDIABE WHEEZING NOTED O2 IN USE N/C, SEE SHIFT ASSESSMENT CALL LIGHT IN REACH, ATTEMPTED TO GET PT TO TAKE SHOWER STATES ITS TO SMALL
[2019-10-22 20:30] VITALS: BP 147/87
[2019-10-23 00:32] VITALS: BP 162/88
[2019-10-23 04:15] VITALS: BP 187/111
[2019-10-23 06:08] LABS: ANION GAP 10.1 mmol/L (8-16); BILIRUBIN - TOTAL 0.32 mg/dL (0.2-1.3); CALCIUM 8.2 mg/dL (8.5-10.1); CARBON DIOXIDE 28.6 mmol/L (21.0-32.0); CREATININE - SERUM 1.3 mg/dL (0.6-1.3); MAGNESIUM - SERUM 2.5 mg/dL (1.8-2.4); POTASSIUM - SERUM 4.7 mmol/L (3.5-5.1); PROTEIN - SERUM 6.2 g/dL (6.4-8.2)
[2019-10-23 07:46] LABS: BASOPHILS 0 % (0-2); EOSINOPHILS 0 % (0-7); HEMATOCRIT 41.1 % (36.0-48.0); HEMOGLOBIN 13.6 g/dL (12-16); IMMATURE GRANULOCYTES 1.9 % (0-5); MCH 32.2 pg (26.0-34.0); MCHC 33.1 g/dL (31.0-37.0); MEAN PLATELET VOLUME 11.4 fL (7.4-10.4); MONOCYTES 5.5 % (2-11); NEUTROPHILS 88.6 % (40-80); PLATELET COUNT 102 10x3/uL (130-400); RBC 4.23 10x6/uL (4.00-5.40); RDW 13.3 % (11.5-14.5); WBC 5.3 10x3/uL (4.8-10.8)
[2019-10-23 07:47] LABS: MCV 97.2 fL (80.0-100.0)
[2019-10-23 08:52] VITALS: BP 101/69
[2019-10-23 12:34] VITALS: BP 175/83
--- NOTE | 2019-10-23 19:00 | NUR ---
SITTING UP IN BED WATCHING TV, CURRENTLY RCVING 3L VIA NC. MIDLINE LOCATED TO RIGHT UPPER ARM CURRENTLY RUNNING MVI. DENIES NEEDS OTHER THAN ICE CREAM AT THIS TIME, WILL CONT TO MONITOR.
--- NOTE | 2019-10-23 19:50 | NUR ---
I have reviewed this patient and I concur with the Shift Assessment completed by the Licensed Practical Nurse today this shift.
[2019-10-23 21:25] VITALS: BP 183/106
--- NOTE | 2019-10-24 00:41 | NUR ---
2310)REC'D IN BED LYING ON RIGHT SIDE.ETES CLOSED RESP. DEEP AND EVEN 02 3L/NC.NO RESP. DIFFICULTY OBSERVED AT PRESENT TIME.WILL CONTINUE TO MONITOR FOR ANY CHGES AND FOLLOW CURRENT PLAN OF CARE.
[2019-10-24 01:00] VITALS: BP 174/78
[2019-10-24 04:58] LABS: BASOPHILS 0 % (0-2); EOSINOPHILS 0 % (0-7); HEMATOCRIT 41.6 % (36.0-48.0); HEMOGLOBIN 13.6 g/dL (12-16); IMMATURE GRANULOCYTES 1.1 % (0-5); LYMPHOCYTES 2.6 % (15-50); MCH 32.3 pg (26.0-34.0); MCHC 32.7 g/dL (31.0-37.0); MCV 98.8 fL (80.0-100.0); MEAN PLATELET VOLUME 10.5 fL (7.4-10.4); MONOCYTES 4.7 % (2-11); NEUTROPHILS 91.6 % (40-80); PLATELET COUNT 104 10x3/uL (130-400); RBC 4.21 10x6/uL (4.00-5.40); RDW 13.3 % (11.5-14.5); WBC 5.7 10x3/uL (4.8-10.8)
[2019-10-24 05:22] VITALS: BP 171/96
[2019-10-24 05:31] LABS: ALBUMIN 3.1 g/dL (3.4-5.0); BILIRUBIN - TOTAL 0.38 mg/dL (0.2-1.3); CALCIUM 8.5 mg/dL (8.5-10.1); CARBON DIOXIDE 29.8 mmol/L (21.0-32.0); CREATININE - SERUM 1.6 mg/dL (0.6-1.3); MAGNESIUM - SERUM 2.4 mg/dL (1.8-2.4); PHOSPHOROUS 4.1 mg/dL (2.5-4.9); POTASSIUM - SERUM 4.8 mmol/L (3.5-5.1); PROTEIN - SERUM 6.4 g/dL (6.4-8.2)
[2019-10-24 09:33] VITALS: BP 155/86
[2019-10-24 13:21] VITALS: BP 112/56
--- NOTE | 2019-10-24 14:49 | NUR ---
Nutrition follow-up: Diet: low sodium PO intake 100% of all meals Pt reports feeling better; appetite good at this time +BM Labs reviewed RDN following.
[2019-10-24 16:45] VITALS: BP 147/69
--- NOTE | 2019-10-24 17:38 | NUR ---
CALLED U/S AND SPOKE TO RALF WHO STATED PT U/S HAD ALREADY BEEN COMPLETED AND THAT THEY ARE WAITING FOR 'Octavio TO READ IT. PT IS VERY UPSET AND WANTS TO LEAVE. ADVISED PT SHE CAN NOT JUST LEAVE AND DR'S SHOULD BE IN SHORTLY. CL IN REACH CONTINUE WITH PLAN OF CARE
--- NOTE | 2019-10-24 18:09 | NUR ---
I have reviewed this patient and I concur with the Shift Assessment completed by the Licensed Practical Nurse today this shift.
[2019-10-24 20:41] VITALS: BP 140/71
[2019-10-25 01:27] VITALS: BP 130/60
[2019-10-25 05:18] VITALS: BP 143/60
[2019-10-25 05:55] LABS: APTT 21.2 SECONDS (22.8-39.4); INR 1.17 (0.85-1.17); PROTIME 14.8 SECONDS (11.6-15.0)
--- NOTE | 2019-10-25 07:05 | NUR ---
I have reviewed this patient and I concur with the Shift Assessment completed by the Licensed Practical Nurse today this shift.
[2019-10-25 09:37] VITALS: BP 143/62
[2019-10-25 10:24] LABS: AMYLASE - SERUM 60 U/L (25-115); LIPASE 330 U/L (73-393)
[2019-10-25 13:16] VITALS: BP 137/78
--- NOTE | 2019-10-25 14:21 | NUR ---
I have reviewed this patient and I concur with the Shift Assessment completed by the Licensed Practical Nurse today this shift.
[2019-10-25 17:32] VITALS: BP 153/71
[2019-10-25 22:12] VITALS: BP 149/88
[2019-10-26 00:56] VITALS: BP 137/79
[2019-10-26 04:46] VITALS: BP 148/76
[2019-10-26 05:33] LABS: BASOPHILS 0.1 % (0-2); EOSINOPHILS 0.1 % (0-7); HEMATOCRIT 42.6 % (36.0-48.0); HEMOGLOBIN 13.9 g/dL (12-16); IMMATURE GRANULOCYTES 0.8 % (0-5); LYMPHOCYTES 3.2 % (15-50); MCH 32.5 pg (26.0-34.0); MCHC 32.6 g/dL (31.0-37.0); MCV 99.5 fL (80.0-100.0); MEAN PLATELET VOLUME 10.1 fL (7.4-10.4); MONOCYTES 2.3 % (2-11); NEUTROPHILS 93.5 % (40-80); PLATELET COUNT 115 10x3/uL (130-400); RBC 4.28 10x6/uL (4.00-5.40); RDW 13.4 % (11.5-14.5); WBC 11.1 10x3/uL (4.8-10.8)
[2019-10-26 05:41] LABS: ANION GAP 8.3 mmol/L (8-16); CALCIUM 8.5 mg/dL (8.5-10.1); CARBON DIOXIDE 31.8 mmol/L (21.0-32.0); CREATININE - SERUM 1.3 mg/dL (0.6-1.3); MAGNESIUM - SERUM 2.1 mg/dL (1.8-2.4); PHOSPHOROUS 4.3 mg/dL (2.5-4.9); POTASSIUM - SERUM 5.1 mmol/L (3.5-5.1)
[2019-10-26 08:45] VITALS: BP 188/107
[2019-10-26 12:32] VITALS: BP 174/84
--- NOTE | 2019-10-26 16:00 | NUR ---
I have reviewed this patient and I concur with the Shift Assessment completed by the Licensed Practical Nurse today this shift.
[2019-10-26 23:34] VITALS: BP 174/98
[2019-10-27 04:35] VITALS: BP 134/66
[2019-10-27 07:40] LABS: BASOPHILS 0 % (0-2); EOSINOPHILS 0 % (0-7); HEMATOCRIT 38.9 % (36.0-48.0); HEMOGLOBIN 12.6 g/dL (12-16); IMMATURE GRANULOCYTES 0.6 % (0-5); LYMPHOCYTES 3.1 % (15-50); MCH 31.6 pg (26.0-34.0); MCHC 32.4 g/dL (31.0-37.0); MEAN PLATELET VOLUME 10.2 fL (7.4-10.4); MONOCYTES 2.7 % (2-11); NEUTROPHILS 93.6 % (40-80); PLATELET COUNT 105 10x3/uL (130-400); RBC 3.99 10x6/uL (4.00-5.40); RDW 13.2 % (11.5-14.5)
--- NOTE | 2019-10-27 07:45 | NUR ---
PT GETTING UP TO GO TO RESTROOM, CURRENTLY ON 3L VIA NC. MIDLINE LOCATED TO RIGHT ARM, NIGHT NURSE SHERIDAN REPORTS TO ME THAT IT HAS QUIT WORKING, HAS TRIED TO PLACE NEW IV BUT FAILED, CALLED AND LEFT A MSG FOR VASCULAR ACCESS. NO S/S OF DISTRESS AT THIS TIME WILL CONT TO MONITOR.
[2019-10-27 07:55] VITALS: BP 142/80
[2019-10-27 07:55] LABS: MCV 97.5 fL (80.0-100.0); WBC 6.7 10x3/uL (4.8-10.8)
[2019-10-27 08:13] LABS: ALBUMIN 3.1 g/dL (3.4-5.0); ANION GAP 7.6 mmol/L (8-16); BILIRUBIN - TOTAL 0.71 mg/dL (0.2-1.3); CALCIUM 8.6 mg/dL (8.5-10.1); CARBON DIOXIDE 30.3 mmol/L (21.0-32.0); CREATININE - SERUM 1.5 mg/dL (0.6-1.3); PHOSPHOROUS 4.4 mg/dL (2.5-4.9); POTASSIUM - SERUM 4.9 mmol/L (3.5-5.1); PROTEIN - SERUM 6.1 g/dL (6.4-8.2)
[2019-10-27 09:21] VITALS: BP 180/93
--- NOTE | 2019-10-27 10:30 | NUR ---
PT RESTING IN BED. NO SIGNS OF DISTRESS. IV TO RIGHT FORARM PATENT NO REDNESS OR TENDERNESS. ON 3L NC. DENIES ANY FURTHER NEED AT THIS TIME. CALL LIGHT IN REACH. BED LOW POSITION. NO FAMILY AT BEDSIDE AT THIS TIME.
[2019-10-27 13:12] VITALS: BP 176/88
[2019-10-27 16:24] VITALS: BP 180/99
[2019-10-27 19:30] VITALS: BP 179/103
[2019-10-28 00:30] VITALS: BP 181/82
[2019-10-28 05:00] VITALS: BP 186/115
[2019-10-28 06:21] LABS: BASOPHILS 0 % (0-2); EOSINOPHILS 0 % (0-7); HEMOGLOBIN 12.9 g/dL (12-16); IMMATURE GRANULOCYTES 1.4 % (0-5); LYMPHOCYTES 3.9 % (15-50); MCH 31.9 pg (26.0-34.0); MCHC 33.1 g/dL (31.0-37.0); MCV 96.3 fL (80.0-100.0); MEAN PLATELET VOLUME 10.8 fL (7.4-10.4); MONOCYTES 3.8 % (2-11); NEUTROPHILS 90.9 % (40-80); PLATELET COUNT 120 10x3/uL (130-400); RBC 4.05 10x6/uL (4.00-5.40); RDW 13.2 % (11.5-14.5); WBC 6.6 10x3/uL (4.8-10.8)
[2019-10-28 06:57] LABS: ALBUMIN 3.2 g/dL (3.4-5.0); ANION GAP 8.7 mmol/L (8-16); BILIRUBIN - TOTAL 0.79 mg/dL (0.2-1.3); CALCIUM 8.5 mg/dL (8.5-10.1); CREATININE - SERUM 1.4 mg/dL (0.6-1.3); MAGNESIUM - SERUM 1.9 mg/dL (1.8-2.4); PHOSPHOROUS 3.8 mg/dL (2.5-4.9); POTASSIUM - SERUM 4.7 mmol/L (3.5-5.1)
[2019-10-28 08:37] VITALS: BP 195/98
--- NOTE | 2019-10-28 10:27 | NUR ---
RESTING IN BED, NO DISTRESS NOTED, O2 AT 3.5 PER NC, BRUSING NOTED OVER ARMS, IV INFUSING, CONT TO MONITOR RESP STATUS
[2019-10-28 13:13] VITALS: BP 133/67
[2019-10-28 16:18] VITALS: BP 154/88
[2019-10-28 19:58] VITALS: BP 152/94
--- NOTE | 2019-10-28 20:15 | NUR ---
AWAKE,ALERT,SITTING UP IN BED WATCHING TV. NO COMPLAINTS VOICED. NO DISTRESS NOTED.O2 @ 3.5L PER NC ON. RESP UNLABORED. IV TO LFA INTACT WITHOUT REDNESS ORE EDEMA NOTED. CL IN REACH
[2019-10-29] VITALS: BP 166/95
[2019-10-29 04:00] VITALS: BP 163/93
--- NOTE | 2019-10-29 04:39 | NUR ---
I have reviewed this patient and I concur with the Shift Assessment completed by the Licensed Practical Nurse today this shift.
[2019-10-29 08:02] LABS: ALBUMIN 2.9 g/dL (3.4-5.0); ANION GAP 12.4 mmol/L (8-16); BILIRUBIN - TOTAL 0.62 mg/dL (0.2-1.3); CALCIUM 8.7 mg/dL (8.5-10.1); CREATININE - SERUM 1.4 mg/dL (0.6-1.3); MAGNESIUM - SERUM 1.9 mg/dL (1.8-2.4); PHOSPHOROUS 3.8 mg/dL (2.5-4.9); POTASSIUM - SERUM 4.4 mmol/L (3.5-5.1); PROTEIN - SERUM 6.2 g/dL (6.4-8.2); VANCOMYCIN - RANDOM 18.7 ug/mL (10.0-20.0)
[2019-10-29 08:40] VITALS: BP 156/82
--- NOTE | 2019-10-29 10:16 | NUR ---
resting in bed, no distress noted, awaiting iv placement, stuck x2 this am by short story writer, cont to monitor resp status, pt will remove o2 and forget to replace it
[2019-10-29 11:03] LABS: BASOPHILS 0 % (0-2); EOSINOPHILS 0 % (0-7); HEMATOCRIT 39.9 % (36.0-48.0); HEMOGLOBIN 13.4 g/dL (12-16); IMMATURE GRANULOCYTES 1.2 % (0-5); MCH 32.4 pg (26.0-34.0); MCHC 33.6 g/dL (31.0-37.0); MCV 96.4 fL (80.0-100.0); MEAN PLATELET VOLUME 10.5 fL (7.4-10.4); MONOCYTES 6.8 % (2-11); PLATELET COUNT 121 10x3/uL (130-400); RBC 4.14 10x6/uL (4.00-5.40); RDW 13.2 % (11.5-14.5)
[2019-10-29 11:12] LABS: WBC 9.3 10x3/uL (4.8-10.8)
[2019-10-29 12:33] VITALS: BP 163/95
[2019-10-29 17:21] VITALS: BP 166/98
[2019-10-29 19:30] VITALS: BP 178/107
--- NOTE | 2019-10-29 20:34 | NUR ---
AWAKE,ALERT.SITTING UP IN BED WATCHING TV. NO COMPLAITNS OF DISCOMFORT. RESP UNLABORED. O2 @ 3.5L PER NC ON. NO DISTRESS NOTED. CL IN REACH
[2019-10-30] VITALS: BP 175/97
[2019-10-30 04:00] VITALS: BP 187/103
--- NOTE | 2019-10-30 05:29 | NUR ---
I have reviewed this patient and I concur with the Shift Assessment completed by the Licensed Practical Nurse today this shift.
[2019-10-30 05:51] LABS: ALBUMIN 2.9 g/dL (3.4-5.0); ANION GAP 11.2 mmol/L (8-16); BILIRUBIN - TOTAL 0.47 mg/dL (0.2-1.3); CALCIUM 8.8 mg/dL (8.5-10.1); CARBON DIOXIDE 29.1 mmol/L (21.0-32.0); CREATININE - SERUM 1.4 mg/dL (0.6-1.3); PHOSPHOROUS 3.4 mg/dL (2.5-4.9); POTASSIUM - SERUM 4.3 mmol/L (3.5-5.1); PROTEIN - SERUM 6.1 g/dL (6.4-8.2); VANCOMYCIN - RANDOM 12.2 ug/mL (10.0-20.0)
--- NOTE | 2019-10-30 07:20 | NUR ---
ALERT AND ORIENTED. LUNGS DIMINISHED BILATERALLY. HEART SOUNDS S1 AND S2 HEARD IN ALL LEAL. BOWEL SOUNDS ACTIVE X 4. SKIN INTACT WITHOUT REDNESS. IV TO RFA PATENT WITHOUT REDNESS. DENIES PAIN. DENIES NEEDS. BED LOW. CALL NAIR AND PERSONAL ITEMS IN REACH. WILL CONTINUE TO MONITOR.
[2019-10-30 07:50] LABS: BASOPHILS 0.1 % (0-2); EOSINOPHILS 0.3 % (0-7); HEMATOCRIT 37.9 % (36.0-48.0); HEMOGLOBIN 12.6 g/dL (12-16); LYMPHOCYTES 6.1 % (15-50); MCH 32.1 pg (26.0-34.0); MCHC 33.2 g/dL (31.0-37.0); MCV 96.7 fL (80.0-100.0); MEAN PLATELET VOLUME 10.4 fL (7.4-10.4); MONOCYTES 8.6 % (2-11); NEUTROPHILS 83.9 % (40-80); PLATELET COUNT 113 10x3/uL (130-400); RBC 3.92 10x6/uL (4.00-5.40); RDW 13.2 % (11.5-14.5); WBC 7.9 10x3/uL (4.8-10.8)
--- NOTE | 2019-10-30 08:00 | NUR ---
SPOKE WITH CHRISTIAN CAMPA ABOUT PATIENT IV INFILTRATED. VASC ACCESS NURSE STATES NEEDS MIDLINE IF IV NEEEDED. PATIENT STATES DOES NOT WANT MIDLINE D/T PROBABLY GOING HOME TODAY. DEPORTATION EXAMINER STATES WILL LOOK AND SEE IF DC TODAY. DEPORTATION EXAMINER AWARE AM CEFEPIME NOT GIVEN.
[2019-10-30 08:50] VITALS: BP 176/100
--- NOTE | 2019-10-30 09:01 | NUR ---
N/O IV VANC BY DR HYMAN. PAGED D/T IV OUT. WAITING CALL BACK.
--- NOTE | 2019-10-30 09:04 | NUR ---
DARY WITH PHARMACIST MIKAELA WHO STATES HE PUT IN VANC. NOTIFIED PATIENT WITH NO IV AT THIS TIME. STATES IS GOING TO CANCEL ONE TIME DOSE.
--- NOTE | 2019-10-30 11:31 | NUR ---
O2 REMOVED PER RT REQUEST FOR ABG TESTING.
--- NOTE | 2019-10-30 12:38 | MORECARE ---
CASE MANAGEMENT DISCHARGE SUMMARY PATIENT: OBI LAST UNIT: [id number] ADM DATE: 10/18/19 AGE: 59 : 58 SEX: F ROOM/BED: D.2232 AUTHOR: JANELDOC PHYSICIAN: REFERRING PHYSICIAN: PALOMO COHN MD DATE OF SERVICE: 10/30/19 Discharge Plan Patient Name: OBI LAST Facility: [facility]:[place] : 1960 Planned Disposition: Home with Home Health Anticipated Discharge Date: Discharge Date: Expected LOS: Initial Reviewer: [email or web address] Initial Review Date: 10/19/2019 Generated: 10/30/19 1:38 pm DCP- Discharge Planning Updated by [email or web address]: Jeanne Noguera on 10/18/19 12:[address] CM met with patient to discuss initial discharge planning. Patient is in agreement to proceed with the assessment. Patient reports that she lives at home partially dependent with her spouse. Patient is alert/oriented. Stairs/steps: 0. PCP: Dr. Cornelius Arreola. Pharmacy: [facility]. Patient states she has been able to obtain all of her prescribed medications. HHS: [facility]. DME: Home O2, UD, RE, BSC. DME provider: Mee. Patient gives permission to speak with family members/care givers. Emergency contact: Barrera Last (spouse) [phone]. Patient is Partial with all ADL's. Medication management per . CM discussed the availability of HH, Rehab, DME services. Patient denies the need for additional services at this time and feels safe returning to previous environment. Patient was hospitalized within the past 30 days. Patient denies the use of community resources LCAC RADAR OPERATOR/NAVIGATOR. Transportation at time of discharge: Barrera Last. CM will require an order to resume HHS upon discharge. CM will assist PRN with further DC plans/needs. DCPIA - Discharge Planning Initial Assessment Updated by [email or web address]: Jeanne Noguera on 10/19/19 10:48 am * Is the patient Alert and Oriented? Yes * How many steps to enter\exit or inside your home? * PCP Dr. Cornelius Arreola * Pharmacy [facility] * Preadmission Environment Home with Family * ADLs Partial Dependent * Partial ADLs (Assistance needed) Bathing Medication Management * Equipment Bedside Commode Oxygen Rolling Walker * Other Equipment NA * List name and contact numbers for known caregivers / representatives who currently or will assist patient after discharge: Mee * Verbal permission to speak to the caregivers and representatives has been obtained from the patient. Yes * Community resources currently utilized Home Health * Please name any agencies selected above. [facility] * Additional services required to return to the preadmission environment? Yes * Can the patient safely return to the preadmission environment? Yes * Has this patient been hospitalized within the prior 30 days at any hospital? Yes External Providers External Provider: Rahel Next Contact Date: Service Request Date: Service Type: Resolution: Reviewer: Comments: Coverage Notice Reviewer: [email or web address] Tori Yeager Notice Issued Date-Time: 10/20/2019 11:34 Notice Type: Patient Choice Letter Notice Delivered To: Patient Relationship to Patient: Self Building Supplies Salesperson Retail Name: Delivery Method: HAND - Hand Delivered Kayce Days: Prior Verbal Notification: Recipient Understood Notice: Yes Recipient Signature: Yes Med Rec Note Co-signed by Attending: Coverage Notice Comment: resume care with [facility] Last DP export: 10/20/19 7:19 p Patient Name: OBI LAST Page [id number] at 1238 All edits/amendments must be made on the electronic document DICTATION DATE: 10/30/19 1238 MACHINE PRESERVATIVE FILLER: AUTUMN 10/30/19 1238 RPT#: [id number] DC DATE: STATUS: ADM IN [facility] [address] [place] [address] END OF REPORT
--- NOTE | 2019-10-30 12:55 | MORECARE ---
CASE MANAGEMENT DISCHARGE SUMMARY PATIENT: OBI LAST UNIT: [id number] ADM DATE: 10/18/19 AGE: 59 : 58 SEX: F ROOM/BED: D.2232 AUTHOR: JANEL,DOC PHYSICIAN: REFERRING PHYSICIAN: PALOMO COHN MD DATE OF SERVICE: 10/30/19 Discharge Plan Patient Name: OBI LAST Facility: [facility]:[place] : 1960 Planned Disposition: Home with Home Health Anticipated Discharge Date: Discharge Date: Expected LOS: Initial Reviewer: [email or web address] Initial Review Date: 10/19/2019 Generated: 10/30/19 1:54 pm Comments DCP- Discharge Planning Updated by [email or web address]: Amita Guerrier on 10/30/19 11:[address] I HAVE FAXED ABG'S TO [facility] AND CLINICAL GIVEN TO ENZO ([facility]) WHILE SHE WAS HERE FOR HER TRILOGY. STILL AWAITING INSURANCE AUTH ON TRILOGY. RT CALLED FOR WALK TEST. CM WILL CONTINUE TO FOLLOW AND ASSIST WITH DISHCARGE PLANNING/NEEDS. DCP- Discharge Planning Updated by [email or web address]: Jeanne Noguera on 10/18/19 12:[address] CM met with patient to discuss initial discharge planning. Patient is in agreement to proceed with the assessment. Patient reports that she lives at home partially dependent with her spouse. Patient is alert/oriented. Stairs/steps: 0. PCP: Dr. Cornelius Arreola. Pharmacy: [facility]. Patient states she has been able to obtain all of her prescribed medications. HHS: [facility]. DME: Home O2, UD, RE, BSC. DME provider: Mee. Patient gives permission to speak with family members/care givers. Emergency contact: Barrera Last (spouse) [phone]. Patient is Partial with all ADL's. Medication management per . CM discussed the availability of HH, Rehab, DME services. Patient denies the need for additional services at this time and feels safe returning to previous environment. Patient was hospitalized within the past 30 days. 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 Transportation at time of discharge: Barrera Last. CM will require an order to resume HHS upon discharge. CM will assist PRN with further DC plans/needs. DCPIA - Discharge Planning Initial Assessment Updated by [email or web address]: Jeanne Noguera on 10/19/19 10:48 am * Is the patient Alert and Oriented? Yes * How many steps to enter\exit or inside your home? * PCP Dr. Cornelius Arreola * Pharmacy [facility] * Preadmission Environment Home with Family * ADLs Partial Dependent * Partial ADLs (Assistance needed) Bathing Medication Management * Equipment Bedside Commode Oxygen Rolling Walker * Other Equipment NA * List name and contact numbers for known caregivers / representatives who currently or will assist patient after discharge: Mee * Verbal permission to speak to the caregivers and representatives has been obtained from the patient. Yes * Community resources currently utilized Home Health * Please name any agencies selected above. [facility] * Additional services required to return to the preadmission environment? Yes * Can the patient safely return to the preadmission environment? Yes * Has this patient been hospitalized within the prior 30 days at any hospital? Yes Coverage Notice Reviewer: [id number] Tori Yeager Notice Issued Date-Time: 10/20/2019 11:34 Notice Type: Patient Choice Letter Notice Delivered To: Patient Relationship to Patient: Self Grapple Yarder Operator Name: Delivery Method: HAND - Hand Delivered Kayce Days: Prior Verbal Notification: Recipient Understood Notice: Yes Recipient Signature: Yes Med Rec Note Co-signed by Attending: Coverage Notice Comment: resume care with [facility] Last DP export: 10/30/19 11:38 a Patient Name: OBI LAST Page [id number] at 1255 All edits/amendments must be made on the electronic document DICTATION DATE: 10/30/19 1254 EDGE PLUGGER: AUTUMN 10/30/19 1254 RPT#: [id number] DC DATE: STATUS: ADM IN [facility] [address] [place] [address] END OF REPORT
[2019-10-30 13:23] VITALS: BP 159/97
--- NOTE | 2019-10-30 14:29 | NUR ---
SITTING IN BED. REQUESTING DC PAPERWORK. EMIL GRUBBS STATES WAITING TO HEAR ABOUT HOME TRIOLOGY. PATIENT AWARE.
[2019-10-30] MEDS ORDERED: BROVANA15 MCG/2 M INH (14:48)
[2019-10-30] MEDS ORDERED: IPRAT-ALBUT 0.5-3 ML UPD (14:49)
[2019-10-30] MEDS ORDERED: SYMBICORT 16010.2 GM INH (14:50)
[2019-10-30] MEDS ORDERED: PREDNISONE10 MG PO (14:52)
[2019-10-30] MEDS ORDERED: LEVAQUIN750 MG PO (14:54)
--- NOTE | 2019-10-30 15:00 | MORECARE ---
CASE MANAGEMENT DISCHARGE SUMMARY PATIENT: OBI LAST UNIT: [id number] ADM DATE: 10/18/19 AGE: 59 : 58 SEX: F ROOM/BED: D.2232 AUTHOR: JANEL,DOC PHYSICIAN: REFERRING PHYSICIAN: PALOMO COHN MD DATE OF SERVICE: 10/30/19 Discharge Plan Patient Name: OBI LAST Facility: [facility]:[place] : 1960 Planned Disposition: Home with Home Health Anticipated Discharge Date: Discharge Date: Expected LOS: Initial Reviewer: [email or web address] Initial Review Date: 10/19/2019 Generated: 10/30/19 4:00 pm Comments DCP- Discharge Planning Updated by [email or web address]: Amita Guerrier on 10/30/19 1:[address] Patient does not qualify for portable oxygen. She is 95% on room air with exertion. Still awaiting prior auth for trilogy from insurance. [facility] states it may not be authorized today. Patient is asking to be discharged. I informed her that we are waiting on trilogy and she asks to go home without it. I called Dr. New and he states ok to discharge without the Trilogy and if it is authorized, they can deliver to her home. I informed [place] Scruggs APN. I informed Enzo at [facility] that patient was going home and to have Trilogy delivered to the home.[facility] 4 notified of discharge and resumption of care and clinical faxed. Home today with home health. DCP- Discharge Planning Updated by [email or web address]: Amita Guerrier on 10/30/19 11:[address] I HAVE FAXED ABG'S TO [facility] AND CLINICAL GIVEN TO ENZO ([facility]) WHILE SHE WAS HERE FOR HER TRILOGY. STILL AWAITING INSURANCE AUTH ON TRILOGY. RT CALLED FOR WALK TEST. CM WILL CONTINUE TO FOLLOW AND ASSIST WITH DISHCARGE PLANNING/NEEDS. DCP- Discharge Planning Updated by [id number]: Jeanne Noguera on 10/18/19 12:[address] CM met with patient to discuss initial discharge planning. Patient is in agreement to proceed with the assessment. Patient reports that she lives at home partially dependent with her spouse. Patient is alert/oriented. Stairs/steps: 0. PCP: Dr. Cornelius Arreola. Pharmacy: [facility]. Patient states she has been able to obtain all of her prescribed medications. HHS: [facility] H[facility]. DME: Home O2, UD, RE, BSC. DME provider: Mee. Patient gives permission to speak with family members/care givers. Emergency contact: Barrera Last (spouse) [phone]. Patient is Partial with all ADL's. Medication management per . CM discussed the availability of HH, Rehab, DME services. Patient denies the need for additional services at this time and feels safe returning to previous environment. Patient was hospitalized within the past 30 days. 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 Transportation at time of discharge: Barrera Last. CM will require an order to resume HHS upon discharge. CM will assist PRN with further DC plans/needs. DCPIA - Discharge Planning Initial Assessment Updated by [email or web address]: Jeanne Noguera on 10/19/19 10:48 am * Is the patient Alert and Oriented? Yes * How many steps to enter\exit or inside your home? * PCP Dr. Cornelius Arreola * Pharmacy [facility] * Preadmission Environment Home with Family * ADLs Partial Dependent * Partial ADLs (Assistance needed) Bathing Medication Management * Equipment Bedside Commode Oxygen Rolling Walker * Other Equipment NA * List name and contact numbers for known caregivers / representatives who currently or will assist patient after discharge: Mee * Verbal permission to speak to the caregivers and representatives has been obtained from the patient. Yes * Community resources currently utilized Home Health * Please name any agencies selected above. [facility] * Additional services required to return to the preadmission environment? Yes * Can the patient safely return to the preadmission environment? Yes * Has this patient been hospitalized within the prior 30 days at any hospital? Yes External Providers External Provider: [facility] Next Contact Date: Service Request Date: Service Type: Resolution: Reviewer: Comments: Coverage Notice Reviewer: [id number] - Sarah Yeager Notice Issued Date-Time: 10/20/2019 11:34 Notice Type: Patient Choice Letter Notice Delivered To: Patient Relationship to Patient: Self Stone Product Fabricator Name: Delivery Method: HAND - Hand Delivered Kayce Days: Prior Verbal Notification: Recipient Understood Notice: Yes Recipient Signature: Yes Med Rec Note Co-signed by Attending: Coverage Notice Comment: resume care with [facility] Last DP export: 10/30/19 11:55 a Patient Name: OBI LAST Page [phone] at 1500 All edits/amendments must be made on the electronic document DICTATION DATE: 10/30/19 1500 SUPERVISOR PREP: AUTUMN 10/30/19 1500 RPT#: [id number] DC DATE: STATUS: ADM IN [facility] [address] [place] [address] END OF REPORT
--- NOTE | 2019-10-30 15:23 | NUR ---
DISCHARGE EDUCATION PROVIDED BOTH WRITTEN AND VERBAL. VERBALIZED UNDERSTANDING. DENIES FURTHER QUESTIONS. IV PREVIOUSLY REMOVED WITH TIP INTACT. PATIENT DC HOME WITH FAMILY WITH ALL BELONGINGS.
--- NOTE | 2019-11-01 15:16 | MORECARE ---
CASE MANAGEMENT DISCHARGE SUMMARY PATIENT: OBI LAST UNIT: [id number] ADM DATE: 10/18/19 AGE: 59 : 58 SEX: F ROOM/BED: D.2232 AUTHOR: JANEL,DOC PHYSICIAN: REFERRING PHYSICIAN: PALOMO COHN MD DATE OF SERVICE: 11/01/19 Discharge Plan Patient Name: OBI LAST Facility: [facility]:[place] : 1960 Planned Disposition: Home with Home Health Anticipated Discharge Date: Discharge Date: 10/30/2019 Expected LOS: 0 Initial Reviewer: [email or web address] Initial Review Date: 10/19/2019 Generated: 11/01/19 4:16 pm Comments DCP- Discharge Planning Updated by [email or web address]: Amita Guerrier on 10/30/19 1:[address] Patient does not qualify for portable oxygen. She is 95% on room air with exertion. Still awaiting prior auth for trilogy from insurance. [facility] [place] states it may not be authorized today. Patient is asking to be discharged. I informed her that we are waiting on trilogy and she asks to go home without it. I called Dr. New and he states ok to discharge without the Trilogy and if it is authorized, they can deliver to her home. I informed [place] Scruggs APN. I informed Enzo at [facility] [place] that patient was going home and to have Trilogy delivered to the home.[facility] notified of discharge and resumption of care and clinical faxed. Home today with home health. DCP- Discharge Planning Updated by [id number]: Amita Guerrier on 10/30/19 11:[address] I HAVE FAXED ABG'S TO [facility] AND CLINICAL GIVEN TO [facility] ([facility]) WHILE SHE WAS HERE FOR HER TRILOGY. STILL AWAITING INSURANCE AUTH ON TRILOGY. RT CALLED FOR WALK TEST. CM WILL CONTINUE TO FOLLOW AND ASSIST WITH DISHCARGE PLANNING/NEEDS. DCP- Discharge Planning Updated by [id number]: Jeanne Noguera on 10/18/19 12:[address] CM met with patient to discuss initial discharge planning. Patient is in agreement to proceed with the assessment. Patient reports that she lives at home partially dependent with her spouse. Patient is alert/oriented. Stairs/steps: 0. PCP: Dr. Cornelius Arreola. Pharmacy: [facility]. Patient states she has been able to obtain all of her prescribed medications. HHS: [facility]. DME: Home O2, UD, RE, BSC. DME provider: Mee. Patient gives permission to speak with family members/care givers. Emergency contact: Barrera Last (spouse) [phone]. Patient is Partial with all ADL's. Medication management per . CM discussed the availability of HH, Rehab, DME services. Patient denies the need for additional services at this time and feels safe returning to previous environment. Patient was hospitalized within the past 30 days. Patient denies the use of community resources MANAGER STAFFING. Transportation at time of discharge: Barrera Last. CM will require an order to resume HHS upon discharge. CM will assist PRN with further DC plans/needs. DCPIA - Discharge Planning Initial Assessment Updated by [email or web address]: Jeanne Noguera on 10/19/19 10:48 am * Is the patient Alert and Oriented? Yes * How many steps to enter\exit or inside your home? * PCP Dr. Cornelius Arreola * Pharmacy [facility] * Preadmission Environment Home with Family * ADLs Partial Dependent * Partial ADLs (Assistance needed) Bathing Medication Management * Equipment Bedside Commode Oxygen Rolling Walker * Other Equipment NA * List name and contact numbers for known caregivers / representatives who currently or will assist patient after discharge: Mee * Verbal permission to speak to the caregivers and representatives has been obtained from the patient. Yes * Community resources currently utilized Home Health * Please name any agencies selected above. [facility] * Additional services required to return to the preadmission environment? Yes * Can the patient safely return to the preadmission environment? Yes * Has this patient been hospitalized within the prior 30 days at any hospital? Yes Coverage Notice Reviewer: [id number] - Sarah Yeager Notice Issued Date-Time: 10/20/2019 11:34 Notice Type: Patient Choice Letter Notice Delivered To: Patient Relationship to Patient: Self Senior Market Intelligence Consultant Name: Delivery Method: HAND - Hand Delivered Kayce Days: Prior Verbal Notification: Recipient Understood Notice: Yes Recipient Signature: Yes Med Rec Note Co-signed by Attending: Coverage Notice Comment: resume care with [facility] Last DP export: 10/30/19 2:00 p Patient Name: OBI LAST Page [id number] at 1516 All edits/amendments must be made on the electronic document DICTATION DATE: 11/01/191515 CLINICAL ASSOC: AUTUMN 11/01/19 1516 RPT#: [id number] DC DATE:10/30/19 STATUS: DIS IN [facility] [address] [place] [address] END OF REPORT
== END 2019-10-30 15:34 | disposition home health service (06) | DRG 189 ==
LOC: D.ER 10:23 → D.ICU 12:26 → D.MS 10-20 18:36
PROVIDERS: Emergency Medicine; Family Medicine; ADMIT Internal Medicine Nephrology; ATTEND Internal Medicine Nephrology
PROC: 05HY33Z Insertion of Infusion Device into Upper Vein, Percutaneous Approach (ICD-10-PCS; principal; 2019-10-19)
DX: J96.02 Acute respiratory failure with hypercapnia (principal); I50.31 Acute diastolic (congestive) heart failure; J44.1 Chronic obstructive pulmonary disease with (acute) exacerbation; F17.203 Nicotine dependence unspecified, with withdrawal; F10.239 Alcohol dependence with withdrawal, unspecified; I11.0 Hypertensive heart disease with heart failure; J96.01 Acute respiratory failure with hypoxia; E66.9 Obesity, unspecified; G89.29 Other chronic pain; R74.0 Nonspecific elevation of levels of transaminase and lactic acid dehydrogenase [LDH]; J11.1 Influenza due to unidentified influenza virus with other respiratory manifestations; D69.6 Thrombocytopenia, unspecified; R53.81 Other malaise; D72.829 Elevated white blood cell count, unspecified; M10.9 Gout, unspecified; M46.46 Discitis, unspecified, lumbar region

== ENCOUNTER 2019-11-01 13:03 | Observation (INO) | payer OTHER ==
[~2019-11-01] VITALS: Ht 162.6 cm; Wt 112.5 kg
[~2019-11-01 13:03] MED LIST changes: +BROVANA15 MCG/2 M INH; +LEVAQUIN750 MG PO; +SYMBICORT 16010.2 GM INH
[2019-11-01 13:24] VITALS: BP 99/62
[2019-11-01 15:10] LABS: APTT 22.4 SECONDS (22.8-39.4); INR 1.14 (0.85-1.17); PROTIME 14.6 SECONDS (11.6-15.0)
[2019-11-01 15:15] LABS: ANION GAP 9.3 mmol/L (8-16); CALCIUM 8.6 mg/dL (8.5-10.1); CARBON DIOXIDE 31.8 mmol/L (21.0-32.0); CREATININE - SERUM 1.2 mg/dL (0.6-1.3); POTASSIUM - SERUM 4.1 mmol/L (3.5-5.1)
[2019-11-01 15:22] LABS: ALBUMIN 2.7 g/dL (3.4-5.0); BILIRUBIN - TOTAL 0.55 mg/dL (0.2-1.3); PROTEIN - SERUM 6.1 g/dL (6.4-8.2)
[2019-11-01 15:37] LABS: BASOPHILS 0 % (0-2); EOSINOPHILS 0.2 % (0-7); HEMATOCRIT 40.3 % (36.0-48.0); HEMOGLOBIN 13.1 g/dL (12-16); IMMATURE GRANULOCYTES 0.4 % (0-5); LYMPHOCYTES 4.5 % (15-50); MCH 32.1 pg (26.0-34.0); MCHC 32.5 g/dL (31.0-37.0); MCV 98.8 fL (80.0-100.0); MEAN PLATELET VOLUME 11.7 fL (7.4-10.4); MONOCYTES 1.8 % (2-11); NEUTROPHILS 93.1 % (40-80); PLATELET COUNT 122 10x3/uL (130-400); RBC 4.08 10x6/uL (4.00-5.40); RDW 13.4 % (11.5-14.5); WBC 13.7 10x3/uL (4.8-10.8)
[2019-11-01 16:58] VITALS: BP 118/96
[2019-11-01 18:00] VITALS: BP 148/79; BMI 42.6
[2019-11-01 19:06] LABS: HEMATOCRIT 41.6 % (36.0-48.0); HEMOGLOBIN 13.9 g/dL (12-16)
[2019-11-01 21:15] VITALS: BP 124/69
[2019-11-02 01:02] LABS: HEMOGLOBIN 12.7 g/dL (12-16)
[2019-11-02 01:44] VITALS: BP 120/72
[2019-11-02 04:57] LABS: BASOPHILS 0 % (0-2); EOSINOPHILS 0 % (0-7); HEMOGLOBIN 12.8 g/dL (12-16); IMMATURE GRANULOCYTES 0.3 % (0-5); LYMPHOCYTES 5.5 % (15-50); MCH 33.1 pg (26.0-34.0); MCHC 33.7 g/dL (31.0-37.0); MCV 98.2 fL (80.0-100.0); MEAN PLATELET VOLUME 12.1 fL (7.4-10.4); MONOCYTES 4.4 % (2-11); NEUTROPHILS 89.8 % (40-80); PLATELET COUNT 102 10x3/uL (130-400); RBC 3.87 10x6/uL (4.00-5.40); RDW 13.3 % (11.5-14.5); WBC 11.1 10x3/uL (4.8-10.8)
[2019-11-02 06:09] LABS: ANION GAP 10.8 mmol/L (8-16); CALCIUM 8.9 mg/dL (8.5-10.1); CARBON DIOXIDE 33.7 mmol/L (21.0-32.0); CREATININE - SERUM 1.2 mg/dL (0.6-1.3); POTASSIUM - SERUM 4.5 mmol/L (3.5-5.1)
[2019-11-02 06:48] VITALS: BP 162/90
[2019-11-02 09:01] VITALS: BP 130/60
[2019-11-02 12:15] LABS: HEMOGLOBIN 12.2 g/dL (12-16)
[2019-11-02 12:41] VITALS: Ht 162.6 cm; Wt 112.5 kg
[2019-11-02 13:12] VITALS: BP 120/63
== END 2019-11-02 17:25 | disposition home or self-care (01) ==
LOC: D.ER 13:03 → D.MS 15:59 → D.ER 15:59 → OBSVTIME 15:59 → D.MS 15:59
PROVIDERS: Emergency Medicine; ADMIT Internal Medicine Nephrology; ATTEND Internal Medicine Nephrology
DX: K92.2 Gastrointestinal hemorrhage, unspecified (principal); F17.203 Nicotine dependence unspecified, with withdrawal; Z68.41 Body mass index [BMI] 40.0-44.9, adult; D69.6 Thrombocytopenia, unspecified; I10 Essential (primary) hypertension; M10.9 Gout, unspecified; R74.0 Nonspecific elevation of levels of transaminase and lactic acid dehydrogenase [LDH]; E66.9 Obesity, unspecified; M54.9 Dorsalgia, unspecified; N95.9 Unspecified menopausal and perimenopausal disorder; K75.9 Inflammatory liver disease, unspecified

== ENCOUNTER 2019-12-10 16:09 | Emergency (ER) | payer OTHER ==
[~2019-12-10] VITALS: Ht 162.6 cm; Wt 109.1 kg
[2019-12-10 16:21] VITALS: Ht 162.6 cm; Wt 109.1 kg
[2019-12-10] MEDS ORDERED: LISINOPRIL20 MG PO (16:22)
[2019-12-10] MEDS ORDERED: FUROSEMIDE40 MG PO (16:23)
[2019-12-10 18:50] LABS: BASOPHILS 0.2 % (0-2); EOSINOPHILS 0.6 % (0-7); HEMOGLOBIN 12.3 g/dL (12-16); IMMATURE GRANULOCYTES 0.2 % (0-5); LYMPHOCYTES 14.6 % (15-50); MCH 33.7 pg (26.0-34.0); MCHC 33.2 g/dL (31.0-37.0); MCV 101.4 fL (80.0-100.0); MEAN PLATELET VOLUME 11.5 fL (7.4-10.4); MONOCYTES 16.1 % (2-11); NEUTROPHILS 68.3 % (40-80); PLATELET COUNT 126 10x3/uL (130-400); RBC 3.65 10x6/uL (4.00-5.40); RDW 16.8 % (11.5-14.5); WBC 4.7 10x3/uL (4.8-10.8)
[2019-12-10 18:55] LABS: INR 1.13 (0.85-1.17); PROTIME 14.4 SECONDS (11.6-15.0)
[2019-12-10 18:56] LABS: CALC OSMOLALITY 285 mosm/kg (275-300); CALCIUM 9.1 mg/dL (8.5-10.1); CHLORIDE - SERUM 100 mmol/L (98-107); CREATININE - SERUM 1.5 mg/dL (0.6-1.3); GLUCOSE 113 mg/dL (74-106); POTASSIUM - SERUM 3.6 mmol/L (3.5-5.1); SODIUM 138 mmol/L (136-145); UREA NITROGEN 37 mg/dL (7-18); eGFR NON AFRICAN AMERICAN 37 mL/min (90-120)
[2019-12-10 19:13] LABS: ALBUMIN 3.6 g/dL (3.4-5.0); ALKALINE PHOSPHATASE 53 U/L (30-120); ALT (SGPT) 22 U/L (10-68); BILIRUBIN - TOTAL 1.36 mg/dL (0.2-1.3); CREATINE KINASE 16 UL (21-215); PRO BNP 2639 pg/mL (0-125); PROTEIN - SERUM 7.1 g/dL (6.4-8.2)
[2019-12-10 19:15] LABS: TROPONIN-I < 0.017 ng/mL (0.000-0.060)
[2019-12-10 19:42] LABS: BILIRUBIN NEGATIVE (NEGATIVE); GLUCOSE NEGATIVE (NEGATIVE); KETONE NEGATIVE (NEGATIVE); NITRITE NEGATIVE (NEGATIVE); UROBILINOGEN NORMAL (NORMAL)
[2019-12-10 19:46] LABS: BACTERIA FEW /hpf (NEGATIVE); RED CELLS - URINE 0-5 /hpf (0-5); WHITE CELLS - URINE OCC /hpf (NEGATIVE); YEAST OCC /hpf (NONE SEEN)
[2019-12-10] MEDS ORDERED: MACROBID100 MG PO (19:55)
[2019-12-10 20:24] VITALS: BP 118/89
== END 2019-12-10 20:25 | disposition home or self-care (01) ==
LOC: D.ER 16:09
PROVIDERS: Family Medicine
DX: R06.02 Shortness of breath (principal); N39.0 Urinary tract infection, site not specified; J44.9 Chronic obstructive pulmonary disease, unspecified; Z72.0 Tobacco use; I10 Essential (primary) hypertension; R05 Cough

== ENCOUNTER 2020-01-09 03:37 | Inpatient (IN) | payer OTHER ==
[2020-01-09] VITALS (43 sets, daily range): BP systolic 68–149; BP diastolic 35–91; Ht 162.6 cm; Wt 111.7 kg
[~2020-01-09] VITALS: Ht 162.6 cm; Wt 111.7 kg
[~2020-01-09 03:37] MED LIST changes: +FUROSEMIDE40 MG PO; +LISINOPRIL20 MG PO; +MACROBID100 MG PO
--- NOTE | 2020-01-09 04:21 | NUR ---
FSBS 115
--- NOTE | 2020-01-09 04:42 | NUR ---
B/P 68/42. IV NS BOLUS STARTED
--- NOTE | 2020-01-09 05:05 | NUR ---
TO CT VIA STRETCHER
[2020-01-09 05:06] LABS: CALC OSMOLALITY 266 mosm/kg (275-300); CALCIUM 8.3 mg/dL (8.5-10.1); CARBON DIOXIDE 23.7 mmol/L (21.0-32.0); CHLORIDE - SERUM 91 mmol/L (98-107); CREATININE - SERUM 3.4 mg/dL (0.6-1.3); GLUCOSE 97 mg/dL (74-106); POTASSIUM - SERUM 3.8 mmol/L (3.5-5.1); SODIUM 128 mmol/L (136-145); UREA NITROGEN 41 mg/dL (7-18); eGFR NON AFRICAN AMERICAN 15 mL/min (90-120)
[2020-01-09 05:22] LABS: ALBUMIN 3.1 g/dL (3.4-5.0); ALKALINE PHOSPHATASE 48 U/L (30-120); ALT (SGPT) 22 U/L (10-68); BILIRUBIN - TOTAL 0.51 mg/dL (0.2-1.3); CKMB 0.8 U/L (0.0-3.6); CREATINE KINASE 69 UL (21-215); MAGNESIUM - SERUM 2.3 mg/dL (1.8-2.4); THYROID STIMULATING HORMONE 3.16 uIU/mL (0.36-3.74); TROPONIN-I < 0.017 ng/mL (0.000-0.060)
--- NOTE | 2020-01-09 06:05 | NUR ---
B/P 86/50 2ND BOLUS NS STARTED ALONG WITH LEVOFED @5 MCG/MIN. IV INFILTRATED. IV RESITED TO L FA AND RESTARTED LEVOFED AND NS BOLUS
[2020-01-09 06:40] LABS: UDS - AMPHET NEGATIVE QUAL (NEGATIVE); UDS - BARB NEGATIVE QUAL (NEGATIVE); UDS - BENZO POSITIVE QUAL (NEGATIVE); UDS - COCAINE NEGATIVE QUAL (NEGATIVE); UDS - OPIATE POSITIVE QUAL (NEGATIVE); UDS - PCP NEGATIVE QUAL (NEGATIVE); UDS - THC NEGATIVE QUAL (NEGATIVE)
[2020-01-09 06:49] LABS: BASOPHILS 0.2 % (0-2); EOSINOPHILS 1.2 % (0-7); HEMATOCRIT 32.5 % (36.0-48.0); HEMOGLOBIN 11.1 g/dL (12-16); IMMATURE GRANULOCYTES 0.7 % (0-5); LYMPHOCYTES 31.8 % (15-50); MCH 35.2 pg (26.0-34.0); MCHC 34.2 g/dL (31.0-37.0); MCV 103.2 fL (80.0-100.0); MEAN PLATELET VOLUME 12.3 fL (7.4-10.4); NEUTROPHILS 54.1 % (40-80); PLATELET COUNT 115 10x3/uL (130-400); RBC 3.15 10x6/uL (4.00-5.40); RDW 14.8 % (11.5-14.5); WBC 5.8 10x3/uL (4.8-10.8)
[2020-01-09 06:58] LABS: BILIRUBIN NEGATIVE (NEGATIVE); GLUCOSE NEGATIVE (NEGATIVE); KETONE NEGATIVE (NEGATIVE); NITRITE NEGATIVE (NEGATIVE); SPECIFIC GRAVITY 1.015 (1.005-1.020); UROBILINOGEN NORMAL (NORMAL)
--- NOTE | 2020-01-09 06:58 | NUR ---
B/P 112/60 MAP 70 HR 77. LEVOFED REMAINS @ 5 MCG/MIN
--- NOTE | 2020-01-09 07:11 | NUR ---
REPORT CALLED TO Adin IN ICU
[2020-01-09 07:46] LABS: APTT 21.8 SECONDS (22.8-39.4)
[2020-01-09 08:08] LABS: INR 1.06 (0.85-1.17); PROTIME 13.7 SECONDS (11.6-15.0)
--- NOTE | 2020-01-09 08:23 | NUR ---
PT ARRIVED FROM ER WITH STAFF. ICU MONITORS IN USE PT POSITIONED FOR COMFORT. WILL CONTINUE TO MONITOR.
[2020-01-09 09:40] LABS: % SATURATION 43 % (15-55); IRON 101 ug/dl (35-150); TOTAL IRON BIND CAPACITY 234 ug/dl (260-445); UNSAT IRON BIND CAPACITY 133 ug/dl (150-375)
[2020-01-10] VITALS (7 sets, daily range): BP systolic 128–149; BP diastolic 83–103
[2020-01-10 04:53] LABS: BASOPHILS 0.2 % (0-2); EOSINOPHILS 1.5 % (0-7); HEMATOCRIT 32.4 % (36.0-48.0); HEMOGLOBIN 10.8 g/dL (12-16); LYMPHOCYTES 20.3 % (15-50); MCH 34.7 pg (26.0-34.0); MCHC 33.3 g/dL (31.0-37.0); MCV 104.2 fL (80.0-100.0); MEAN PLATELET VOLUME 11.7 fL (7.4-10.4); MONOCYTES 13.9 % (2-11); NEUTROPHILS 64.1 % (40-80); RBC 3.11 10x6/uL (4.00-5.40); RDW 14.9 % (11.5-14.5); WBC 4.5 10x3/uL (4.8-10.8)
[2020-01-10 05:02] LABS: ANION GAP 13.1 mmol/L (8-16); CALCIUM 8.1 mg/dL (8.5-10.1); CARBON DIOXIDE 24.8 mmol/L (21.0-32.0); POTASSIUM - SERUM 3.9 mmol/L (3.5-5.1)
[2020-01-10 05:14] LABS: CREATININE - SERUM 2.2 mg/dL (0.6-1.3)
[2020-01-10 05:44] LABS: PLATELET COUNT 69 10x3/uL (130-400)
[2020-01-10 10:06] LABS: PLATELET ESTIMATE DECREASED
== END 2020-01-10 15:02 | disposition home or self-care (01) | DRG 682 ==
LOC: D.ER 03:37 → D.ICU 06:48
PROVIDERS: Family Medicine; ADMIT Internal Medicine Nephrology; ATTEND Internal Medicine Nephrology
DX: N17.9 Acute kidney failure, unspecified (principal); R57.1 Hypovolemic shock; F17.203 Nicotine dependence unspecified, with withdrawal; E87.1 Hypo-osmolality and hyponatremia; D53.9 Nutritional anemia, unspecified; D69.6 Thrombocytopenia, unspecified; F10.10 Alcohol abuse, uncomplicated; I10 Essential (primary) hypertension; J44.9 Chronic obstructive pulmonary disease, unspecified; I48.91 Unspecified atrial fibrillation; K75.9 Inflammatory liver disease, unspecified; G89.29 Other chronic pain; M54.9 Dorsalgia, unspecified